=== PATIENT | male | born 1945 | race Caucasian/White ===

== ENCOUNTER → 2018-01-18 08:56 | Outpatient (CLI) | payer MEDICARE, SELFPAY ==
[2018-01-18 12:47] LABS: Absolute Lymphocyte Count 2.66 X10^3/ul (0.83-4.51); Absolute Neutrophil Count 2.2 X10^3/uL (2.0-7.7); Basophil# 0.03 X10^3/uL; Basophil% 0.5 % (0-1); Eosinophil# 0.29 X10^3/uL; Hematocrit 49.6 % (40-54); Lymphocyte # 2.66 X10^3/ul (4.0); Lymphocyte % 45.9 % (19-41); Mean Corp Hgb Conc 34.3 g/gl (32-36); Mean Corpuscular Hgb 31.7 pg (27.0-32.0); Mean Corpuscular Volume 92.5 fL (80-94); Mean Platelet Vol. 10.6 fl (6.2-12.0); Monocyte# 0.61 X10^3/uL; Monocyte% 10.5 % (0-10); Neutrophil # 2.18 X10^3/uL (2.7-7.7); Neutrophil % 37.8 % (47-70); Platelet Count 141 K/mm3 (150-450); RBC Distribution Width CV 12.4 % (11.6-14.6); RBC Distribution Width SD 41.7 fl (35.1-43.9); Red Blood Count 5.36 M/mm3 (4.6-6.2); White Blood Count 5.8 K/mm3 (4.4-11.0)
[2018-01-18 12:50] LABS: POSITIVE COUNT NO; POSITIVE DIFFERENTIAL NO; POSITIVE MORPHOLOGY NO
[2018-01-18 13:09] LABS: Vitamin D,25 Hydroxy 12.6 ng/mL (29.95-100.01)
[2018-01-18 13:15] LABS: ALB/GLOB Ratio 1.3 RATIO (0.9-2.4); AST(SGOT) 47 U/L (15-37); Alanine Aminotransfer ALT/SGPT 125 U/L (16-61); Albumin, Serum 4.4 g/dL (3.2-5.0); Alkaline Phosphatase 44 U/L (45-117); Anion Gap 9 (5-15); BUN 19 mg/dL (7-18); BUN/Creat Ratio 15.7 RATIO (10-20); Calcium,Total 8.8 mg/dL (8.5-10.1); Chloride 99 mmol/L (98-107); Creatinine, Serum 1.21 mg/dL (0.70-1.30); EST Glomerular Filtration Rate 62 mL/min (>60); Est Glom Filt Rate - Afr Amer 75 mL/min (>60); Globulin 3.5 g/dL (2.2-4.2); Glucose 105 mg/dL (74-106); Protein, Total 7.9 g/dL (6.4-8.2); Sodium Level 136 mmol/L (136-145); Thyroid Stim Hormone (TSH) 2.05 uIU/mL (0.358-3.74)
== END ==
PROVIDERS: Family Provider Family Medicine Geriatric Medicine; PCP Family Medicine Geriatric Medicine; Visit Provider Family Medicine Geriatric Medicine
DX: E55.9 Vitamin D deficiency, unspecified (principal); I10 Essential (primary) hypertension
CPT/HCPCS: 36415; 80053; 82306; 84443; 85025

== ENCOUNTER → 2018-12-09 10:05 | Outpatient (CLI) | payer MEDICARE, SELFPAY ==
[2018-08-05 08:35] VITALS: BMI 31.8
--- NOTE | 2018-12-09 10:08 | RAD_ITS ---
STUDY: X-RAY - RIGHT FOOT CLINICAL: Male, 73 years old. Pain along the plantar aspect of the foot. No known injury. TECHNIQUE: 3 view(s) of the foot. COMPARISON: None. FINDINGS: There is an enthesophyte involving the posterior superior calcaneus at the site of insertion of the Achilles tendon. Normal visualized subtalar, talonavicular, calcaneocuboid, tarsal and tarsometatarsal articulations. Normal metatarsi. Normal metatarsophalangeal joint of the great toe. Normal tibial and fibular sesamoid bones. Normal interphalangeal joint of the great toe. Normal phalanges of the great toe. Normal second through fifth metatarsophalangeal joints. Normal interphalangeal joints and phalanges of the lesser toes. The soft tissue structures are unremarkable. RAD/Foot min 3 Views IMPRESSION: Small spur at the insertion of the Achilles tendon. Electronically Signed: Mitchel Pearson, at 11:19 EDT , Service support ,
== END ==
PROVIDERS: Family Provider Family Medicine Geriatric Medicine; PCP Family Medicine Geriatric Medicine; Referring Provider Family Medicine Geriatric Medicine; Visit Provider Family Medicine Geriatric Medicine
DX: M79.671 Pain in right foot (principal)
CPT/HCPCS: 73630

== ENCOUNTER → 2019-01-20 09:51 | Outpatient (CLI) | payer MEDICARE, SELFPAY ==
[2018-08-05 08:35] VITALS: BMI 31.8
[2019-01-20 12:41] LABS: Absolute Lymphocyte Count 2.41 X10^3/uL (0.83-4.51); Absolute Neutrophil Count 1.8 X10^3/uL (2.0-7.7); Basophil# 0.06 X10^3/uL; Basophil% 1.1 % (0-1); Eosinophil# 0.41 X10^3/uL; Eosinophils% 7.6 % (0-5); Hemoglobin 15.4 g/dL (13.0-16.5); Lymphocyte # 2.41 X10^3/ul (4.0); Lymphocyte % 44.9 % (19-41); Mean Corp Hgb Conc 33.5 g/dL (32-36); Mean Corpuscular Hgb 31.3 pg (27.0-32.0); Mean Corpuscular Volume 93.5 fL (80-94); Mean Platelet Vol. 9.9 fl (6.2-12.0); Monocyte# 0.61 X10^3/uL; Monocyte% 11.4 % (0-10); NRBC Flagged by Analyzer 0 % (0-5); Neutrophil # 1.82 X10^3/uL (2.7-7.7); Neutrophil % 33.9 % (47-70); Platelet Count 154 K/mm3 (150-450); RBC Distribution Width CV 12.2 % (11.6-14.6); RBC Distribution Width SD 41.9 fl (35.1-43.9); Red Blood Count 4.92 M/mm3 (4.6-6.2); White Blood Count 5.4 K/mm3 (4.4-11.0)
[2019-01-20 12:58] LABS: Vitamin D,25 Hydroxy 22.8 ng/mL (29.95-100.01)
[2019-01-20 13:01] LABS: ALB/GLOB Ratio 1.2 RATIO (0.9-2.4); AST(SGOT) 28 U/L (15-37); Alanine Aminotransfer ALT/SGPT 77 U/L (16-61); Albumin, Serum 4.2 g/dL (3.2-5.0); Alkaline Phosphatase 39 U/L (45-117); Anion Gap 8 (5-15); BUN 19 mg/dL (7-18); BUN/Creat Ratio 16.1 RATIO (10-20); Calcium,Total 8.8 mg/dL (8.5-10.1); Chloride 103 mmol/L (98-107); Creatinine, Serum 1.18 mg/dL (0.70-1.30); EST Glomerular Filtration Rate 64 mL/min (>60); Est Glom Filt Rate - Afr Amer 77 mL/min (>60); Globulin 3.4 g/dL (2.2-4.2); Glucose 108 mg/dL (74-106); Potassium 4.1 mmol/L (3.5-5.1); Protein, Total 7.6 g/dL (6.4-8.2); Sodium Level 139 mmol/L (136-145); Thyroid Stim Hormone (TSH) 1.49 uIU/mL (0.358-3.74); Uric Acid 6.5 mg/dL (3.5-7.2)
== END ==
PROVIDERS: Family Provider Family Medicine Geriatric Medicine; PCP Family Medicine Geriatric Medicine; Visit Provider Family Medicine Geriatric Medicine
DX: E55.9 Vitamin D deficiency, unspecified (principal); I10 Essential (primary) hypertension; M10.9 Gout, unspecified
CPT/HCPCS: 36415; 80053; 82306; 84443; 84550; 85025

== ENCOUNTER → 2020-01-23 09:48 | Outpatient (CLI) | payer MEDICARE, SELFPAY ==
[2019-08-04 09:23] VITALS: BMI 29.2
[2020-01-23 12:04] LABS: Absolute Lymphocyte Count 2.76 X10^3/uL (0.83-4.51); Absolute Neutrophil Count 1.8 X10^3/uL (2.0-7.7); Basophil# 0.07 X10^3/uL; Basophil% 1.3 % (0-1); Eosinophil# 0.31 X10^3/uL; Eosinophils% 5.7 % (0-5); Hematocrit 47.2 % (40-54); Hemoglobin 16.3 g/dL (13.0-16.5); Lymphocyte # 2.76 X10^3/ul (4.0); Lymphocyte % 50.4 % (19-41); Mean Corp Hgb Conc 34.5 g/dL (32-36); Mean Corpuscular Hgb 32.1 pg (27.0-32.0); Mean Corpuscular Volume 93.1 fL (80-94); Mean Platelet Vol. 10.3 fl (6.2-12.0); Monocyte# 0.54 X10^3/uL; Monocyte% 9.9 % (0-10); NRBC Flagged by Analyzer 0 % (0-5); Neutrophil # 1.75 X10^3/uL (2.7-7.7); Neutrophil % 31.8 % (47-70); Platelet Count 144 K/mm3 (150-450); RBC Distribution Width CV 11.9 % (11.6-14.6); RBC Distribution Width SD 40.1 fl (35.1-43.9); Red Blood Count 5.07 M/mm3 (4.6-6.2); White Blood Count 5.5 K/mm3 (4.4-11.0)
[2020-01-23 12:32] LABS: Vitamin D,25 Hydroxy 18.8 ng/mL
[2020-01-23 13:00] LABS: ALB/GLOB Ratio 1.3 RATIO (0.9-2.4); AST(SGOT) 32 U/L (15-37); Alanine Aminotransfer ALT/SGPT 91 U/L (16-61); Albumin, Serum 4.2 g/dL (3.2-5.0); Alkaline Phosphatase 40 U/L (45-117); Anion Gap 7 (5-15); BUN 16 mg/dL (7-18); BUN/Creat Ratio 12.9 RATIO (10-20); Calcium,Total 8.8 mg/dL (8.5-10.1); Chloride 103 mmol/L (98-107); Creatinine, Serum 1.24 mg/dL (0.70-1.30); EST Glomerular Filtration Rate 60 mL/min (>60); Est Glom Filt Rate - Afr Amer 73 mL/min (>60); Globulin 3.3 g/dL (2.2-4.2); Glucose 135 mg/dL (74-106); Potassium 3.5 mmol/L (3.5-5.1); Protein, Total 7.5 g/dL (6.4-8.2); Sodium Level 138 mmol/L (136-145); Thyroid Stim Hormone (TSH) 1.82 uIU/mL (0.358-3.74)
== END ==
PROVIDERS: PCP Family Medicine Geriatric Medicine; Visit Provider Family Medicine Geriatric Medicine
DX: I10 Essential (primary) hypertension (principal); E55.9 Vitamin D deficiency, unspecified
CPT/HCPCS: 36415; 80053; 82306; 84443; 85025

== ENCOUNTER → 2021-01-23 09:17 | Outpatient (CLI) | payer MEDICARE, SELFPAY ==
[2021-01-23 12:26] LABS: Absolute Lymphocyte Count 2.85 X10^3/uL (0.83-4.51); Absolute Neutrophil Count 1.6 X10^3/uL (2.0-7.7); Basophil# 0.08 X10^3/uL; Basophil% 1.4 % (0-1); Eosinophil# 0.62 X10^3/uL; Eosinophils% 10.7 % (0-5); Hematocrit 47.3 % (40-54); Hemoglobin 16.5 g/dL (13.0-16.5); Lymphocyte # 2.85 X10^3/ul (0.83-4.51); Lymphocyte % 49.3 % (19-41); Mean Corp Hgb Conc 34.9 g/dL (32-36); Mean Corpuscular Hgb 31.9 pg (27.0-32.0); Mean Corpuscular Volume 91.5 fL (80-94); Mean Platelet Vol. 10.4 fl (6.2-12.0); Monocyte# 0.57 X10^3/uL; Monocyte% 9.9 % (0-10); NRBC Flagged by Analyzer 0 % (0-5); Neutrophil # 1.62 X10^3/uL (2.7-7.7); Platelet Count 129 K/mm3 (150-450); RBC Distribution Width CV 11.9 % (11.6-14.6); RBC Distribution Width SD 39.8 fl (35.1-43.9); Red Blood Count 5.17 M/mm3 (4.6-6.2); White Blood Count 5.8 K/mm3 (4.4-11.0)
[2021-01-23 12:49] LABS: Vitamin D,25 Hydroxy 19.9 ng/mL
[2021-01-23 13:25] LABS: ALB/GLOB Ratio 1.2 RATIO (0.9-2.4); AST(SGOT) 38 U/L (15-37); Alanine Aminotransfer ALT/SGPT 112 U/L (16-61); Albumin, Serum 4.1 g/dL (3.2-5.0); Alkaline Phosphatase 57 U/L (45-117); Anion Gap 9 (5-15); BUN 17 mg/dL (7-18); BUN/Creat Ratio 14.4 RATIO (10-20); Chloride 103 mmol/L (98-107); Creatinine, Serum 1.18 mg/dL (0.70-1.30); EST Glomerular Filtration Rate 64 mL/min (>60); Est Glom Filt Rate - Afr Amer 77 mL/min (>60); Globulin 3.4 g/dL (2.2-4.2); Glucose 110 mg/dL (74-106); Protein, Total 7.5 g/dL (6.4-8.2); Sodium Level 138 mmol/L (136-145); Thyroid Stim Hormone (TSH) 1.91 uIU/mL (0.358-3.74); Uric Acid 7.4 mg/dL (3.5-7.2)
== END ==
PROVIDERS: PCP Family Medicine Geriatric Medicine; Visit Provider Family Medicine Geriatric Medicine
DX: I10 Essential (primary) hypertension (principal); E55.9 Vitamin D deficiency, unspecified; M10.9 Gout, unspecified
CPT/HCPCS: 36415; 80053; 82306; 84443; 84550; 85025

== ENCOUNTER → 2021-02-01 07:03 | Outpatient (CLI) | payer MEDICARE, SELFPAY ==
--- NOTE | 2021-02-01 07:09 | US_ITS ---
STUDY: ABDOMINAL ULTRASOUND - RIGHT UPPER QUADRANT REASON FOR VISIT: Male, 75 years old ABN LIVER ENZYMES TECHNIQUE: Ultrasound evaluation of the right upper quadrant was performed with real-time and static barajas-scale imaging. TECHNICAL QUALITY: Adequate. COMPARISON: None. FINDINGS: Liver: The liver measures 16.4 cm. There is increased echogenicity consistent with fatty infiltration. The bile ducts are within normal limits. There is hepatic color flow. The direction of portal flow is hepatopetal. There is a 1.1 cm x 0.7 cm x 0.7 cm cyst in the left lobe of the liver. Gallbladder: The patient is status post cholecystectomy. Common Bile Duct (C.B.D.): The common bile duct measures 5.4 mm. Pancreas: Normal size of the head, body and tail of the pancreas. There is increased echogenicity of the pancreas. There is no demonstrated pancreatic mass or cyst. Right Kidney: Normal size of the right kidney. The right kidney measures 11.4 cm x 4.8 cm x 5 cm. Normal renal cortex. The right cortex measures 1.2 cm. There is no demonstrated renal mass or cyst. There is no right hydronephrosis. IMPRESSION: Fatty infiltration of the liver. 1.1 cm x 0.7 cm x 0.7 cm cyst in the left lobe of the liver. Status post cholecystectomy. Electronically Signed: Mitchel Pearson MD at 12:28 EST , Service support , STUDY: ABDOMINAL ULTRASOUND - ELASTOGRAPHY REASON FOR VISIT: Male, 75 years old. Fatty infiltration of the liver. Elevated liver enzymes. TECHNIQUE: Liver stiffness measurements were obtained on a doggyloot RS 85 ultrasound machine using a CA 1-7 probe following the SRU guidelines. 3 measurements were obtained using a 2-D-SWE method. The IQR/M was 24% suggesting a quality data set. TECHNICAL QUALITY: Adequate. COMPARISON: Comparison is made with prior sonogram done earlier today. FINDINGS: Liver: There is fatty infiltration of the liver. Median liver stiffness measured 7.5 kPa. US/Abdomen Limited IMPRESSION: Liver stiffness measures 7.5 kPa compatible with F2 Metavir score. Electronically Signed: Mitchel Pearson MD at 12:30 EST , Service support ,
--- NOTE | 2021-02-01 07:09 | US_ITS ---
STUDY: ABDOMINAL ULTRASOUND - RIGHT UPPER QUADRANT REASON FOR VISIT: Male, 75 years old ABN LIVER ENZYMES TECHNIQUE: Ultrasound evaluation of the right upper quadrant was performed with real-time and static barajas-scale imaging. TECHNICAL QUALITY: Adequate. COMPARISON: None. FINDINGS: Liver: The liver measures 16.4 cm. There is increased echogenicity consistent with fatty infiltration. The bile ducts are within normal limits. There is hepatic color flow. The direction of portal flow is hepatopetal. There is a 1.1 cm x 0.7 cm x 0.7 cm cyst in the left lobe of the liver. Gallbladder: The patient is status post cholecystectomy. Common Bile Duct (C.B.D.): The common bile duct measures 5.4 mm. Pancreas: Normal size of the head, body and tail of the pancreas. There is increased echogenicity of the pancreas. There is no demonstrated pancreatic mass or cyst. Right Kidney: Normal size of the right kidney. The right kidney measures 11.4 cm x 4.8 cm x 5 cm. Normal renal cortex. The right cortex measures 1.2 cm. There is no demonstrated renal mass or cyst. There is no right hydronephrosis. IMPRESSION: Fatty infiltration of the liver. 1.1 cm x 0.7 cm x 0.7 cm cyst in the left lobe of the liver. Status post cholecystectomy. Electronically Signed: Mitchel Pearson MD at 12:28 EST , Service support , STUDY: ABDOMINAL ULTRASOUND - ELASTOGRAPHY REASON FOR VISIT: Male, 75 years old. Fatty infiltration of the liver. Elevated liver enzymes. TECHNIQUE: Liver stiffness measurements were obtained on a [employer] RS 85 ultrasound machine using a CA 1-7 probe following the SRU guidelines. 3 measurements were obtained using a 2-D-SWE method. The IQR/M was 24% suggesting a quality data set. TECHNICAL QUALITY: Adequate. COMPARISON: Comparison is made with prior sonogram done earlier today. FINDINGS: Liver: There is fatty infiltration of the liver. Median liver stiffness measured 7.5 kPa. US/Elastography Parenchyma/Organ IMPRESSION: Liver stiffness measures 7.5 kPa compatible with F2 Metavir score. Electronically Signed: Mitchel Pearson MD at 12:30 EST , Service support ,
== END ==
PROVIDERS: PCP Family Medicine Geriatric Medicine; Referring Provider Family Medicine Geriatric Medicine; Visit Provider Family Medicine Geriatric Medicine
DX: R74.8 Abnormal levels of other serum enzymes (principal)
CPT/HCPCS: 76705; 76981

== ENCOUNTER 2022-01-29 08:59 | Outpatient (CLI) | payer MEDICARE, SELFPAY ==
[2022-01-29 12:23] LABS: Absolute Lymphocyte Count 2.26 X10^3/uL (0.83-4.51); Absolute Neutrophil Count 1.6 X10^3/uL (2.0-7.7); Basophil# 0.08 X10^3/uL; Basophil% 1.5 % (0-1); Eosinophils% 13.5 % (0-5); Hematocrit 47.1 % (40-54); Hemoglobin 16.4 g/dL (13.0-16.5); Lymphocyte # 2.26 X10^3/ul (0.83-4.51); Lymphocyte % 43.5 % (19-41); Mean Corp Hgb Conc 34.8 g/dL (32-36); Mean Corpuscular Hgb 32.6 pg (27.0-32.0); Mean Corpuscular Volume 93.6 fL (80-94); Mean Platelet Vol. 10.3 fl (6.2-12.0); Monocyte% 9.6 % (0-10); NRBC Flagged by Analyzer 0 % (0-5); Neutrophil # 1.62 X10^3/uL (2.7-7.7); Neutrophil % 31.1 % (47-70); Platelet Count 133 K/mm3 (150-450); RBC Distribution Width CV 12.1 % (11.6-14.6); RBC Distribution Width SD 42.2 fl (35.1-43.9); Red Blood Count 5.03 M/mm3 (4.6-6.2); White Blood Count 5.2 K/mm3 (4.4-11.0)
[2022-01-29 12:40] LABS: Vitamin D,25 Hydroxy 21.8 ng/mL
[2022-01-29 13:15] LABS: ALB/GLOB Ratio 1.5 RATIO (0.9-2.4); AST(SGOT) 32 U/L (15-37); Alanine Aminotransfer ALT/SGPT 89 U/L (16-61); Albumin, Serum 4.4 g/dL (3.2-5.0); Alkaline Phosphatase 51 U/L (45-117); Anion Gap 10 (5-15); BUN 22 mg/dL (7-18); BUN/Creat Ratio 21.2 RATIO (10-20); Calcium,Total 9.3 mg/dL (8.5-10.1); Chloride 106 mmol/L (98-107); Creatinine, Serum 1.04 mg/dL (0.70-1.30); EST Glomerular Filtration Rate 73 mL/min (>60); Est Glom Filt Rate - Afr Amer 89 mL/min (>60); Glucose 105 mg/dL (74-106); Protein, Total 7.4 g/dL (6.4-8.2); Sodium Level 141 mmol/L (136-145); Thyroid Stim Hormone (TSH) 2.27 uIU/mL (0.358-3.74)
== END 2022-01-29 23:59 | disposition home or self-care (01) ==
LOC: POLAB3 08:59
PROVIDERS: PCP Family Medicine Geriatric Medicine; Visit Provider Family Medicine Geriatric Medicine
DX: E55.9 Vitamin D deficiency, unspecified (principal); R53.83 Other fatigue
CPT/HCPCS: 36415; 80053; 82306; 84443; 85025

== ENCOUNTER → 2023-02-02 | Outpatient (CLI) | payer MEDICARE, SELFPAY ==
[2023-02-02 14:56] LABS: Absolute Neutrophil Count 2.1 X10^3/uL (2.0-7.7); Basophil# 0.05 X10^3/uL; Basophil% 0.9 % (0-1); Eosinophil# 0.64 X10^3/uL; Eosinophils% 11.1 % (0-5); Hematocrit 48.6 % (40-54); Hemoglobin 16.1 g/dL (13.0-16.5); Lymphocyte % 41.5 % (19-41); Mean Corp Hgb Conc 33.1 g/dL (32-36); Mean Corpuscular Hgb 31.4 pg (27.0-32.0); Mean Corpuscular Volume 94.9 fL (80-94); Mean Platelet Vol. 10.6 fl (6.2-12.0); Monocyte# 0.58 X10^3/uL; NRBC Flagged by Analyzer 0 % (0-5); Neutrophil # 2.07 X10^3/uL (2.7-7.7); Neutrophil % 35.8 % (47-70); Platelet Count 112 K/mm3 (150-450); RBC Distribution Width CV 12.1 % (11.6-14.6); RBC Distribution Width SD 42.5 fl (35.1-43.9); Red Blood Count 5.12 M/mm3 (4.6-6.2); White Blood Count 5.8 K/mm3 (4.4-11.0)
[2023-02-02 15:06] LABS: Vitamin D,25 Hydroxy 26.3 ng/mL
[2023-02-02 15:18] LABS: ALB/GLOB Ratio 1.2 RATIO (0.9-2.4); AST(SGOT) 27 U/L (15-37); Alanine Aminotransfer ALT/SGPT 68 U/L (16-61); Alkaline Phosphatase 47 U/L (45-117); Anion Gap 5 (5-15); BUN 24 mg/dL (7-18); BUN/Creat Ratio 19.8 RATIO (10-20); Calcium,Total 8.4 mg/dL (8.5-10.1); Chloride 111 mmol/L (98-107); Creatinine, Serum 1.21 mg/dL (0.70-1.30); EST Glomerular Filtration Rate 61 mL/min (>60); Est Glom Filt Rate - Afr Amer 74 mL/min (>60); Globulin 3.4 g/dL (2.2-4.2); Glucose 114 mg/dL (74-106); Potassium 4.8 mmol/L (3.5-5.1); Protein, Total 7.4 g/dL (6.4-8.2); Sodium Level 142 mmol/L (136-145); Thyroid Stim Hormone (TSH) 1.43 uIU/mL (0.358-3.74)
== END | disposition home or self-care (01) ==
LOC: POLAB3 13:58
PROVIDERS: PCP Family Medicine Geriatric Medicine; Visit Provider Family Medicine Geriatric Medicine
DX: I10 Essential (primary) hypertension (principal); E55.9 Vitamin D deficiency, unspecified
CPT/HCPCS: 36415; 80053; 82306; 84443; 85025

== ENCOUNTER 2023-04-15 10:30 | Outpatient (RCR) | payer MEDICARE, SELFPAY ==
--- NOTE | 2023-03-19 15:49 | HP.PTEVAL_ITS ---
Patient's Visit Information Visit Information Visit Information: TED DIOR is a 77 year old M referred to Physical Therapy by Dr. Forrest Kay MD with a diagnosis of Parkinsonism. Date of Evaluation: 03/19/23 Physical Therapist: MARYJANE Arreola Visit Plan Frequency: 2x /Week Duration: 4 Weeks Plan: Schedule balance eval on machine 2X/ week for 4 weeks for gait training, balance training foam and no foam, picking up objects form the floor, curb steps, stepping over hurdles with HEP HEP: LTR, Bridges, standing heel and toe raises, seated and standing opp arm and leg Subjective Subjective: Pt was recently dx with PD. He has never gotten the official PD dx but it is what it could be. He has shaking on the L hand and only in the mo rning when he gets up. He has an intentional tremor. He has LBP (has 5 gardens and down on his knees a lot picking up weeds and needs assistance to get up with a chair etc). He gets to the point that he gets a pain and then goes in a rests a little and then can go back out to the garden. He does not notices it when he does things or when sleeping. The back pain will stop him from completing a task and needs to rest to complete the task. He thinks that Dr Kay notices that he is walking different. He notices some weakness and hard to walk on uneven surfaces and a little more unsteady. He has on occ recently taken a cane with him when unsteady that he made. Stairs: not an issue. He is able to get out of a chair without using his arms. He does not do a lot of walking. Objective Objective: LE MMT: R hip flex 15.2 and L 16.2 R knee ext 24.3 and L 24.7 R knee flex 11.8 and 14 R hip abd 12.4 and L 12.2 Bridge: 3/4 normal ROM bridge with increase pain but then did X 10 LTR to each side and was able to do a bridge without pain Pt is able to heel and toe raise WFL Sit to stand: pt is able to get up out of a chair without the use of his UE Seated opp arm and leg X 4 and then reverts to same side standing opp arm and leg X 5 and then reverts to same side FGA: 18 CATSIB 110/120 Squating to get object from floor with slight unsteadiness but able to do it Balance/Special Test Scores Functional Gait Assessment Score: 18 % Disability: 40.0000 CATSIB Score (Max score 120 seconds): 110 Lower Extremity Functional Score: 61 Goals Goal 1:: I HEP Goal Time Frame: 4-6 Weeks Goal 2:: Be able to step off a curb X 10 in a row without AD Goal Time Frame: 4-6 Weeks Goal 3:: Be able to complete X 10 standing opp arm and legs without LOB and without messing up sequence Goal Time Frame: 4-6 Weeks Goal 4:: Increase balance (FGA was 18 on eval) Goal Time Frame: 4-6 Weeks Goal 5:: Increase balance (catsib was 110/120 on eval with Foam EC the issue) Goal Time Frame: 4-6 Weeks Goal 6:: Walk with more upright posture with heel to toe gait pattern Goal Time Frame: 4-6 Weeks Rehabilitation Potential Rehabilitation Potential: Good Anticipated Interventions Text: Thank you for the opportunity to evaluate your patient. For Medicare and Medicare HMO plans, please review the plan of care and approve it. It will need to be FAXED BACK to us at [phone] for Medicare purposes. For Medicare only, by signing this I certify the plan of care. Please let me know if there are questions or concerns regarding this plan of care. Physician Signature:__ Date:
--- NOTE | 2023-04-15 11:13 | HP.PTDCSUM ---
Discharge Summary D/C summary: It has been my pleasure to treat TED DIOR referred by Dr. Forrest Kay MD, with the diagnosis of Parkinsonism for a total of 8 visit(s). Discharge Date: 04/15/23 Please see the following information for a summary of their discharge status. Subjective Subjective: Pt has been sick with diarrhea since Thursday and has not been out of bed. He wants me to go easy on him today. The dizziness went away. Pain LBP: Pain Intensity (Out of 10): 0 Objective Objective/Function: Posture: upright posture CATSIB: 120/120 FGA: 23 opp arm and leg X 12 each leg with CGA Goals Goal 1:: I HEP Goal 2:: Be able to step off a curb X 10 in a row without AD Goal 3:: Be able to complete X 10 standing opp arm and legs without LOB and without messing up sequence Goal Progress: Goal Met Goal 4:: Increase balance (FGA was 18 on eval) Goal Progress: Goal Met Goal 5:: Increase balance (catsib was 110/120 on eval with Foam EC the issue) Goal Progress: Goal Met Goal 6:: Walk with more upright posture with heel to toe gait pattern Goal Progress: Goal Met Plan Plan: DC PT to own walking period D/C Information Discharge Comments: DC PT to indep walking program d/c sentence: If there are questions or concerns regarding this patient's physical therapy, please feel free to call me at [phone]. Thank you for the referral of this patient. Sincerely, Anu Morrison, MPT Balance/Gait/Functional tests Balance/Special Test Scores Functional Gait Assessment Score: 23 % Disability: 23.3400 CATSIB Score (Max score 120 seconds): 110 Lower Extremity Functional Score: 64
== END 2023-04-15 19:00 | disposition home or self-care (01) ==
LOC: PT 10:30
PROVIDERS: PCP Family Medicine Geriatric Medicine; Referring Provider Psychiatry & Neurology Neurology; Visit Provider Psychiatry & Neurology Neurology
DX: G20.C Parkinsonism, unspecified (principal)
CPT/HCPCS: 97110; 97112; 97140; 97162; 97530

== ENCOUNTER → 2024-02-09 | Outpatient (CLI) | payer MEDICARE, SELFPAY ==
[2024-02-09 10:49] LABS: Absolute Lymphocyte Count 2.69 X10^3/uL (0.83-4.51); Absolute Neutrophil Count 2.1 X10^3/uL (2.0-7.7); Basophil# 0.05 X10^3/uL; Basophil% 0.9 % (0-1); Eosinophil# 0.45 X10^3/uL; Eosinophils% 7.8 % (0-5); Hematocrit 47.8 % (40-54); Hemoglobin 15.9 g/dL (13.0-16.5); Lymphocyte # 2.69 X10^3/ul (0.83-4.51); Lymphocyte % 46.4 % (19-41); Mean Corp Hgb Conc 33.3 g/dL (32-36); Mean Corpuscular Hgb 31.1 pg (27.0-32.0); Mean Corpuscular Volume 93.5 fL (80-94); Mean Platelet Vol. 9.8 fl (6.2-12.0); Monocyte# 0.48 X10^3/uL; Monocyte% 8.3 % (0-10); NRBC Flagged by Analyzer 0 % (0-5); Neutrophil # 2.05 X10^3/uL (2.7-7.7); Neutrophil % 35.2 % (47-70); Platelet Count 108 K/mm3 (150-450); RBC Distribution Width SD 41.6 fl (35.1-43.9); Red Blood Count 5.11 M/mm3 (4.6-6.2); White Blood Count 5.8 K/mm3 (4.4-11.0)
[2024-02-09 11:16] LABS: ALB/GLOB Ratio 1.3 RATIO (0.9-2.4); AST(SGOT) 33 U/L (15-37); Alanine Aminotransfer ALT/SGPT 17 U/L (16-61); Albumin, Serum 4.1 g/dL (3.2-5.0); Alkaline Phosphatase 53 U/L (45-117); Anion Gap 6 (5-15); BUN 22 mg/dL (7-18); BUN/Creat Ratio 18.2 RATIO (10-20); Calcium,Total 8.8 mg/dL (8.5-10.1); Chloride 111 mmol/L (98-107); Cholesterol 183 mg/dL (200); Creatinine, Serum 1.21 mg/dL (0.70-1.30); EST Glomerular Filtration Rate 61 mL/min (>60); Est Glom Filt Rate - Afr Amer 74 mL/min (>60); Globulin 3.1 g/dL (2.2-4.2); Glucose 136 mg/dL (74-106); High Density Lipoprotein 43 mg/dL; Potassium 4.3 mmol/L (3.5-5.1); Protein, Total 7.2 g/dL (6.4-8.2); Sodium Level 142 mmol/L (136-145); Triglycerides 249 mg/dL; Very Low Density Lipoprotein 50 mg/dL (5-40)
[2024-02-09 11:19] LABS: Vitamin D,25 Hydroxy 13.3 ng/mL
[2024-02-09 15:18] LABS: Hemoglobin A1c 5.6 % (3.8-5.6)
== END | disposition home or self-care (01) ==
LOC: POLAB3 10:00
PROVIDERS: PCP Family Medicine Geriatric Medicine; Visit Provider Family Medicine Geriatric Medicine
DX: I10 Essential (primary) hypertension (principal); E55.9 Vitamin D deficiency, unspecified; E78.5 Hyperlipidemia, unspecified; R73.9 Hyperglycemia, unspecified
CPT/HCPCS: 36415; 80053; 80061; 82306; 83036; 84443; 85025

== ENCOUNTER → 2025-01-18 | Outpatient (CLI) | payer MEDICARE, SELFPAY ==
--- NOTE | 2025-01-18 09:53 | ECHOCS_ITS ---
Reason For Study Reason For Study: CAD/ASHD Procedure This was a 2D Doppler, Color Flow transthoracic echocardiogram. The study was technically difficult. Contrast injection was performed. Exam performed in department. Left Ventricle Normal LV size. Left ventricular systolic function is normal. Normal diastology for age. The left ventricular ejection fraction is 65 %. No regional wall motion abnormalities noted. Right Ventricle Normal RV size. Normal systolic function. Atria Normal left atrium. Normal right atrium. Mitral Valve Normal mitral valve. Mild (1+) mitral valve insufficiency. Tricuspid Valve Normal tricuspid valve. Mild (1+) tricuspid valve insufficiency. Pulmonary artery systolic pressure is 33 mmHg. Aortic Valve Trisinus/trileaflet aortic valve. Mild focal aortic valve thickening. There is no aortic stenosis. Pulmonic Valve Normal pulmonic valve. Trivial pulmonic valve insufficiency. Great Vessels Normal sized aortic root. Pericardium/Pleural No pericardial effusion. Medication 22 gauge I.V. with prn adaptor inserted into right arm. Diluted definity 2ml given slow IV push to enhance endocardial definition. MMode/2D Measurements & Calculations LVIDd: 4.7 cm IVSd: 0.90 cm Ao root diam: 2.9 cm LVIDs: 3.1 cm LVPWd: 1.0 cm RVDd: 3.6 cm FS: 33.7 % LAV(MOD-bp): 37.6 ml LVAd ap4: 32.9 cm2 SV(MOD-sp4): 66.3 ml LAV(MOD-bp) Indexed: 17.8 ml/m2 LVLd ap4: 8.5 cm SI(MOD-sp4): 31.4 ml/m2 LAV(MOD-sp2): 41.6 ml EDV(MOD-sp4): 103.2 ml LAV(MOD-sp4): 34.4 ml EDV(sp4-el): 108.5 ml LVAs ap4: 17.6 cm2 LVLs ap4: 7.0 cm ESV(MOD-sp4): 36.9 ml ESV(sp4-el): 37.7 ml EF(MOD-sp4): 64.2 % EF(sp4-el): 65.3 % SV(sp4-el): 70.8 ml LA A4 area: 14.8 cm2 LA dimension(2D): 4.1 cm RA A4 area: 14.2 cm2 TAPSE: 2.4 cm Time Measurements MV dec time: 0.23 sec Doppler Measurements & Calculations MV E max mich: 70.8 cm/sec Lat Peak E' Mich: 5.6 cm/sec Med Peak E' Mich: 4.8 cm/sec MV A max mich: 92.7 cm/sec E/E' lat: 12.6 E/E' med: 14.6 MV E/A: 0.76 MV V2 max: 100.9 cm/sec MV P1/2t max mich: 86.4 cm/sec Ao V2 max: 151.4 cm/sec MV max P.1 mmHg MV P1/2t: 81.2 msec Ao max P.2 mmHg MV V2 mean: 54.3 cm/sec MV dec slope: 311.5 cm/sec2 Ao V2 mean: 97.7 cm/sec MV mean P.4 mmHg MVA(P1/2t): 2.7 cm2 Ao mean P.5 mmHg MV V2 VTI: 34.7 cm Ao V2 VTI: 32.0 cm AV (velocity ratio): 0.65 LV V1 max: 99.8 cm/sec PA V2 max: 154.5 cm/sec TR max mich: 272.4 cm/sec LV V1 max P.0 mmHg PA V2 mean: 92.3 cm/sec TR max P.7 mmHg LV V1 mean P.9 mmHg LV V1 mean: 64.5 cm/sec LV V1 VTI: 20.9 cm ECHO/Echo Complete W/ Contrast Interpretation Summary Normal LV size. Mild (1+) mitral valve insufficiency. Mild (1+) tricuspid valve insufficiency. Left ventricular systolic function is normal. The left ventricular ejection fraction is 65 %. Pulmonary artery systolic pressure is 33 mmHg. Contrast injection was performed. Ordering Physician: Latha Donovan Referring Physician: Latha Donovan Performed By: Chun V[facility]quze RCS
--- OUTSIDE RECORDS SUMMARY | 2025-01-18 10:25 | XMS RPT_ITS | CCD ---
Author Organization [facility] Care Team Providers Care Snow Removing Supervisor Name Role Phone EDYTA Skinner, Olimpia Knowles Unavailable Unavailabl e Gisela Wallace Unavailable Unavailable Iliana LAN, Jennifer Banda Unavailable Unavailable Gisela Wallace Unavailable Unavailable Esdras BENSON, Norman Primary Care Provider [phone] Dr. Tab Dewitt Chi Primary Care Provider [phone] Dr. Tab Dewitt Chi Referring Provider [phone] Lukas Cheng Attending Provider HERACLIO KAY Attending Unavailable ESDRAS, TAB-CHI Primary Care Unavailable BAVBILL, HERACLIO Attending Unavailable BAVBILL, HERACLIO Referring Unavailable ESDRAS, TAB-CHI Primary Care Unavailable BAVBILL, HERACLIO Attending Unavailable ESDRAS, TAB-CHI Primary Care Unavailable BAVBILL, HERACLIO Attending Unavailable ESDRAS, TAB-CHI Primary Care Unavailable BAVIS, HERACLIO Attending Unavailable ESDRAS, TAB-CHI Primary Care Unavailable BAVBILL, HERACLIO Attending Unavailable ESDRAS, TAB-CHI Primary Care Unavailable BAVBILL, HERACLIO Attending Unavailable BAVBILL, HEARCLIO Referring Unavailable ESDRAS, TAB-CHI Primary Care Unavailable BAVIS, HERACLIO Attending Unavailable BAVIS, HERACLIO Referring Unavailable ESDRAS, TAB-CHI Primary Care Unavailable Dr. Tab Dewitt MD, Chi Primary Care Physician [phone] Dr. Tab Dewitt MD, Chi Referring Provider [phone] Latha Lowe Attending Physician Esdras, Tab Chi Primary Care Unavailable Latha Lowe Referring Unavail able Latha Lowe Attending Unavail able Esdras, Tab Chi Primary Care Unavailable EsdrasTab Chi Attending Unavailable Esdras, Tab Chi Primary Care Unavailable Latha Lowe Attending Unavail able Esdras, Tab Chi Referring Unavailable Allergies Allergy Classification Reported Allergen(s) Allergy Type Date of Onset Reaction(s) Facility hydroCHLOROthiazide (2 sources) hydroCHLOROthiazide Drug Allergy [facility] Iodine (and Iodine containting drugs) (2 sources) Iodine Drug Allergy [facility] (4 sources) simvastatin drug allergy Very elevated liver enzymes [employer] Work Phone: [phone] (4 sources) BROTHER REACTION drug allergy Life-threaten ing, pt not allergic to Iodine, but brother is [employer] Work Phone: [phone] (3 sources) hydroCHLOROthiazide Drug Allergy fatigue [facility] (20 sources) Iodine Drug Allergy life threatening, pt not allergic to iodine, but brother is. [facility] (3 sources) Simvastatin Drug Allergy elevated liver enzymes [facility] (20 sources) hydroCHLOROthiazide Drug Allergy [facility] (20 sources) Simvastatin Allergy to substance [facility] (1 source) hydroCHLOROthiazide Drug Allergy [facility] Repository (1 source) Iodine Drug Allergy [facility] (1 source) Simvastatin Drug Allergy [facility] Rep[facility] Medications Current Medications Medication Drug Class(es) Dates Sig (Normalized) Sig (Original) amLODIPine 10 mg oral tablet (20 sources) Dihydropyridine Calcium Channel Lc Start: 12-22-2024 take 1 tablet by mouth once daily Start: 08-07-2020 End: 12-22-2024 take 1 tablet by mouth once daily Amlodipine 10 mg tablet Discontinued 10 mg PO DAILY 90 January 11, 2024 11:26am December 22, 2024 4:52pm Start: 08-05-2018 End: 08-07-2020 take 1 tablet by mouth once daily Amlodipine 5 mg tablet Discontinued 5 mg PO DAILY 90 August 07, 2020 10:16am August 07, 2020 10:28am Start: 07-27-2017 End: 09-18-2017 take 1 tablet by mouth once daily Amlodipine (Norvasc) 5 mg tablet Discontinued 5 mg PO daily July 27, 2017 12:00am September 18, 2017 9:05am Start: 08-11-2013 take 1 tablet by jamie th once daily NORVASC 5 MG TABS One tablet by mouth daily AMLODIPINE BESYLATE [id number] Lukas Cheng MD carbidopa 25 mg / levodopa 100 mg oral tablet (20 sources) Aromatic Amino Acid Decarboxylation Inhibitor, Aromatic Amino Acid Start: 12-11-2023 End: 02-19-2025 Start: 09-10-2023 End: 12-11-2023 take 1 tablet by mouth twice daily carbidopa-levodopa CR (Sinemet CR) 25-100 MG ER tablet Take 1 tablet by mouth 2 times daily. Do not crush, chew, or split. 180 tablet 1 09/10/2023 12/11/2023 Discontinued losartan potassium 100 mg oral tablet (20 sources) Angiotensin 2 Receptor Lc Start: 12-22-2024 take 1 tablet by mouth once daily Start: 10-27-2018 End: 12-22-2024 take 1 tablet by mouth once daily Losartan 100 mg tablet Discontinued 100 mg PO DAILY January 11, 2024 11:26am December 22, 2024 4:52pm 24 hr metoprolol succinate 50 mg extended release oral tablet (20 sources) beta-Adrenergic Lc Start: 12-22-2024 take 1 tablet by mouth once daily Start: 07-27-2017 End: 12-22-2024 take 1 tablet by mouth once daily Metoprolol Succinate 50 mg tablet extended release 24 hr Discontinued 50 mg PO daily January 11, 2024 11:26am December 22, 2024 4:52pm Start: 06-25-2010 take 1 tablet by jamie th once daily METOPROLOL SUCCINATE ER 50 MG [id number] One tablet by mouth daily METOPROLOL SUCCINATE [id number] Luis Chatman MD omeprazole 40 mg delayed rel ease oral capsule (20 sources) Proton Pump Inhibitor Start: 07-30-2017 End: 01-11-2024 Start: 07-27-2017 End: 07-30-2017 take 1 capsule by mouth once daily Omeprazole 20 mg capsule,delayed release(DR/EC) Discontinued 20 mg PO daily July 27, 2017 12:00am July 30, 2017 9:33am Start: 09-30-2011 take 1 tablet by jamie th every week OMEPRAZOLE 40 MG CPDR One tablet by mouth three days per week to daily OMEPRAZOLE [id number] Lukas Cheng MD Start: 09-30-2011 take 1 tablet by jamie th once daily OMEPRAZOLE 20 MG CPDR One tablet by mouth daily OMEPRAZOLE [id number] Lukas Cheng MD Start: 06-25-2010 take 1 tablet by jamie th once daily OMEPRAZOLE 40 MG CPDR One tablet by mouth daily OMEPRAZOLE [id number] Lukas Cheng MD tamsulosin hydrochloride 0.4 mg oral capsule (20 sources) alpha-Adrenergic Lc Start: 02-02-2023 take 1 capsule by mouth once daily Completed/Discontinued Medications Medication Drug Class(es) Dates Sig (Normalized) Sig (Original) aspirin 81 mg delayed release oral tablet (20 sources) Nonsteroidal Anti-inflammatory Drug Start: 04-07-2012 End: 01-11-2024 Aspirin (Adult Low Dose Aspirin) 81 mg tablet,delayed release (DR/EC) Discontinued 81 mg PO daily July 27, 2017 12:00am January 11, 2024 11:03am Start: 04-07-2012 take 2 tablets by mo [facility] once daily ASPIRIN 81 MG TABS Two tablets by mouth daily ASPIRIN [id number] Lukas Cheng MD Start: 06-25-2010 take 1 tablet by jamie once daily ASPIRIN 81 MG TABS One tablet by mouth daily ASPIRIN [id number] Lukas Cheng MD BUDESONIDE-FORMOTEROL FUMARATE (8 sources) Corticosteroid, beta2-Adrenergic Agonist Start: 06-25-2010 SYMBICORT 160-4.5 MCG/ACT AERO As needed BUDESONIDE-FORMOTEROL FUMARATE [id number] Kailyn Sheffield Start: 06-25-2010 End: 04-07-2012 SYMBICORT 160-4.5 MCG/ACT AE RO As needed BUDESONIDE-FORMOTEROL FUMARATE [id number] Lukas Cheng MD donepezil hydrochloride 5 mg oral tablet (1 source) Start: 09-07-2024 End: 09-07-2024 take 1 tablet by mouth once daily donepezil (Aricept) 5 MG tablet Indications: Mild cognitive impairment with memory loss Take 1 tablet (5 mg) by mouth daily with supper. 90 tablet 3 09/07/2024 09/07/2024 Discontinued doxazosin 2 mg oral tablet (20 sources) alpha-Adrenerg ic Lc Start: 08-13-2021 End: 12-23-2022 take 1 tablet by mouth at bedtime Doxazosin (Cardura) 2 mg tablet Discontinued 2 mg PO AT BEDTIME 90 October 17, 2022 10:35am December 23, 2022 9:17am fish oil (8 sources) Start: 06-25-2010 take 3 tablets by mouth twice daily FISH OIL CAPS Three tablets by mouth twice a day OMEGA-3 FATTY ACIDS CAPS [id number] Kailynmaame Sheffield Start: 06-25-2010 End: 07-26-2013 take 3 tablets by mouth twice daily FISH OIL CAPS Three tablets by mouth twice a day OMEGA-3 FATTY ACIDS CAPS [id number] Lukas Cheng MD fluocinonide 0.5 mg/ml topical cream (3 sources) Corticosteroid Start: 08-05-2018 End: 08-04-2019 Fluocinonide 0.05 % cream Discontinued TOPICAL 30 30 0 August 05, 2018 12:00am August 04, 2019 9:31am Start: 08-05-2018 End: 08-04-2019 Fluocinonide Discontinued TO PICAL 30 30 August 04, 2018 11:00pm August 04, 2019 8:31am gabapentin 100 mg oral capsule (3 sources) Anti-epileptic Agent Start: 08-05-2018 End: 08-04-2019 take 1 capsule by mouth twice daily Gabapentin 100 mg capsule Discontinued 100 mg PO TWICE A DAY August 05, 2018 12:00am August 04, 2019 9:32am hydroCHLOROthiazide 25 mg oral tablet (6 sources) Thiazide Diuretic Start: 10-27-2018 End: 08-07-2020 take 1 tablet by mouth once daily Hydrochlorothiazide 25 mg tablet Discontinued 25 mg PO DAILY 90 August 04, 2019 9:35am August 07, 2020 10:15am hydroCHLOROthiazide 25 mg / losartan potassium 100 mg oral tablet (20 sources) Thiazide Diuretic, Angiotensin 2 Receptor Lc Start: 07-27-2017 End: 10-27-2018 Losartan-Hydrochloroth iazide (Hyzaar) 100-25 mg tablet Discontinued 1 {tbl} PO daily 90 3 October 26, 2018 4:24pm October 27, 2018 7:40pm Start: 06-25-2010 take 1 tablet by jamie th once daily HYZAAR 100-25 MG TABS One tablet by mouth daily LOSARTAN POTASSIUM-HCTZ [id number] Lukas Cheng MD Start: 06-25-2010 take 1 tablet by jamie th once daily HYZAAR 100-25 MG TABS One tablet by mouth daily LOSARTAN POTASSIUM-HCTZ [id number] Lukas Cheng MD Start: 06-25-2010 take 1 tablet by jamie th once daily HYZAAR 100-25 MG TABS One tablet by mouth daily LOSARTAN POTASSIUM-HCTZ [id number] Lukas Cheng MD 24 hr isosorbide mononitrate 30 mg extended release oral tablet (20 sources) Start: 09-18-2017 End: 08-07-2020 take 1 tablet by mouth once daily Isosorbide Mononitrate 30 mg tablet extended release 24 hr Discontinued 0 .ROUTE .COMPLEX 90 3 October 01, 2018 9:41am August 04, 2019 9:34am TAKE ONE TABLET BY MOUTH EVERY DAY Start: 07-27-2017 End: 07-30-2017 take 1 tablet by mouth once daily in the morning, then take 1 tablet by mouth every twenty-four hours Isosorbide Mononitrate 30 mg tablet extended release 24 hr Discontinued 30 mg PO EVERY MORNING July 27, 2017 12:00am July 30, 2017 9:31am Start: 06-25-2010 take 1 tablet by mouth once da narendra ISOSORBIDE MONONITRATE ER 30 MG [id number] One tablet by mouth daily (Imdur) ISOSORBIDE MONONITRATE [id number] Lukas Cheng MD metFORMIN hydrochloride 500 mg oral tablet (8 sources) Biguanide Start: 03-04-2011 End: 04-07-2012 take 1 tablet by mouth once daily METFORMIN HCL 500 MG TABS One tablet by mouth daily temporarily for liver inflammation per Dr. Dewitt METFORMIN HCL [id number] Lukas Cheng MD naproxen sodium 220 mg oral tablet (3 sources) Nonsteroidal Anti-inflammatory Drug Start: 08-05-2018 End: 08-04-2019 take 1 tablet by mouth twice daily as needed Naproxen Sodium (Aleve) 220 mg tablet Discontinued 220 mg PO TWICE A DAY as needed August 05, 2018 12:00am August 04, 2019 9:33am sildenafil 50 mg oral tablet (6 sources) Phosphodiesterase 5 Inhibitor Start: 08-07-2020 End: 08-17-2020 take 1 tablet by mouth once daily as needed Sildenafil (Viagra) 50 mg tablet Discontinued 50 mg PO DAILY as needed for sexual activity 12 06August 08, 2020 4:41pm August 17, 2020 9:57am tadalafil 10 mg oral tablet (3 sources) Phosphodiesterase 5 Inhibitor Start: 08-17-2020 End: 08-13-2021 take 1 tablet by mouth every twenty-four hours Tadalafil (Cialis) 10 mg tablet Discontinued 10 mg PO DAILY as needed for sexual activity 12 09August 17, 2020 12:00am August 13, 2021 9:02am administer approximately 30min before sexual activity; do not use more than 1 dose per 24hrs Problems Active Problems Problem Classification Problem Date Documented Date Episodic/Chronic Coronary atherosclerosis and other heart disease (13 sources) Atherosclerotic heart disease of [place] coronary artery without angina pectoris; Translations: [Coronary atherosclerosis] Onset: 06-25-2010 07-30-2016 Chronic Disorders of lipid metabolism (7 sources) Hyperlipidemia; Translations: [Hyperlipidemia, unspecified] Onset: 06-25-2010 06-25-2010 Chronic Essential hypertension (11 sources) Hypertensive disorder; Translations: [Essential hypertension] Onset: 06-25-2010 06-25-2010 Chronic Other circulatory disease (3 sources) Carotid bruit; Translations: [Other specified symptoms and signs involving the circulatory and respiratory systems] 08-04-2018 Episodic Other hereditary and degenerative nervous system conditions (8 sources) Mild cognitive impairment, so stated; Translations: [Mild cognitive impairment, so stated] Onset: 05-20-2024 05-18-2024 Chronic Other nervous system disorders (1 source) Tremor; Translations: [Tremor, unspecified] 09-09-2022 Episodic Other nutritional; endocrine; and metabolic disorders (4 sources) Body mass index (BMI) 31.0-31.9, adult; Translations: [Body mass index (BMI) 31.0-31.9, adult] Onset: 07-31-2015 07-31-2015 Chronic Parkinson`s disease (2 sources) Parkinson`s disease; Translations: [Parkinson's disease without dyskinesia, without mention of fluctuations (HCC)] Onset: 12-11-2023 Residual codes; unclassified (20 sources) Obstructive sleep apnea syndrome; Translations: [Obstructive sleep apnea (adult) (pediatric)] 12-11-2023 Chronic Residual codes; unclassified (2 sources) Obstructive sleep apnea (adult) (pediatric); Translations: [Obstructive sleep apnea (adult) (pediatric)] Onset: 12-11-2023 Chronic Unclassified (1 source) Parkinsonism; Translations: [Parkinsonism, unspecified Parkinsonism type] 03-04-2023 Chronic Unclassified (9 sources) Parkinson's disease; Translations: [Parkinson's disease without dyskinesia or fluctuating manifestations (HCC)] 09-10-2023 Chronic Past or Other Problems Problem Classification Problem Date Documented Date Episodic/Chronic Conditions associated with dizziness or vertigo (12 sources) Vertigo; Translations: [Dizziness and giddiness] Onset: 05-20-2024 02-16-2024 Episodic Malaise and fatigue (5 sources) Fatigue; Translations: [Other fatigue] Onset: 05-18-2024 05-18-2024 Episodic Nonspecific chest pain (8 sources) Chest pain, unspecified; Translations: [Chest pain, unspecified] Onset: 06-25-2010 Resolved: 07-31-2015 07-31-2015 Episodic Other aftercare (4 sources) Other alf (current) drug therapy; Translations: [Other alf (current) drug therapy] Onset: 06-25-2010 06-25-2010 Episodic Other circulatory disease (12 sources) Abnormal result of cardiovascular function study, unspecified; Translations: [Carotid bruit] Onset: 06-25-2010 Resolved: 07-31-2015 06-25-2010 Episodic Unclassified (3 sources) Mild cognitive impairment with memory loss 05-18-2024 Results Test Name Value Interpretation Reference Range Facility Cardiology Visit Reporton Cardiology Visit Report [facility] [address] [place] [address] OFFICE VISIT Date of Service: 12/22/24 MR#: [id number] Acct: [id number] Name: LON DIOR Rep #: [id number] : 1945 Provider: PERFECTO Stuart Age/Sex: 79/M Location: [facility] [place] Status: Signed HPI HPI History of Present Illness Details: The patient is an 79-year-old male with minimal coronary artery disease, HTN, and DM, presenting for follow-up. He denies chest pain, heaviness, tightness, palpitations, or worsening dyspnea. He reports occasional mild lower extremity swelling, which is neither tight nor firm, and does not cause him concern. He is currently taking metoprolol, losartan, amlodipine, carvedilol, and tamsulosin. He reports sleeping well and rising daily at 5:00 AM. He remains active, tending to seven small home gardens, and enjoys regular visits from his extended family. Intake Vital Signs 01/11/24 10:00 12/22/24 13:00 Height 5 ft 9 in 5 ft 9 in Weight: 217 lb 216 lb BMI 32.0 31.8 BP 135/76 H 105/70 Blood Pressure Location Lt brachial Lt brachial Position Sitting Sitting Respiration 18 18 Pulse 74 71 Pulse Source Monitor Monitor Pulse Oximetry (%) 95 93 Oxygen Delivery Method room air Intake Visit Reasons: 1 Y [employer] Consultant Required: No Accompanied by: Is patient in pain?: No Allergies hydrochlorothiazide Adverse Reaction (Verified 12/22/24 15:44) fatigue iodine Adverse Reaction (Verified 12/22/24 15:44) life threatening, pt not allergic to iodine, but brother is. simvastatin (From Zocor) Adverse Reaction (Verified 12/22/24 15:44) elevated liver enzymes Medications ???Medication ???Instructions ???Recorded ???Confirmed ???Type amlodipine 10 mg tablet 10 mg PO DAILY #90 tabs 01/11/24 1 Rx carbidopa 25 mg-levodopa 100 mg 1 tab PO TID 01/11/24 12/22/24 His tory tablet losartan 100 mg tablet 100 mg PO DAILY #90 TABLETS 12/22/24 Rx metoprolol succinate 50 mg 50 mg PO QDAY #90 tabs 01/11/24 Rx tablet,extended release 24 hr omeprazole 40 mg capsule,delayed See Rx Instructions .Route 4 12/22/24 Rx release .COMPLEX #45 caps tamsulosin 0.4 mg capsule 0.4 mg PO QDAY 01/11/24 12/22/24 H istory Ejection fraction %: 72 Have you fallen in the past year?: No PFSH Medical History Obesity Essential (primary) hypertension GERD (gastroesophageal reflux disease) Carotid bruit Atherosclerotic heart disease of [place] coronary artery without angina pectoris HLD (hyperlipidemia) Surgical History History of 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 samaritan History of left heart catheterization (06/12/04) Hx of cholecystectomy Hx of hernia repair History of tonsillectomy Family History Father Colon cancer Brother Hypertension Sister Hypertension Social History Smoking Status: Former smoker how long ago did patient quit smokin years ago alcohol intake: never substance use type: does not use caffeine: Yes Type: coffee Number of servings: 1 ROS Const Const: Negative for fatigue, weakness or headache(s) Eyes Eyes: Negative for change in vision ENT ENT: Positive for balance problems (Pt has Parkinson's but isn't unstable.); Negative for headache(s), dizziness or Nosebleed/epistaxis Cardio Chest Pain: No Palpitations: No Edema: Bilateral Resp Respiratory: Negative for SOB with activity GI GI: Positive for heartburn (Occassionally); Negative nausea, vomiting or bright, red blood in stools : Negative for hematuria Musc Musc: Positive for balance problems (Pt has Parkinson's but isn't unstable.) Neuro Neuro: Negative for dizziness, lightheadedness, syncope, headache(s) or weakness Endo Endo: Negative for fatigue Cardiology Exam Const Appearance: cooperative, healthy appearing, comfortable, no acute distress and well developed Orientation: alert, awake and oriented x3 Head Head: normal to inspection Ears: hearing grossly normal bilaterally Nose: external nose normal Face and Sinus: face symmetric Mouth: oral mucosae normal, lip normal and moist mucous membranes Eyes General: appearance normal, both eyes and all related structures Eyelids: eyelids normal Conjunctivae: conjunctivae normal Pupils: PERRL EOM: EOM intact bilaterally Neck Neck: normal visual inspection and trachea midline; Negative no JVD Carotids: Negative bruit Chest Chest inspection: normal inspection of the chest Auscultation: Bilateral: Clear to Auscultation Cardio Palpatio (more content not included)... Normal [facility] 29on 11-21-2024 29 Addended by: HERACLIO KAY on: 11/21/2024 01:04 PM Modules accepted: Orders [facility] 36on 11-21-2024 36 Name of Caller: Cyndie harris Contact Reason for Appointment: Zahra Gastelumy called at 8 today but not sure why, but if it was to confirm today's appointment, patient will be there. Office Name: neuro [facility] Office Visiton 11-21-2024 Follow-up visit [id number] Lon Dior 1945 M Date Provider Department Center 11/21/2024 [id number]-GXEDGHERACLIO KAY [facility] None Family History Problem Relation Age of Onset Heart attack Mother Colon cancer Father Aneurysm Sister Alcohol abuse Sister Cancer Brother Family Status - Relation Status Age at Mother Father Sister Sister Sister Alive Brother Maternal Grandmother Maternal Grandfather Paternal Grandmother Paternal Grandfather Level of Service:10103 AL OFFICE/OUTPATIENT ESTABLISHED LOW MDM 20 MIN Reason for Visit and Comments: Follow-up [558440] Sleeping Problem [347] Memory Loss [66] [facility] Progress Noteon 11-21-2024 Progress Note [facility] [address] [place] [address] [facility] [address] Dept: [phone] Dept Loc: [phone] Heraclio Kay MD CHIEF COMPLAINT: Chief Complaint Patient presents with Follow-up Sleeping Problem Memory Loss HISTORY OF PRESENT ILLNESS: The patient is a 78 y.o. person who returns for dizziness. He denies dizziness and denies falls. I reviewed the MRI brain and discussed cerebrovascular disease. Ask informant to rate the patient's ability using the following scoring system: Dependent= 3 Requires Assistance= 2 Has difficulty but does by self= 1 Normal= 0 Never did the activity but could do now= 0 Never did and would have difficulty now= 1 Score Writing checks, paying bills, balancing checkbook 3 Assembling tax records, business affairs, or papers 3 Shopping alone for clothes, household necessities or groceries 0 Playing a game of skill, working on a hobby 0 Heating water, making a cup of coffee turning off stove after use 0 Preparing a balanced meal 0 Keeping track of current events 0 Paying attention to, understanding, discussing TV, book, magazine 0 Remembering appointments, family occasions, holidays, medications 3 Traveling out of neighborhood, driving, arranging to take a bus 0 Total Score 9 Evaluation Sum scores (range 0-30). Cut-point of 9 (dependent in 3 or more activities) is recommended to indicate impaired function and possible cognitive impairment. He reports that he has not been wearing his mask at night. He reports that he feels that his sleep quality is good. JarekMemoip 05/27/2024 - 07/25/2024 : [birth year]24 Age: 1 years [place] [id number] [facility], [address] [facility], [address] Email: [email or web address] Compliance Report Compliance Payor Standard Usage 05/27/2024 - 07/25/2024 Usage days 3/60 days (5%) >= 4 hours 0 days (0%) < 4 hours 3 days (5%) Usage hours 2 hours 4 minutes Average usage (total days) 2 minutes Average usage (days used) 41 minutes Median usage (days used) 55 minutes Total used hours (value since last reset - 07/25/2024) 2 hours [employer] 10 AutoSet Serial number [id number] Mode AutoSet Min Pressure 4 cmH2O Max Pressure 15 cmH2O EPR Fulltime EPR level 3 Response Standard Therapy Pressure - cmH2O Median: 2.7 95th percentile: 2.8 Maximum: 4.3 Leaks - L/min Median: 0.0 95th percentile: 5.2 Maximum: 40.8 Events per hour AI: 0.3 HI: 0.0 AHI: 0.3 Apnea Index Central: 0.0 Obstructive: 0.0 Unknown: 0.3 RERA Index 0.0 Shawn-La respiration (average duration per night) 0 minutes (0%) Past Medical History: has a past medical history of GERD (gastroesophageal reflux disease), Hypertension, and Parkinson's disease (HCC). Past Surgical History: has a past surgical history that includes Skin surgery (03/2022) and Gallbladder surgery. Medications: Current Outpatient Medications: amLODIPine (Norvasc) 10 MG tablet, Take 10 mg by mouth daily., Disp: , Rfl: aspirin 81 MG EC tablet, Take 81 mg by mouth daily., Disp: , Rfl: carbidopa-levodopa (Sinemet) 25-100 MG tablet, Take 1 tablet by mouth 3 times daily., Disp: 270 tablet, Rfl: 3 losartan (Cozaar) 100 MG tablet, TAKE 1 TABLET BY MOUTH OINCE A DAY, Disp: , Rfl: metoprolol succinate XL (Toprol-XL) 50 MG 24 hr tablet, Take 50 mg by mouth daily., Disp: , Rfl: omeprazole (PriLOSEC) [address] capsule, TAKE 1 CAPSULE BY MOUTH ON THURSDAY, THURSDAY, AND THURSDAY, Disp: , Rfl: tamsulosin (Flomax) 0.4 MG 24 hr capsule, TAKE 1 CAPSULE BY MOUTH EVERY DAY AT SUPPER TIME. STOP DOXAZOSIN, Disp: , Rfl: doxazosin (Cardura) 2 MG tablet, Take 2 mg by mouth Nightly., Disp: , Rfl: Allergies: Simvastatin, Hydrochlorothiazide, and Iodine Social History: Social History Socioeconomic History Marital status: Spouse name: Not on file Number of children: Not on file Years of education: Not on file Highest education level: Not on file Occupational History Not on file Tobacco Use Smoking status: Former Types: Pipe, Cigars Smokeless tobacco: Former Substance and Sexual Activity Alcohol use: Not Currently Drug use: Never Sexual activity: Yes Partners: Female Other Topics Concern Not on file Social History Narrative Not on file Social Drivers of Health Financial Resource Strain: Not on file Food Insecurity: Not on file Transportation Needs: Not on file Physical Activity: Not on file Stress: Not on file Social Connections: Not on file Intimate Partner Violence: Not on file Housing Stability: Not on file Family History: Family History Problem Relation Name Age of Onset Heart attack Mother Colon cancer Father Aneurysm Sister Alcohol abuse Sister Cancer Brother REVIEW OF SYSTEMS: Review of Systems Constitutional: Negative for appetite change, chills, diaphoresis, fever and unexpected weight change. HENT: Negative for dental prob (more content not included)... Normal [facility] 37on 09-07-2024 37 Please check with your insurance about the Alzheimer's disease blood biomarkers. If they say the will cover it if I say it is medically necessary, then go ahead and get the blood work drawn at a [facility] lab. Normal [facility] Office Visiton 09-07-2024 Follow-up visit [id number] Lon Dior 1945 M Date Provider Department Center 09/07/2024 [id number] KAY [facility] None Family History Problem Relation Age of Onset Heart attack Mother Colon cancer Father Aneurysm Sister Alcohol abuse Sister Cancer Brother Family Status - Relation Status Age at Mother Father Sister Sister Sister Alive Brother Maternal Grandmother Maternal Grandfather Paternal Grandmother Paternal Grandfather Level of Service:17020 AL OFFICE/OUTPATIENT ESTABLISHED MOD MDM 30 MIN Reason for Visit and Comments: Follow-up [301506] Parkinson's Disease [385] Normal [facility] Progress Noteon 09-07-2024 Progress Note [facility] [address] [facility] [address] [facility] [address] Dept: [phone] Dept Loc: [phone] Heraclio Kay MD CHIEF COMPLAINT: Chief Complaint Patient presents with Follow-up Parkinson's Disease HISTORY OF PRESENT ILLNESS: The patient is a 78 y.o. person who returns for dizziness. He denies dizziness and denies falls. He has to be careful on steps/stairs. Mild tremor. He is tolerating the medicine. The patient reports excessive daytime sleepiness. He has not had the sleep apnea testing yet He is sleeping 12 hours and still needing naps. Snoring?Yes Tired? (Tired, Fatigued, or Sleepy during the daytime) Yes Observed? (Stop Breathing or Choking/Gasping during your sleep)Yes Pressure? (High blood pressure meds?) Yes Body Mass Index is 28 or greater?Yes Age greater than 50? Yes Neck size (Men >17 in, Women >16 in)Yes Gender Male?Yes STOP BANG score 8 I reviewed the MRI brain and discussed cerebrovascular disease. Ask informant to rate the patient's ability using the following scoring system: Dependent= 3 Requires Assistance= 2 Has difficulty but does by self= 1 Normal= 0 Never did the activity but could do now= 0 Never did and would have difficulty now= 1 Score Writing checks, paying bills, balancing checkbook 3 Assembling tax records, business affairs, or papers 3 Shopping alone for clothes, household necessities or groceries 0 Playing a game of skill, working on a hobby 0 Heating water, making a cup of coffee turning off stove after use 0 Preparing a balanced meal 0 Keeping track of current events 0 Paying attention to, understanding, discussing TV, book, magazine 0 Remembering appointments, family occasions, holidays, medications 3 Traveling out of neighborhood, driving, arranging to take a bus 0 Total Score 9 Evaluation Sum scores (range 0-30). Cut-point of 9 (dependent in 3 or more activities) is recommended to indicate impaired function and possible cognitive impairment. Past Medical History: has a past medical history of GERD (gastroesophageal reflux disease), Hypertension, and Parkinson's disease (HCC). Past Surgical History: has a past surgical history that includes Skin surgery (03/2022) and Gallbladder surgery. Medications: Current Outpatient Medications: amLODIPine (Norvasc) 10 MG tablet, Take 10 mg by mouth daily., Disp: , Rfl: aspirin 81 MG EC tablet, Take 81 mg by mouth daily., Disp: , Rfl: carbidopa-levodopa (Sinemet) 25-100 MG tablet, Take 1 tablet by mouth 3 times daily., Disp: 270 tablet, Rfl: 3 losartan (Cozaar) 100 MG tablet, TAKE 1 TABLET BY MOUTH OINCE A DAY, Disp: , Rfl: metoprolol succinate XL (Toprol-XL) 50 MG 24 hr tablet, Take 50 mg by mouth daily., Disp: , Rfl: omeprazole (PriLOSEC) [address] capsule, TAKE 1 CAPSULE BY MOUTH ON THURSDAY, THURSDAY, AND THURSDAY, Disp: , Rfl: tamsulosin (Flomax) 0.4 MG 24 hr capsule, TAKE 1 CAPSULE BY MOUTH EVERY DAY AT SUPPER TIME. STOP DOXAZOSIN, Disp: , Rfl: doxazosin (Cardura) 2 MG tablet, Take 2 mg by mouth Nightly., Disp: , Rfl: Allergies: Simvastatin, Hydrochlorothiazide, and Iodine Social History: Social History Socioeconomic History Marital status: Spouse name: Not on file Number of children: Not on file Years of education: Not on file Highest education level: Not on file Occupational History Not on file Tobacco Use Smoking status: Former Types: Pipe, Cigars Smokeless tobacco: Former Substance and Sexual Activity Alcohol use: Not Currently Drug use: Never Sexual activity: Yes Partners: Female Other Topics Concern Not on file Social History Narrative Not on file Social Drivers of Health Financial Resource Strain: Not on file Food Insecurity: Not on file Transportation Needs: Not on file Physical Activity: Not on file Stress: Not on file Social Connections: Not on file Intimate Partner Violence: Not on file Housing Stability: Not on file Family History: Family History Problem Relation Name Age of Onset Heart attack Mother Colon cancer Father Aneurysm Sister Alcohol abuse Sister Cancer Brother REVIEW OF SYSTEMS: Review of Systems Constitutional: Negative for appetite change, chills, diaphoresis, fever and unexpected weight change. HENT: Negative for dental problem and mouth sores. Eyes: Negative for discharge and itching. Respiratory: Negative for chest tightness. Cardiovascular: Negative for chest pain and leg swelling. Gastrointestinal: Negative for rectal pain and vomiting. Endocrine: Negative for polydipsia, polyphagia and polyuria. Genitourinary: Negative for decreased urine volume, flank pain and genital sores. Musculoskeletal: Negative for arthralgias. Skin: Negative for color change. Allergic/Immunologic: Negative for food allergies and immunocompromised state. Neurological: Positive for tremors. M (more content not included)... Normal [facility] 36on 07-08-2024 36 Hello! Spoke with patients Zahra, they would like to cancel patients CPAP test that is scheduled for 07/16/24 at [place] and they do not wish to reschedule at this time. Just wanted to relay the information. Thank you [facility] Sleep Studies Normal [facility] 36on 07-06-2024 36 Call to patient's spouse. Spouse notified and verbalized understanding. Normal [facility] 36 I did not order oxygen as we do not typically give oxygen with the PAP therapy. We can test his oxygen with the mask on after he has been wearing it through the night and see if he needs additional oxygen but most patients do not need oxygen with PAP therapy. [facility] 36 Name of caller: Cyndie harris Contact phone number: [phone] Relationship to Patient: spouse/SO Provider: Dr. Kay Practice: [facility] Chief Complaint/Reason for Call: Zahra states she was advised by [facility] that they don't provide oxygen for the test. Zahra states she wants to make sure that the order for the patient was with oxygen. Please review. Best time of day caller can be reached: any Patient advised that office/PCP has 24-48 business hours to return their call: [place] [address] Order faxed [place] [address]on 07-05-2024 36 Fax the order to [facility] [phone] [place] [address] [facility] is out of network with patient's insurance Where would you like his CPAP order be sent? [place] [address] Faxed over [place] [address] Please fax the CPAP order to [facility] [place] with his HOME SLEEP TEST. Tell the sleep lab to cancel the PAP titration study as we are going to try auto-PAP as the patient is anxious about being in the sleep lab. [place] [address]on 06-20-2024 36 Spoke with zahra and answered all questions [place] [address] Name of caller: Cyndie harris Contact phone number: [phone] Relationship to Patient: spouse/SO Provider: Dr. Kay Practice: Neurology Chief Complaint/Reason for Call: Zahra called advising she was returning a voicemail. CAC read per verbatim notes from Dr. Kay and Zahra understood. Zahra advised if machine will be delivered to home or will they need to pick it up at the clinic. Please call Zahra back and advise. Best time of day caller can be reached: any Patient advised that office/PCP has 24-48 business hours to return their call: Yes [place] [address] Lm for patient to call the office back, please relay providers message. [place] [address]on 06-19-2024 36 Please tell him that his home sleep test did show obstructive sleep apnea with severe drops in oxygen. I will order a CPAP titration to treat the sleep apnea. Normal [facility] 36on 06-13-2024 36 patient has been notified of providers message. Normal [facility] 36on 06-10-2024 36 Tell him that he onl y slept 2.5 hours during the sleep study and we need at least four hours for a reliable result. I am going to order a home sleep test to check for sleep apnea as he will likely sleep longer at home. He did not have any abnormal behaviors in his sleep or jerking of his legs in the lab. Normal [facility] MR Brain WO contraston 05-20 No acute intracrania l abnormality. Nonspecific T2/FLAIR hyperintensity of the ventral medulla. Differential considerations may include sequelae of hypertrophic olivary degeneration, demyelination, ischemic changes among other less likely etiologies such as vascular structure. Neoplasm is considered unlikely. Correlate with history and symptoms. Further evaluation with contrast-enhanced study may be considered. Shireen rest ischemia and generalized parenchymal volume loss. Report Dictated on Electronically Signed By: Chan Egan MD Electronically Signed Date/Time: 05/20/2024 12:15 PM [facility] RADIOLOGY SYSTEM Patient Name: LON DIOR : 1945 Exam Date/Time: 05/20/2024 09:10 Procedure: MR BRAIN WO CONTRAST Ordering Provider: KAY JAMES Reason For Exam: Mental status change, unknown cause EXAMINATION: MR BRAIN WO CONTRAST HISTORY: Mild cognitive impairment and memory loss. Vertigo. TECHNIQUE: Multiplanar, multisequence MRI of the brain was performed without contrast. COMPARISON: None. RESULT: Acute Change: Diffusion-weighted hyperintensity of the ventral medulla without ADC hypointensity is probably artifactual related to T2 shine through. No true restricted diffusion to suggest an acute infarct. Hemorrhage: No evidence of prior parenchymal hemorrhage on the gradient echo images. Mass Lesion/ Mass Effect: No evidence of an intracranial mass or extra-axial fluid collection. No significant mass effect. Chronic Change: Scattered patchy and confluent areas of increased T2 and FLAIR signal are present in the supratentorial white matter which is nonspecific but likely represents chronic microvascular ischemia. Prominent perivascular spaces of the basal ganglia (Etat crible). Parenchyma: 0.9 x 0.5 cm (TV x AP) T2/FLAIR hyperintensity of the ventral medulla in the location of the pyramids and olivary nuclei is nonspecific. No significant volume expansion or volume loss. Unremarkable appearance of the bilateral dentate nuclei and red nuclei. There is moderate generalized parenchymal volume loss. Ventricles: Mild ventriculomegaly corresponds to the degree of parenchymal volume loss. Skull Base: Hypothalamic and pituitary region are grossly normal. Craniocervical junction is normal. No significant marrow replacement process. Vasculature: Major intracranial arterial structures, and dural venous sinuses show typical flow void, suggesting patency by spin echo criteria. Other: Mucosal thickening, hyperostosis and opacification of the left maxillary sinus. The visualized paranasal sinuses and mastoid air cells are clear. The orbits and extracranial soft tissues are unremarkable. [facility] RADIOLOGY SYSTEM Chan Egan MD - 05/20/2024 [facility] 1945 [id number] Exam Date/Time: 05/20/2024 09:10 Procedure: MR BRAIN WO CONTRAST Ordering Provider: KAY JAMES Reason For Exam: Mental status change, unknown cause EXAMINATION: MR BRAIN WO CONTRAST HISTORY: Mild cognitive impairment and memory loss. Vertigo. TECHNIQUE: Multiplanar, multisequence MRI of the brain was performed without contrast. COMPARISON: None. RESULT: Acute Change: Diffusion-weighted hyperintensity of the ventral medulla without ADC hypointensity is probably artifactual related to T2 shine through. No true restricted diffusion to suggest an acute infarct. Hemorrhage: No evidence of prior parenchymal hemorrhage on the gradient echo images. Mass Lesion/ Mass Effect: No evidence of an intracranial mass or extra-axial fluid collection. No significant mass effect. Chronic Change: Scattered patchy and confluent areas of increased T2 and FLAIR signal are present in the supratentorial white matter which is nonspecific but likely represents chronic microvascular ischemia. Prominent perivascular spaces of the basal ganglia (Etat crible). Parenchyma: 0.9 x 0.5 cm (TV x AP) T2/FLAIR hyperintensity of the ventral medulla in the location of the pyramids and olivary nuclei is nonspecific. No significant volume expansion or volume loss. Unremarkable appearance of the bilateral dentate nuclei and red nuclei. There is moderate generalized parenchymal volume loss. Ventricles: Mild ventriculomegaly corresponds to the degree of parenchymal volume loss. Skull Base: Hypothalamic and pituitary region are grossly normal. Craniocervical junction is normal. No significant marrow replacement process. Vasculature: Major intracranial arterial structures, and dural venous sinuses show typical flow void, suggesting patency by spin echo criteria. Other: Mucosal thickening, hyperostosis and opacification of the left maxillary sinus. The visualized paranasal sinuses and mastoid air cells are clear. The orbits and extracranial soft tissues are unremarkable. IMPRESSION: No acute intracranial abnormality. Nonspecific T2/FLAIR hyperintensity of the ventral medulla. Differential considerations may include sequelae of hypertrophic olivary degeneration, demyelination, ischemic changes among other less likely etiologies such as vascular structure. Neoplasm is considered unlikely. Correlate with history and symptoms. Further evaluation with contrast-enhanced study may be considered. Shireen rest ischemia and generalized parenchymal volume loss. Report Dictated on Electronically Signed By: Chan Egan MD Electronically Signed Date/Time: 05/20/2024 12:15 PM EST [facility] Radiology Study observation (narrative) [facility] MR Brain WO contrastOrdered By: Chan Egan on 05-20-2024 [facility] Work Phone: Office Visiton 05-18-2024 Follow-up visit [id number] Lon Dior 1945 M Date Provider Department Center 05/18/2024 [id number] KAY [facility] None Family History Problem Relation Age of Onset Heart attack Mother Colon cancer Father Aneurysm Sister Alcohol abuse Sister Cancer Brother Family Status - Relation Status Age at Mother Father Sister Sister Sister Alive Brother Maternal Grandmother Maternal Grandfather Paternal Grandmother Paternal Grandfather Level of Service:53535 AL OFFICE/OUTPATIENT ESTABLISHED MOD MDM 30 MIN Reason for Visit and Comments: Follow-up [763177] Memory Loss [66] Normal [facility] Progress Noteon 05-18-2024 Progress Note [facility] [address] [place] [address] [facility] [address] Dept: [phone] Dept Loc: [phone] Heraclio Kay MD CHIEF COMPLAINT: Chief Complaint Patient presents with Follow-up Memory Loss HISTORY OF PRESENT ILLNESS: The patient is a 78 y.o. person who returns for dizziness. He denies dizziness and denies falls. He has to be careful on steps/stairs. The patient reports excessive daytime sleepiness. He has not had the sleep apnea testing yet He is sleeping 12 hours and still needing naps. Snoring?Yes Tired? (Tired, Fatigued, or Sleepy during the daytime) Yes Observed? (Stop Breathing or Choking/Gasping during your sleep)Yes Pressure? (High blood pressure meds?) Yes Body Mass Index is 28 or greater?Yes Age greater than 50? Yes Neck size (Men >17 in, Women >16 in)Yes Gender Male?Yes STOP BANG score 8 No hallucinations. Past Medical History: has a past medical history of GERD (gastroesophageal reflux disease), Hypertension, and Parkinson's disease (HCC). Past Surgical History: has a past surgical history that includes Skin surgery (03/2022) and Gallbladder surgery. Medications: Current Outpatient Medications: amLODIPine (Norvasc) 10 MG tablet, Take 10 mg by mouth daily., Disp: , Rfl: aspirin 81 MG EC tablet, Take 81 mg by mouth daily., Disp: , Rfl: carbidopa-levodopa (Sinemet) 25-100 MG tablet, Take 1 tablet by mouth 3 times daily., Disp: 270 tablet, Rfl: 3 doxazosin (Cardura) 2 MG tablet, Take 2 mg by mouth Nightly., Disp: , Rfl: losartan (Cozaar) 100 MG tablet, TAKE 1 TABLET BY MOUTH OINCE A DAY, Disp: , Rfl: metoprolol succinate XL (Toprol-XL) 50 MG 24 hr tablet, Take 50 mg by mouth daily., Disp: , Rfl: omeprazole (PriLOSEC) [address] capsule, TAKE 1 CAPSULE BY MOUTH ON THURSDAY, THURSDAY, AND THURSDAY, Disp: , Rfl: tamsulosin (Flomax) 0.4 MG 24 hr capsule, TAKE 1 CAPSULE BY MOUTH EVERY DAY AT SUPPER TIME. STOP DOXAZOSIN, Disp: , Rfl: Allergies: Simvastatin, Hydrochlorothiazide, and Iodine Social History: Social History Socioeconomic History Marital status: Spouse name: Not on file Number of children: Not on file Years of education: Not on file Highest education level: Not on file Occupational History Not on file Tobacco Use Smoking status: Former Types: Pipe, Cigars Smokeless tobacco: Former Substance and Sexual Activity Alcohol use: Not Currently Drug use: Never Sexual activity: Yes Partners: Female Other Topics Concern Not on file Social History Narrative Not on file Social Drivers of Health Financial Resource Strain: Not on file Food Insecurity: Not on file Transportation Needs: Not on file Physical Activity: Not on file Stress: Not on file Social Connections: Not on file Intimate Partner Violence: Not on file Housing Stability: Not on file Family History: Family History Problem Relation Name Age of Onset Heart attack Mother Colon cancer Father Aneurysm Sister Alcohol abuse Sister Cancer Brother REVIEW OF SYSTEMS: Review of Systems Constitutional: Negative for appetite change, chills, diaphoresis, fever and unexpected weight change. HENT: Negative for dental problem and mouth sores. Eyes: Negative for discharge and itching. Respiratory: Negative for chest tightness. Cardiovascular: Negative for chest pain and leg swelling. Gastrointestinal: Negative for rectal pain and vomiting. Endocrine: Negative for polydipsia, polyphagia and polyuria. Genitourinary: Negative for decreased urine volume, flank pain and genital sores. Musculoskeletal: Negative for arthralgias. Skin: Negative for color change. Allergic/Immunologic: Negative for food allergies and immunocompromised state. Neurological: Positive for tremors. Memory loss Hematological: Negative for adenopathy. Does not bruise/bleed easily. Psychiatric/Behaviora l: Negative for agitation, behavioral problems, decreased concentration, sleep disturbance and suicidal ideas. PHYSICAL EXAM: Vitals: BP (!) 152/83 (BP Location: Left arm, Patient Position: Sitting, BP Cuff Size: Adult) Pulse 69 Ht 5' 9" (1.753 m) Wt 221 lb 10.1 oz (101 kg) BMI 32.73 kg/m? General Appearance: Patient is in no apparent distress. Head is normocephalic, atraumatic Cardiovascular: Regular rate and rhythm. No heart murmurs. No carotid bruit Neurologic:MMSE 23/30 Mentation: Alert and oriented x 3 to person, place and time. Speech and Language: Speech and language normal Concentration and Attention: Concentration normal Memory: Memory 3/3 mimmed, 1/3 short Fund of Knowledge: Fund of knowledge normal Cranial Nerves: II, III, IV, V, , VII, VIII, IX, X, XI, XII tested and were intact including fundoscopic exam (optic discs) and visual field to confrontation. Motor: Strength:Strength 5 out of 5 with normal tone Alternating Movements: Mild and still (more content not included)... Normal [facility] Progress Noteon 02-16-2024 Progress Note [facility] [address] [facility] [address] Dept: [phone] Dept Loc: [phone] Patient was seen today via Telehealth by agreement and consent. I used the following Telehealth technology: Audio and video capabilities. Patient location: Patient Location: Home. This patient encounter is appropriate and reasonable under the circumstances: too sick to leave home . The patient has been advised of the potential risks and limitations of this mode of treatment (including but not limited to the absence of in-person examination) and has agreed to be treated in a remote fashion in spite of them. Any and all of the patient's/patient's family's questions on this issue have been answered and I have made no promises or guarantees to the patient. The patient has also been advised to contact this office for worsening conditions or problems, and seek emergency medical treatment and/or call 911 if the patient deems either necessary. The patient stated that they are currently in the [facility]. If the patient is a minor, permission has been obtained by the parent or guardian for the patient to receive medical care at this visit. Visit type: Established patient Reason for Visit: Follow-up Assessment and Plan 1. Parkinson's disease without dyskinesia or fluctuating manifestations (HCC) 2. Obstructive sleep apnea 3. Vertigo - External referral to Physical Therapy No follow-ups on file. Subjective HPI: The patient is a 78 y.o. person who returns early for dizziness. He reports that he has had this before and Dr. Burkett, ENT in [place], would perform Jarod maneuvers to treat this. He reports that his tremor in his left hand dominant hand. He has not had another fall since the last time. His reports that he is doing better with caridopa-levodopa. The patient reports excessive daytime sleepiness. He has not had the sleep apnea testing yet He is sleeping 12 hours and still needing. Snoring?Yes Tired? (Tired, Fatigued, or Sleepy during the daytime) Yes Observed? (Stop Breathing or Choking/Gasping during your sleep)No Pressure? (High blood pressure meds?) Yes Body Mass Index is 28 or greater?Yes Age greater than 50? Yes Neck size (Men >17 in, Women >16 in)Yes Gender Male?Yes STOP BANG score 7 REVIEW OF SYSTEMS: Review of Systems Constitutional: Negative for appetite change, chills, diaphoresis, fever and unexpected weight change. HENT: Negative for dental problem and mouth sores. Eyes: Negative for discharge and itching. Respiratory: Negative for chest tightness. Cardiovascular: Negative for chest pain and leg swelling. Gastrointestinal: Negative for rectal pain and vomiting. Endocrine: Negative for polydipsia, polyphagia and polyuria. Genitourinary: Negative for decreased urine volume, flank pain and genital sores. Musculoskeletal: Negative for arthralgias. Skin: Negative for color change. Allergic/Immunologic: Negative for food allergies and immunocompromised state. Neurological: Positive for dizziness and tremors. Hematological: Negative for adenopathy. Does not bruise/bleed easily. Psychiatric/Behaviora l: Negative for agitation, behavioral problems, decreased concentration, sleep disturbance and suicidal ideas. Allergies Allergen Reactions Simvastatin Other reaction(s): elevated liver enzymes, Very elevated liver enzymes Hydrochlorothiazide Other reaction(s): fatigue Iodine Other reaction(s): life threatening, pt not allergic to iodine, but brother is. Current Outpatient Medications: amLODIPine (Norvasc) 10 MG tablet, Take 10 mg by mouth daily., Disp: , Rfl: aspirin 81 MG EC tablet, Take 81 mg by mouth daily., Disp: , Rfl: carbidopa-levodopa (Sinemet) 25-100 MG tablet, Take 1 tablet by mouth 3 times daily., Disp: 270 tablet, Rfl: 3 losartan (Cozaar) 100 MG tablet, TAKE 1 TABLET BY MOUTH OINCE A DAY, Disp: , Rfl: metoprolol succinate XL (Toprol-XL) 50 MG 24 hr tablet, Take 50 mg by mouth daily., Disp: , Rfl: omeprazole (PriLOSEC) [address] capsule, TAKE 1 CAPSULE BY MOUTH ON THURSDAY, THURSDAY, AND THURSDAY, Disp: , Rfl: tamsulosin (Flomax) 0.4 MG 24 hr capsule, TAKE 1 CAPSULE BY MOUTH EVERY DAY AT SUPPER TIME. STOP DOXAZOSIN, Disp: , Rfl: doxazosin (Cardura) 2 MG tablet, Take 2 mg by mouth Nightly., Disp: , Rfl: Past Medical History: Diagnosis Date GERD (gastroesophageal reflux disease) Hypertension Parkinson's disease (HCC) Social History Tobacco Use Smoking status: Former Types: Pipe, Cigars Smokeless tobacco: Former Substance Use Topics Alcohol use: Not Currently Past Surgical History: Procedure Laterality Date GALLBLADDER SURGERY SKIN SURGERY 03/2022 Family History Problem Relation Name Age of Onset Heart attack Mother Colon cancer Father Aneurysm Sister Alcohol abuse Sister Cancer Brother Objective Vitals (more content not included)... [facility] 36on 02-15-2024 36 Patient has been scheduled [facility] 36 Add him on as a virtual appt tomorrow at 320 pm [place] [id number] 02-14-2024 36 S: Patient's DIL adin and Zahra spoke with [facility] nurse regarding vertigo B: Onset of symptoms/concern Last OV 12/11/23 Next OV 03/25/24 A: C/O moderate vertigo (spinning of room) that started this morning. Reports prior history of physcial therapy treatment >10 yrs ago. He is currently out of state with family.. Denies any new weakness, dizziness, numbness, change in speech or vision. R: Recommend [facility] today. Also encourage to follow up with PCP. Family agreeable to [facility] disposition out of state. Will call back if needing appointment for later in week. Caller understands care advice. 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, [address] Absolute Neut 2.1 X10 3/uL Normal 2.0-7.7 [facility] Comment on above: Performed By: #### L 100.0100, L500.4100, L501.9520, L501.9985, L506.1000, L500.4050 #### [facility] [address] [place], [address] Basophils/100 WBC (Bld) 0.9 % Normal 0-1 [facility] Comment on above: Performed By: #### L 100.0100, L500.4100, L501.9520, L501.9985, L506.1000, L500.4050 #### [facility] [address] [place], [address] Eosinophils/100 WBC (Bld) 7.8 % High 0-5 [facility] Comment on above: Performed By: #### L 100.0100, L500.4100, L501.9520, L501.9985, L506.1000, L500.4050 #### [facility] [address] [place], [address] Erythrocyte distribution width (RBC) [Ratio] 12.0 % Normal 11.6-14.6 [facility] Comment on above: Performed By: #### L 100.0100, L500.4100, L501.9520, L501.9985, L506.1000, L500.4050 #### [facility] [address] [place], [address] Hematocrit (Bld) [Volume fraction] 47.8 % Normal 40-54 [facility] Comment on above: Performed By: #### L 100.0100, L500.4100, L501.9520, L501.9985, L506.1000, L500.4050 #### [facility] [address] [place], [address] Hemoglobin (Bld) [Mass/Vol] 15.9 g/dL Normal 13.0-16.5 [facility] Comment on above: Performed By: #### L 100.0100, L500.4100, L501.9520, L501.9985, L506.1000, L500.4050 #### [facility] [address] [place], [address] IG% 1.400 High 0.0-0.9 [facility] Comment on above: Result Comment: IG% - Immature Granulocytes (promyelocytes, myelocytes and metamyelocytes) > 1% indicates that a LEFT SHIFT is Present. Performed By: #### L 100.0100, L500.4100, L501.9520, L501.9985, L506.1000, L500.4050 #### [facility] [address] [facility] [place], [address] Lymphocytes/100 WBC (Bld) 46.4 % High 19-41 [facility] Comment on above: Performed By: #### L 100.0100, L500.4100, L501.9520, L501.9985, L506.1000, L500.4050 #### [facility] [address] [place], [address] MCH (RBC) [Entitic mass] 31.1 pg Normal 27.0-32.0 [facility] Comment on above: Performed By: #### L 100.0100, L500.4100, L501.9520, L501.9985, L506.1000, L500.4050 #### [facility] [address] [facility] [place], [address] MCHC (RBC) [Mass/Vol] 33.3 g/dL Normal 32-36 [facility] Comment on above: Performed By: #### L 100.0100, L500.4100, L501.9520, L501.9985, L506.1000, L500.4050 #### [facility] [address] [place], [address] MCV (RBC) [Entitic vol] 93.5 fL Normal 80-94 [facility] Comment on above: Performed By: #### L 100.0100, L500.4100, L501.9520, L501.9985, L506.1000, L500.4050 #### [facility] [address] [place], [address] Monocytes/100 WBC (Bld) 8.3 % Normal 0-10 [facility] Comment on above: Performed By: #### L 100.0100, L500.4100, L501.9520, L501.9985, L506.1000, L500.4050 #### [facility] [address] [place], [address] Neutrophils/100 WBC (Bld) 35.2 % Low 47-70 [facility] Comment on above: Performed By: #### L 100.0100, L500.4100, L501.9520, L501.9985, L506.1000, L500.4050 #### [facility] [address] [place], [address] Nucleated RBC (Bld) [#/Vol] 0 10*3/uL Normal 0-5 [facility] Comment on above: Performed By: #### L 100.0100, L500.4100, L501.9520, L501.9985, L506.1000, L500.4050 #### [facility] [address] [place], [address] Platelet mean volume (Bld) [Entitic vol] 9.8 fL Normal 6.2-12.0 [facility] Comment on above: Performed By: #### L 100.0100, L500.4100, L501.9520, L501.9985, L506.1000, L500.4050 #### [facility] [address] [place], [address] Platelets (Bld) [#/Vol] 108 10*3/uL Low 150-450 [facility] Comment on above: Performed By: #### L 100.0100, L500.4100, L501.9520, L501.9985, L506.1000, L500.4050 #### [facility] [address] [place], [address] RBC (Bld) [#/Vol] 5.11 10*6/uL Normal 4.6-6.2 [facility] Comment on above: Performed By: #### L 100.0100, L500.4100, L501.9520, L501.9985, L506.1000, L500.4050 #### [facility] [address] [place], [address] RDW SD 41.6 fl Normal 35.1-43.9 [facility] Comment on above: Performed By: #### L 100.0100, L500.4100, L501.9520, L501.9985, L506.1000, L500.4050 #### [facility] [address] [place], [address] WBC (Bld) [#/Vol] 5.8 10*3/uL Normal 4.4-11.0 [facility] Comment on above: Performed By: #### L 100.0100, L500.4100, L501.9520, L501.9985, L506.1000, L500.4050 #### [facility] [address] [place], [address] Comprehensive Metabolic Prof [facility] 02-09-2024 Albumin [Mass/Vol] 4.1 g/dL Normal 3.2-5.0 [facility] Comment on above: Performed By: #### L 100.0100, L500.4100, L501.9520, L501.9985, L506.1000, L500.4050 #### [facility] [address] [place], [address] Albumin/Globulin [Mass ratio] 1.3 {ratio} Normal 0.9-2.4 [facility] Comment on above: Performed By: #### L 100.0100, L500.4100, L501.9520, L501.9985, L506.1000, L500.4050 #### [facility] [address] [place], [address] ALK P 53 U/L Normal 45-117 [facility] Comment on above: Performed By: #### L 100.0100, L500.4100, L501.9520, L501.9985, L506.1000, L500.4050 #### [facility] [address] [place], [address] ALT [Catalytic activity/Vol] 17 U/L Normal 16-61 [facility] Comment on above: Performed By: #### L 100.0100, L500.4100, L501.9520, L501.9985, L506.1000, L500.4050 #### [facility] [address] [place], [address] AST [Catalytic activity/Vol] 33 U/L Normal 15-37 [facility] Comment on above: Performed By: #### L 100.0100, L500.4100, L501.9520, L501.9985, L506.1000, L500.4050 #### [facility] [address] [place], [address] Bilirubin [Mass/Vol] 0.70 mg/dL Normal 0.20-1.00 [facility] Comment on above: Result Comment: For patients on eltrombopag therapy, use of Dimension [place] TBIL is not recommended. Performed By: #### L 100.0100, L500.4100, L501.9520, L501.9985, L506.1000, L500.4050 #### [facility] [address] [place], [address] BUN/CRE 18.2 RATIO Normal 10-20 [facility] Comment on above: Performed By: #### L 100.0100, L500.4100, L501.9520, L501.9985, L506.1000, L500.4050 #### [facility] [address] [place], [address] CA,Total 8.8 mg/dL Normal 8.5-10.1 [facility] Comment on above: Performed By: #### L 100.0100, L500.4100, L501.9520, L501.9985, L506.1000, L500.4050 #### [facility] [address] [place], [address] Chloride [Moles/Vol] 111 mmol/L High 98-107 [facility] Comment on above: Performed By: #### L 100.0100, L500.4100, L501.9520, L501.9985, L506.1000, L500.4050 #### [facility] [address] [place], [address] CO2 [Moles/Vol] 25.0 mmol/L Normal 21.0-32.0 [facility] Comment on above: Performed By: #### L 100.0100, L500.4100, L501.9520, L501.9985, L506.1000, L500.4050 #### [facility] [address] [place], [address] Creatinine [Mass/Vol] 1.21 mg/dL Normal 0.70-1.30 [facility] Comment on above: Result Comment: The validity of the calculated GFR GFRAA in patients over 70 years has not been determined. Clinical correlation is essential. Performed By: #### L 100.0100, L500.4100, L501.9520, L501.9985, L506.1000, L500.4050 #### [facility] [address] [place], [address] EST GFR - AA 74 mL/min Normal >60 [facility] Comment on above: Result Comment: Afri can Swiss GFR Calc Performed By: #### L 100.0100, L500.4100, L501.9520, L501.9985, L506.1000, L500.4050 #### [facility] [address] [place], [address] GAP 6 Normal 5-15 [facility] Comment on above: Performed By: #### L 100.0100, L500.4100, L501.9520, L501.9985, L506.1000, L500.4050 #### [facility] [address] [place], [address] GFR/1.73 sq M.predicted among non-blacks MDRD (S/P/Bld) [Vol rate/Area] 61 mL/min/{1.73_m2} Normal >60 [facility] Comment on above: Result Comment: Non- GFR Calc Performed By: #### L 100.0100, L500.4100, L501.9520, L501.9985, L506.1000, L500.4050 #### [facility] [address] [place], [address] Globulin (S) [Mass/Vol] 3.1 g/dL Normal 2.2-4.2 [facility] Comment on above: Performed By: #### L 100.0100, L500.4100, L501.9520, L501.9985, L506.1000, L500.4050 #### [facility] [address] [place], [address] Glucose [Mass/Vol] 136 mg/dL High 74-106 [facility] Comment on above: Result Comment: Fast ing Glucose result greater than or equal to 126 mg/dL suggests DIABETES MELLITUS per A.D.A. criteria. Performed By: #### L 100.0100, L500.4100, L501.9520, L501.9985, L506.1000, L500.4050 #### [facility] [address] [place], [address] Potassium [Moles/Vol] 4.3 mmol/L Normal 3.5-5.1 [facility] Comment on above: Performed By: #### L 100.0100, L500.4100, L501.9520, L501.9985, L506.1000, L500.4050 #### [facility] [address] [place], [address] Sodium [Moles/Vol] 142 mmol/L Normal 136-145 [facility] Comment on above: Performed By: #### L 100.0100, L500.4100, L501.9520, L501.9985, L506.1000, L500.4050 #### [facility] [address] [place], [address] T PROT 7.2 g/dL Normal 6.4-8.2 [facility] Comment on above: Performed By: #### L 100.0100, L500.4100, L501.9520, L501.9985, L506.1000, L500.4050 #### [facility] [address] [place], [address] Urea nitrogen [Mass/Vol] 22 mg/dL High 7-18 [facility] Comment on above: Performed By: #### L 100.0100, L500.4100, L501.9520, L501.9985, L506.1000, L500.4050 #### [facility] [address] [place], [place], [address] Hemoglobin A1con 02-09-2024 HbA1c (Bld) [Mass fraction] 5.6 % Normal 3.8-5.6 [facility] Comment on above: Order Comment: ADD O N FROM TODAY---H162R Result Comment: Norm al < 5.7 % Prediabetic 5.7 - 6.4 % Diabetic >or= 6.5 % Please note range changes. Performed By: #### L 100.0100, L500.4100, L501.9520, L501.9985, L506.1000, L500.4050 #### [facility] [address] [place], [address] Lipid Profileon 02-09-2024 Cholesterol [Mass/Vol] 183 mg/dL Normal 200 [facility] Comment on above: Result Comment: <200 mg/dL Desirable 200-240 mg/dL Borderline >240 mg/dL High Risk Performed By: #### L 100.0100, L500.4100, L501.9520, L501.9985, L506.1000, L500.4050 #### [facility] [address] [place], [place], [address] Cholesterol in HDL [Mass/Vol] 43 mg/dL Normal [facility] Comment on above: Result Comment: The drugs N-Acetylcysteine and Metamizole may falsely depress this assay. Reference Range HDL <40 mg/dL Low HDL Cholesterol HDL >or= 60 mg/dL High HDL Cholesterol Performed By: #### L 100.0100, L500.4100, L501.9520, L501.9985, L506.1000, L500.4050 #### [facility] [address] [place], [address] Cholesterol in LDL [Mass/Vol] 90 mg/dL Normal 0-130 [facility] Comment on above: Performed By: #### L 100.0100, L500.4100, L501.9520, L501.9985, L506.1000, L500.4050 #### [facility] [address] [place], [address] Cholesterol in VLDL [Mass/Vol] 50 mg/dL High 5-40 [facility] Comment on above: Performed By: #### L 100.0100, L500.4100, L501.9520, L501.9985, L506.1000, L500.4050 #### [facility] [address] [place], [address] Triglyceride [Mass/Vol] 249 mg/dL High [facility] Comment on above: Result Comment: The drugs N-Acetylcysteine and Metamizole may falsely depress this assay. Serum Triglycerides Reference Interval Normal <150 mg/dL Borderline high 150 - 199 mg/dL High 200 - 499 mg/dL Very High > or = 500 mg/dL Performed By: #### L 100.0100, L500.4100, L501.9520, L501.9985, L506.1000, L500.4050 #### [facility] [address] [place], [address] Thyroid Stim Hormone (TSH)on 02-09-2024 TSH 2.300 uIU/mL Normal 0.358-3.740 [facility] Comment on above: Performed By: #### L 100.0100, L500.4100, L501.9520, L501.9985, L506.1000, L500.4050 #### [facility] [address] [place], [address] Vitamin D,25 Hydroxyon 02-08 Vitamin D 25-OH 13.3 ng/mL Normal [facility] Comment on above: Result Comment: Leydi min D 25(OH) Status Range Deficiency <20 ng/mL (50nmol/L) Insufficiency 20 - 30 ng/mL (50 - 75 nmol/L) Sufficiency 30 - 100 ng/mL (75 - 250 nmol/L) Toxicity >100 ng/mL (>250 nmol/L) Performed By: #### L 100.0100, L500.4100, L501.9520, L501.9985, L506.1000, L500.4050 #### [facility] [address] [place], [address] Office Visiton 12-11-2023 Follow-up visit [id number] Lon Dior 1945 M Date Provider Department Center 12/11/2023 [id number]-PQAQLHERACLIO KAY [facility] None Family History Problem Relation Age of Onset Heart attack Mother Colon cancer Father Aneurysm Sister Alcohol abuse Sister Cancer Brother Family Status - Relation Status Age at Mother Father Sister Sister Sister Alive Brother Maternal Grandmother Maternal Grandfather Paternal Grandmother Paternal Grandfather Level of Service:56929 AL OFFICE/OUTPATIENT ESTABLISHED MOD MDM 30 MIN Reason for Visit and Comments: Follow-up [795559] Parkinson's Disease [385] [facility] PATINSon 12-11-2023 PATINS Please consider trying these exercise classes: [facility] and [employer] Taking Control by Optimizing mobility with Total Parkinson?s @ 2:30 pm [place] [address] [place] [address] Click here for details [facility] [place] Parkinsons Plus Exercise Class 12-12:45 pm Wednesdays [facility] [address] Contact [phone] [facility] Parkinson's [facility] [place] Parkinsons Exercise Class 1:00 -1:[address] [place] [address] Contact [phone] [facility] Parkinson's Schedule Parkinson Exercise Group - [place] Mondays 1-2 pm and 2-3pm [facility] [address] [facility] [address]. enter at event center not main building on [address] and ask for Ines [phone] [facility] Parkinson's Schedule Parkinsons Fitness and Wellness Class 2:30 pm - 3:30 pm [facility] In assisted Living @ [address] [facility] [address] Contact [phone] [facility] Parkinson's [facility] Parkinson?s Network present Move with Me; 1st and 2nd Brandon of each month 11-12 pm [facility]?, [address] Contact hSai Souza [phone] [email or web address] With Me [facility] Parkinson's Schedule [facility] Event Center Delay the Disease Exercise Class Mondays 1pm - [address] pm [address] [place] [address] Contact [phone] [facility] Parkinson's [facility] Event Center Delay the Disease Exercise class 2:oo-3:00pm [address] [place] [address] Contact [phone] [facility] Parkinson's Schedule Move and Relax and Thursday of each month 10-11 pm [facility] Caf?, [address] Contact Shai Souza [phone] [email or web address] Normal [facility] Progress Noteon 12-11-2023 Progress Note [facility] NEUROSCIENCE [address] [facility] [address] [facility] [address] Dept: [phone] Dept Loc: [phone] Heraclio Kay MD CHIEF COMPLAINT: Chief Complaint Patient presents with Follow-up Parkinson's Disease HISTORY OF PRESENT ILLNESS: The patient is a 78 y.o. person who returns for his tremor in his left hand dominant hand. He has had another fall since the last time. He got up without trouble but had tripped over a small uneven survace from a garage to a driveway. He was bruised in the elbow. He is still doing yardwork and gardening, but not as well as he would like to. He has trouble with going up and down steps or curbs. No dysphagia. No constipation. He complains of being tired all of the time now. The patient reports excessive daytime sleepiness. He is sleeping 12 hours and still needing. Snoring?Yes Tired? (Tired, Fatigued, or Sleepy during the daytime) Yes Observed? (Stop Breathing or Choking/Gasping during your sleep)Yes Pressure? (High blood pressure meds?) Yes Body Mass Index is 28 or greater?Yes Age greater than 50? Yes Neck size (Men >17 in, Women >16 in)Yes Gender Male?Yes STOP BANG score 8 Past Medical History: has a past medical history of GERD (gastroesophageal reflux disease) and Hypertension. Past Surgical History: has a past surgical history that includes Skin surgery (03/2022) and Gallbladder surgery. Medications: Current Outpatient Medications: amLODIPine (Norvasc) 10 MG tablet, Take 10 mg by mouth daily., Disp: , Rfl: aspirin 81 MG EC tablet, Take 81 mg by mouth daily., Disp: , Rfl: carbidopa-levodopa CR (Sinemet CR) 25-100 MG ER tablet, Take 1 tablet by mouth 2 times daily. Do not crush, chew, or split., Disp: 180 tablet, Rfl: 1 doxazosin (Cardura) 2 MG tablet, Take 2 mg by mouth Nightly., Disp: , Rfl: losartan (Cozaar) 100 MG tablet, TAKE 1 TABLET BY MOUTH OINCE A DAY, Disp: , Rfl: metoprolol succinate XL (Toprol-XL) 50 MG 24 hr tablet, Take 50 mg by mouth daily., Disp: , Rfl: omeprazole (PriLOSEC) [address] capsule, TAKE 1 CAPSULE BY MOUTH ON THURSDAY, THURSDAY, AND THURSDAY, Disp: , Rfl: tamsulosin (Flomax) 0.4 MG 24 hr capsule, TAKE 1 CAPSULE BY MOUTH EVERY DAY AT SUPPER TIME. STOP DOXAZOSIN, Disp: , Rfl: Allergies: Simvastatin, Hydrochlorothiazide, and Iodine Social History: Social History Socioeconomic History Marital status: Spouse name: Not on file Number of children: Not on file Years of education: Not on file Highest education level: Not on file Occupational History Not on file Tobacco Use Smoking status: Never Smokeless tobacco: Never Substance and Sexual Activity Alcohol use: Not Currently Drug use: Never Sexual activity: Not on file Other Topics Concern Not on file Social History Narrative Not on file Social Determinants of Health Financial Resource Strain: Not on file Food Insecurity: Not on file Transportation Needs: Not on file Physical Activity: Not on file Stress: Not on file Social Connections: Not on file Intimate Partner Violence: Not on file Housing Stability: Not on file Family History: Family History Problem Relation Name Age of Onset Heart attack Mother Colon cancer Father Aneurysm Sister Alcohol abuse Sister Cancer Brother REVIEW OF SYSTEMS: Review of Systems Constitutional: Negative for appetite change, chills, diaphoresis, fever and unexpected weight change. HENT: Negative for dental problem and mouth sores. Eyes: Negative for discharge and itching. Respiratory: Negative for chest tightness. Cardiovascular: Negative for chest pain and leg swelling. Gastrointestinal: Negative for rectal pain and vomiting. Endocrine: Negative for polydipsia, polyphagia and polyuria. Genitourinary: Negative for decreased urine volume, flank pain and genital sores. Musculoskeletal: Negative for arthralgias. Skin: Negative for color change. Allergic/Immunologic: Negative for food allergies and immunocompromised state. Neurological: Positive for tremors. Hematological: Negative for adenopathy. Does not bruise/bleed easily. Psychiatric/Behaviora l: Negative for agitation, behavioral problems, decreased concentration, sleep disturbance and suicidal ideas. PHYSICAL EXAM: Vitals: BP 132/80 (BP Location: Right arm, Patient Position: Sitting, BP Cuff Size: Adult) Pulse 69 Ht 5' 9" (1.753 m) Wt 222 lb 3.2 oz (101 kg) BMI 32.81 kg/m? General Appearance: Patient is in no apparent distress. Head is normocephalic, atraumatic Cardiovascular: Regular rate and rhythm. No heart murmurs. No carotid bruit Neurologic: Mentation: Alert and oriented x 3 to person, place and time. Speech and Language: Speech and language normal Concentration and Attention: Concentration normal Memory: Memory grossly normal Fund of Knowledge: Fund of knowledge normal Cranial Nerves: II, III, I (more content not included)... Normal [facility] Absolute lymphocyte countOrd ered By: Tab Esdras on 02-02-2023 Lymphocytes Auto (Unsp spec) [#/Vol] 2.40 10*3/uL 0.83-4.51 [facility] Basophil percentageOrdered B y: Tab Dewitt on 02-02-2023 Basophils/100 WBC (Bld) 0.9 % 0-1 [facility] Bilirubin [Mass/Vol] 0.60 mg/dL 0.20-1.00 [facility] Comment on above: For patients on eltr ombopag therapy, use of Dimension [place] TBIL is not recommended. Chloride [Moles/Vol] 111 mmol/L 98-107 [facility] Eosinophils/100 WBC (Bld) 11.1 % 0-5 [facility] Glucose [Mass/Vol] 114 mg/dL 74-106 [facility] Comment on above: Fasting Glucose resu lt from 100 to 125 mg/dL suggests IMPAIRED HOMEOSTASIS per A.D.A. criteria. Neutrophils (Bld) [#/Vol] 2.1 10*3/uL 2.0-7.7 [facility] Neutrophils/100 WBC (Bld) 35.8 % 47-70 [facility] Potassium [Moles/Vol] 4.8 mmol/L 3.5-5.1 [facility] Protein [Mass/Vol] 7.4 g/dL 6.4-8.2 [facility] Sodium [Moles/Vol] 142 mmol/L 136-145 [facility] WBC (Bld) [#/Vol] 5.8 10*3/uL 4.4-11.0 [facility] Blood erythrocytes count (nu mber/volume)Ordered By: Tab Dewitt on 02-02-2023 RBC (Bld) [#/Vol] 5.12 10*6/uL 4.6-6.2 [facility] Blood hemoglobin measurement (mass/volume)Ordered By: Tab Dewitt on 02-02-2023 Hemoglobin (Bld) [Mass/Vol] 16.1 g/dL 13.0-16.5 [facility] Blood lymphocytes/100 leukoc ytesOrdered By: Tab Dewitt on 02-02-2023 Lymphocytes/100 WBC (Bld) 41.5 % 19-41 [facility] Blood monocytes/100 leukocyt esOrdered By: Tab Dewitt on 02-02-2023 Monocytes/100 WBC (Bld) 10.0 % 0-10 [facility] Blood platelet mean volumeOr dered By: Tab Dewitt on 02-02-2023 Platelet mean volume (Bld) [Entitic vol] 10.6 fL 6.2-12.0 [facility] Determination of erythrocyte mean corpuscular volume (MCV)Ordered By: Tab Dewitt on 02-02-2023 MCV (RBC) [Entitic vol] 94.9 fL 80-94 [facility] Hematocrit Auto (Bld) [Volum e fraction]Ordered By: Tab Dewitt on 02-02-2023 Hematocrit (Bld) [Volume fraction] 48.6 % 40-54 [facility] Laboratory - Chemistry and C hemistry - challengeOrdered By: Tab Dewitt on 02-02-2023 ALP [Catalytic activity/Vol] 47 U/L 45-117 [facility] ALT [Catalytic activity/Vol] 68 U/L 16-61 [facility] CO2 [Moles/Vol] 26.0 mmol/L 21.0-32.0 [facility] Globulin (S) [Mass/Vol] 3.4 g/dL 2.2-4.2 [facility] Urea nitrogen/Creatinine [Mass ratio] 19.8 mg/mg 10-20 [facility] Laboratory - Hematology and Cell countsOrdered By: Tab Dewitt on 02-02-2023 Erythrocyte distribution width (RBC) [Entitic vol] 42.5 fL 35.1-43.9 [facility] Erythrocyte distribution width (RBC) [Ratio] 12.1 % 11.6-14.6 [facility] Immature granulocytes/100 WBC (Bld) 0.700 % 0.0-0.9 [facility] Comment on above: IG% - Immature Granu locytes (promyelocytes, myelocytes and metamyelocytes) > 1% indicates that a LEFT SHIFT is Present. MCH (RBC) [Entitic mass] 31.4 pg 27.0-32.0 [facility] Nucleated RBC/100 WBC (Bld) [Ratio] 0 % 0-5 [facility] MCHC Auto (RBC) [Mass/Vol]Or dered By: Tab Dewitt on 02-02-2023 MCHC (RBC) [Mass/Vol] 33.1 g/dL 32-36 [facility] No Panel InformationOrdered By: Tab Dewitt on 02-02-2023 Estimated GFR (MDRD) Amer 74 mL/min >60 [facility] Comment on above: GFR Calc Estimated GFR (MDRD) Non-Af Amer 61 mL/min >60 [facility] Comment on above: Non- GFR Calc Thyroid Stimulating Hormone (TSH) 1.43 uIU/mL 0.358-3.74 [facility] Vitamin D 25-Hydroxy 26.3 ng/mL [facility] Comment on above: Vitamin D 25(OH) Sta tus Range Deficiency <20 ng/mL (50nmol/L) Insufficiency 20 - 30 ng/mL (50 - 75 nmol/L) Sufficiency 30 - 100 ng/mL (75 - 250 nmol/L) Toxicity >100 ng/mL (>250 nmol/L) Platelets bldOrdered By: Tab Dewitt on 02-02-2023 Platelets (Bld) [#/Vol] 112 10*3/uL 150-450 [facility] Serum or plasma albumin sabrina urement (mass/volume)Ordered By: Tab Dewitt on 02-02-2023 Albumin [Mass/Vol] 4.0 g/dL 3.2-5.0 [facility] Serum or plasma albumin/glob ulin mass ratioOrdered By: Tab Dewitt on 02-02-2023 Albumin/Globulin [Mass ratio] 1.2 {ratio} 0.9-2.4 [facility] Serum or plasma calcium sabrina urement (mass/volume)Ordered By: Tab Dewitt on 02-02-2023 Calcium [Mass/Vol] 8.4 mg/dL 8.5-10.1 [facility] Serum or plasma creatinine m easurement (mass/volume)Ordered By: Tab Dewitt on 02-02-2023 Creatinine [Mass/Vol] 1.21 mg/dL 0.70-1.30 [facility] Comment on above: The validity of the calculated GFR & GFRAA in patients over 70 years has not been determined. Clinical correlation is essential. Serum or plasma urea nitroge n measurement (mass/volume)Ordered By: Tab Dewitt on 02-02-2023 Urea nitrogen [Mass/Vol] 24 mg/dL 7-18 [facility] Thin prep Papanicolaou smear with manual screeningOrdered By: Tab Dewitt on 02-02-2023 Thin prep Papanicolaou smear with manual screening 27 U/L 15-37 [facility] Thin prep Papanicolaou smear with manual screening 5 5-15 [facility] Office Visiton 07-31-2016 Documentation of current medications (procedure) Done Invalid Interpretation Code [facility] [employer] Work Phone: Fall risk assessment No Invalid Interpretation Code [facility] Work Phone: Clinical Lists Update: Prelo box toe flanger stitchdowns 07-30-2016 Left ventricular Ejection fraction 60 % Invalid Interpretation Code [employer] Work Phone: [phone] Office Visiton 07-31-2015 Documentation of current medications (procedure) Done Invalid Interpretation Code [employer] Work Phone: [phone] Office Visiton 07-25-2014 cardiac risk group C Invalid Interpretation Code [employer] Work Phone: [phone] General cardiovascular disease 10Y risk [#] Jewell.D'Agostino N/A Invalid Interpretation Code [employer] Work Phone: [phone] Tobacco use CPHS Former smoker Invalid Interpretation Code [employer] Work Phone: [phone] Lab Report: Drawn @ Dr. Esdras dubon officeon 01-07-2013 Alanine aminotransferase (ALT) 53 U/L Invalid Interpretation Code [employer] Work Phone: [phone] Alkaline phosphatase (ALP) 41 U/L Invalid Interpretation Code [employer] Work Phone: [phone] Aspartate aminotransferase (AST) 35 U/L Invalid Interpretation Code [employer] Work Phone: [phone] Cholesterol 100 mg/dL Invalid Interpretation Code [employer] Work Phone: [phone] Cholesterol to HDL Ratio 2.6 {ratio} Invalid Interpretation Code [facility] Phone: [phone] HDL Cholesterol 38 mg/dL Invalid Interpretation Code [employer] Work Phone: [phone] LDL Cholesterol N/A Invalid Interpretation Code [employer] Work Phone: [phone] Triglyceride mg/dL Invalid Interpretation Code [facility] Phone: [phone] EKG Report: [employer] ECG Obse rvationson 11-18-2012 GE use only - for [employer] import when terms are not otherwise specified 401 ms Invalid Interpretation Code [employer] Phone: [phone] Replaced Document: [employer] E CG Observationson 11-18-2012 electrocardiogram interpretation Sinus Rhythm -RSR(V1) -nondiagnostic . PROBABLY NORMAL Invalid Interpretation Code [employer] Work Phone: [phone] P wave axis, electrocardiogram 51 deg Invalid Interpretation Code [employer] Work Phone: [phone] AL interval, electrocardiogram 188 ms Invalid Interpretation Code [employer] Work Phone: [phone] Pulse (Heart Rate) 402 ms Invalid Interpretation Code [facility] [employer] Work Phone: [phone] Pulse (Heart Rate) 71 /min Invalid Interpretation Code [facility] [employer] Work Phone: [phone] QRS axis, electrocardiogram 83 deg Invalid Interpretation Code [employer] Work Phone: [phone] QRS duration, electrocardiogram 112 ms Invalid Interpretation Code [facility] Work Phone: [phone] QT interval, electrocardiogram new path ms Invalid Interpretation Code [facility] Work Phone: [phone] T wave axis, electrocardiogram 26 deg Invalid Interpretation Code [employer] Work Phone: [phone] Clinical Lists Update: Prelo box toe flanger stitchdowns 11-25-2011 Albumin 4.1 g/dL Invalid Interpretation Code [facility] [employer] Work Phone: [phone] Bilirubin (total) 0.60 mg/dL Invalid Interpretation Code [facility] Work Phone: [phone] Protein 7.2 g/dL Invalid Interpretation Code [facility] Work Phone: [phone] very low density lipoproteins 51 mg/dL High [employer] Work Phone: [phone] Vital Signs Date Time Vital Sign Value Performing Clinician Jose harman 12-22-2024 13:00-0400 Body height 175.[address] Tab Dewitt MD Work Phone: [facility] 12-22-2024 13:00-0400 Body mass index (BMI) [Ratio] 31.8 kg/m2 Dr. Tab Dewitt MD Work Phone: [facility] 12-22-2024 13:00-0400 Body weight 97.[address] Tab Dewitt MD Work Phone: [facility] 12-22-2024 13:00-0400 Diastolic blood pressure 70 mm[Hg] Dr. Tab Dewitt MD Work Phone: [facility] 12-22-2024 13:00-0400 Heart rate 71 /min Dr. Tab Dewitt MD Work Phone: [facility] 12-22-2024 13:00-0400 Respiratory rate 18 /min Dr. Tab Dewitt MD Work Phone: [facility] 12-22-2024 13:00-0400 SaO2% (BldA) [Mass fraction] 93 % Dr. Tab Dewitt MD Work Phone: [facility] 12-22-2024 13:00-0400 Systolic blood pressure 105 mm[Hg] Dr. Tab Dewitt MD Work Phone: [facility] 11-21-2024 12:46-0400 Body height 175.3 cm Heraclio Kay MD Work Phone: [facility] 11-21-2024 12:46-0400 Body mass index (BMI) [Ratio] 32.16 kg/m2 Heraclio Kay MD Work Phone: [facility] 11-21-2024 12:46-0400 Body weight 98.79 kg Heraclio Kay MD Work Phone: [facility] 11-21-2024 12:46-0400 Diastolic blood pressure 76 mm[Hg] Heraclio Kay MD Work Phone: [facility] 11-21-2024 12:46-0400 Heart rate 80 /min Heraclio Kay MD Work Phone: [facility] 11-21-2024 12:46-0400 Systolic blood pressure 111 mm[Hg] Heraclio Kay MD Work Phone: [facility] 09-07-2024 12:54-0400 Body height 175.3 cm Heraclio Kay MD Work Phone: [facility] 09-07-2024 12:54-0400 Body mass index (BMI) [Ratio] 32.58 kg/m2 Heraclio Kay MD Work Phone: [facility] 09-07-2024 12:54-0400 Body weight 100.06 kg Heraclio Kay MD Work Phone: [facility] 09-07-2024 12:54-0400 Diastolic blood pressure 82 mm[Hg] Heraclio Kay MD Work Phone: [facility] 09-07-2024 12:54-0400 Heart rate 73 /min Heraclio Kya MD Work Phone: [facility] 09-07-2024 12:54-0400 Systolic blood pressure 142 mm[Hg] Heraclio Kay MD Work Phone: [facility] 05-18-2024 09:59-0500 Body height 175.3 cm Heraclio Kay MD Work Phone: [facility] 05-18-2024 09:59-0500 Body mass index (BMI) [Ratio] 32.73 kg/m2 Heraclio Kay MD Work Phone: [facility] 05-18-2024 09:59-0500 Body weight 100.53 kg Heraclio Kay MD Work Phone: [facility] 05-18-2024 09:59-0500 Diastolic blood pressure 83 mm[Hg] Heraclio Kay MD Work Phone: [facility] 05-18-2024 09:59-0500 Heart rate 69 /min Heraclio Kay MD Work Phone: [facility] 05-18-2024 09:59-0500 Systolic blood pressure 152 mm[Hg] Heraclio Kay MD Work Phone: [facility] 02-16-2024 15:12-0500 Body height 175.3 cm Heraclio Kay MD Work Phone: [facility] 02-16-2024 15:12-0500 Body mass index (BMI) [Ratio] 32.78 kg/m2 Heraclio Kay MD Work Phone: [facility] 02-16-2024 15:12-0500 Body weight 100.7 kg Heraclio Kay MD Work Phone: [facility] 12-11-2023 10:09-0400 Body height 175.3 cm Heraclio Kay MD Work Phone: [facility] 12-11-2023 10:09-0400 Body mass index (BMI) [Ratio] 32.81 kg/m2 Heraclio Kay MD Work Phone: [facility] 12-11-2023 10:09-0400 Body weight 100.79 kg Heraclio Kay MD Work Phone: [facility] 12-11-2023 10:09-0400 Diastolic blood pressure 80 mm[Hg] Heraclio Kay MD Work Phone: [facility] 12-11-2023 10:09-0400 Heart rate 69 /min Heraclio Kay MD Work Phone: [facility] 12-11-2023 10:09-0400 Systolic blood pressure 132 mm[Hg] Heraclio Kay MD Work Phone: [facility] 09-10-2023 09:16-0400 Body height 175.3 cm Heraclio Kay MD Work Phone: [facility] 09-10-2023 09:16-0400 Body mass index (BMI) [Ratio] 32.4 kg/m2 Heraclio Kay MD Work Phone: [facility] 09-10-2023 09:16-0400 Body weight 99.52 kg Hreaclio Kay MD Work Phone: [facility] 09-10-2023 09:16-0400 Diastolic blood pressure 89 mm[Hg] Heraclio Kay MD Work Phone: [facility] 09-10-2023 09:16-0400 Heart rate 85 /min Heraclio Kay MD Work Phone: [facility] 09-10-2023 09:16-0400 Systolic blood pressure 164 mm[Hg] Heraclio Kay MD Work Phone: [facility] 03-04-2023 10:58-0500 Body mass index (BMI) [Ratio] 32.34 kg/m2 Heraclio Kay MD Work Phone: [facility] 03-04-2023 10:58-0500 Body weight 99.34 kg Heraclio Kay MD Work Phone: [facility] 03-04-2023 10:58-0500 Diastolic blood pressure 86 mm[Hg] Heraclio Kay MD Work Phone: [facility] 03-04-2023 10:58-0500 Heart rate 67 /min Heraclio Kay MD Work Phone: [facility] 03-04-2023 10:58-0500 Systolic blood pressure 150 mm[Hg] Heraclio Kay MD Work Phone: [facility] 12-23-2022 09:16-0400 Body height 175.[address] Tab Dewitt Work Phone: [facility] 12-23-2022 09:16-0400 Body mass index (BMI) [Ratio] 31.8 kg/m2 Dr. Tab Dewitt Work Phone: [facility] 12-23-2022 09:16-0400 Body weight 97.[address] Tab Dewitt Work Phone: [facility] 12-23-2022 09:16-0400 Diastolic blood pressure 86 mm[Hg] Dr. Tab Dewitt Work Phone: [facility] 12-23-2022 09:16-0400 Heart rate 73 /min Dr. Tab Dewitt Work Phone: [facility] 12-23-2022 09:16-0400 Respiratory rate 16 /min Dr. Tab Dewitt Work Phone: [facility] 12-23-2022 09:16-0400 Systolic blood pressure 157 mm[Hg] Dr. Tab Dewitt Work Phone: [facility] 09-09-2022 10:24-0400 Body height 175.3 cm Heraclio Kay MD Work Phone: [facility] 09-09-2022 10:24-0400 Body mass index (BMI) [Ratio] 32.96 kg/m2 Heraclio Kay MD Work Phone: [facility] 09-09-2022 10:24-0400 Body weight 101.24 kg Heraclio Kay MD Work Phone: [facility] 09-09-2022 10:24-0400 Diastolic blood pressure 84 mm[Hg] Heraclio Kay MD Work Phone: [facility] 09-09-2022 10:24-0400 Heart rate 65 /min Heraclio Kay MD Work Phone: [facility] 09-09-2022 10:24-0400 Systolic blood pressure 153 mm[Hg] Heraclio Kay MD Work Phone: [facility] 07-31-2016 09:08-0400 BMI (Body Mass Index) 30.79 kg/m2 [facility] Work Phone: 07-31-2016 09:08-0400 BP Diastolic 86 mm[Hg] [facility] Work Phone: 07-31-2016 09:08-0400 BP Systolic 140 mm[Hg] Gisela Rodrigo [facility] Work Phone: 07-31-2016 09:08-0400 Height 175.26 cm Gisela Rodrigo [facility] Work Phone: 07-31-2016 09:08-0400 Pulse (Heart Rate) 70 /min Gisela Rodrigo [facility] Work Phone: 07-31-2016 09:08-0400 Respiratory Rate 18 /min Gisela Rodrigo [facility] Work Phone: 07-31-2016 09:08-0400 Weight 94.58 kg [facility] Work Phone: 07-31-2015 08:59-0400 BMI (Body Mass Index) 31.24 kg/m2 [facility] Work Phone: 07-31-2015 08:59-0400 BP Diastolic 70 mm[Hg] Jennifer Barrientos RN [facility] Work Phone: 07-31-2015 08:59-0400 BP Systolic 100 mm[Hg] Jennifer Barrientos RN [facility] Work Phone: 07-31-2015 08:59-0400 BSA (Body Surface Area) 2.12 m2 Jennifer Barrientos RN [facility] Work Phone: 07-31-2015 08:59-0400 Pulse (Heart Rate) 68 /min Jennifer Barrientos RN [facility] Work Phone: 07-31-2015 08:59-0400 Respiratory Rate 20 /min Jennifer Barrientos RN [facility] Work Phone: 07-31-2015 08:59-0400 Weight 95.98 kg Jennifer Barrientos RN [facility] Work Phone: 03-04-2011 09:00-0500 Height 175.26 cm Jennifer Barrientos RN [facility] Work Phone: Encounters Encounter Date Encounter Type Care Provider Facility Start: 01-18-2025 ambulatory Tab Dewitt Facility:[facility] Start: 12-22-2024 End: 12-22-2024 Patient encounter procedure Latha [facility] Work Phone: Start: 12-22-2024 End: 12-22-[address] Tab Dewitt MD Work Phone: [facility] Start: 11-21-2024 End: 11-21-2024 ambulatory HERACLIO KAY [facility] Start: 11-21-2024 End: 11-21-2024 Office outpatient visit 15 minutes Heraclio Kay MD Work Phone: [facility] Comment on above: CARLY (obstructive sle ep apnea) (Primary Dx); Mild cognitive impairment with memory loss; Parkinson's disease without dyskinesia or fluctuating manifestations (HCC) Start: 09-07-2024 End: 09-07-2024 Office outpatient visit 25 minutes Heraclio Kay MD Work Phone: [facility] Comment on above: CARLY (obstructive sle ep apnea) (Primary Dx); Mild cognitive impairment with memory loss; Parkinson's disease without dyskinesia or fluctuating manifestations (HCC) Start: 09-07-2024 End: 09-07-2024 ambulatory HERACLIO [facility] Start: 07-08-2024 End: 07-21-2024 Telephone encounter Heraclio Kay MD Work Phone: [facility] Comment on above: Sleep Study Start: 07-05-2024 End: 07-05-2024 Telephone encounter Heraclio Kay MD Work Phone: [facility] Comment on above: Orders Start: 06-19-2024 End: 06-19-2024 Telephone encounter Heraclio Kay MD Work Phone: [facility] Comment on above: Other (Regarding CPA P machine ) Start: 06-14-2024 End: 06-14-2024 ambulatory Heraclio Kay MD Work Phone: [facility] Comment on above: Obstructive sleep ap jose Start: 06-10-2024 End: 06-10-2024 Telephone encounter Heraclio Kay MD Work Phone: [facility] Start: 06-08-2024 End: 06-09-2024 ambulatory Heraclio Kay MD Work Phone: [facility] Comment on above: Obstructive sleep ap jose; Fatigue, unspecified type Start: 05-20-2024 End: 05-20-2024 Subsequent hospital visit by physician Heraclio Kay MD Work Phone: [facility] Comment on above: Mild cognitive impai rment with memory loss; Vertigo Start: 05-20-2024 End: 05-20-2024 ambulatory HERACLIO [facility] Start: 05-18-2024 End: 05-18-2024 Office outpatient visit 25 minutes Heraclio Kay MD Work Phone: [facility] Comment on above: Parkinson's disease without dyskinesia or fluctuating manifestations (HCC) (Primary Dx); Mild cognitive impairment with memory loss; Obstructive sleep apnea; Vertigo; Fatigue, unspecified type Start: 05-18-2024 End: 05-18-2024 ambulatory [facility] Start: 02-16-2024 End: 02-16-2024 Office outpatient visit 15 minutes Heraclio Kay MD Work Phone: [facility] Comment on above: Parkinson's disease without dyskinesia or fluctuating manifestations (HCC) (Primary Dx); Obstructive sleep apnea; Vertigo Start: 02-16-2024 End: 02-16-2024 ambulatory [facility] Start: 02-14-2024 End: 02-14-2024 ambulatory Rochelle Wheeler RN [facility] Start: 02-14-2024 End: 02-14-2024 [facility] Start: 02-09-2024 End: 02-09-2024 ambulatory Tab Dewitt Facility:[facility] Start: 12-11-2023 End: 12-11-2023 Office outpatient visit 25 minutes Heraclio Kay MD Work Phone: [facility] Comment on above: Parkinson's disease without dyskinesia or fluctuating manifestations (HCC) (Primary Dx); Obstructive sleep apnea Start: 12-11-2023 End: 12-11-2023 ambulatory [facility] Start: 09-10-2023 End: 09-10-2023 Office outpatient visit 25 minutes Heraclio Kay MD Work Phone: [facility] Comment on above: Parkinson's disease without dyskinesia or fluctuating manifestations (HCC) (Primary Dx) Start: 04-15-2023 End: 04-15-[address] Tab Dewitt Work Phone: [facility] Work Phone: Start: 04-15-2023 End: 04-15-[address] Tab Dewitt Work Phone: [facility] Work Phone: Start: 03-04-2023 End: 03-04-2023 Office outpatient visit 25 minutes Heraclio Kay MD Work Phone: [facility] Comment on above: Parkinsonism, unspec ified Parkinsonism type (Primary Dx) Start: 02-02-2023 End: 02-02-[address] Tab Dewitt Work Phone: [facility] Work Phone: Start: 02-02-2023 End: 02-02-[address] Tab Dewitt Work Phone: [facility]Laboratory, Phy Office 3rd Flr Start: 12-23-2022 End: 12-23-[address] Tab Dewitt Work Phone: [facility] Work Phone: Start: 09-09-2022 End: 09-09-2022 Office outpatient new 45 minutes Heraclio Kay MD Work Phone: [facility] Comment on above: Tremor (Primary Dx) Procedures Date Procedure Procedure Detail Performing Clinician Start: 05-20-2024 Mri brain brain stem w/o contrast material Heraclio Kay MD Work Phone: Start: 07-31-2016 End: 07-31-2016 AMAN Cheng MD Start: 07-31-2016 End: 07-31-2016 Follow Up Appt 1 year Lukas Cheng MD Start: 07-31-2016 End: 08-06-2016 Nuclear stress test -exercise Lukas Cheng MD Start: 07-31-2015 End: 07-31-2016 AMAN Cheng MD Start: 07-31-2015 End: 07-31-2016 Follow Up Appt 1 year Lukas Cheng MD Start: 07-25-2014 End: 07-25-2014 AMAN Cheng MD Start: 07-25-2014 End: 07-26-2014 Documentation of current medications Lukas Cheng MD Start: 07-25-2014 End: 07-25-2014 Follow Up Appt 1 year Lukas Cheng MD Start: 07-26-2013 End: 07-26-2013 AMAN Cehng MD Start: 07-26-2013 End: 07-26-2013 Follow Up Appt 1 year Lukas Cheng MD Start: 11-18-2012 Lipid 1996 panel - S chika or Sue Kay MD Work Phone: Start: 11-18-2012 End: 01-11-2013 *Hepatic Function Panel Latha davidson PA-C Work Phone: Start: 11-18-2012 End: 07-31-2016 Carotid duplex Latha Donovan PA-C Work Phone: Start: 11-18-2012 End: 11-18-2012 PROFESSIONAL DEVELOPMENT INSTRUCTOR Latha Donovan PA-C Work Phone: Start: 11-18-2012 End: 11-18-2012 Electrocardiogram, complete aLtha Addison PA-C Work Phone: Start: 11-18-2012 End: 11-18-2012 Follow Up Appt 6 months Latha davidson PA-C Work Phone: Start: 11-18-2012 End: 01-11-2013 Lipid panel [AGGREGATE] Latha davidson PA-C Work Phone: Start: 11-18-2012 End: 07-11-2013 Nuclear stress test -exercise Latha Donovan PA-C Work Phone: Start: 04-07-2012 End: 11-18-2012 *Hepatic Function Panel Eleni Piña Start: 04-07-2012 End: 04-07-2012 AMAN Cheng MD Start: 04-07-2012 End: 04-07-2012 Follow Up Appt 6 months Eleni Piña Start: 04-07-2012 End: 11-18-2012 Lipid panel [AGGREGATE] Eleni Piña Start: 09-30-2011 End: 09-30-2011 Follow Up Appt 6 months Eleni Piña Plan of Treatment Date Care Activity Detail Author Start: 06-19-2025 End: 06-19-2025 Patient encounter procedure 06/19/2025 12:40 PM EDT Office Visit [facility] [address] [phone] Heraclio Kay MD [address] [address] [facility] Start: 11-21-2024 End: 11-21-2024 Patient encounter procedure 11/21/2024 12:00 PM EDT Office Visit [facility] [address] [phone] Heraclio Kay MD [address] [address] [facility] Start: 11-14-2024 COVID-19 Vaccine ( season) COVID-19 Vaccine ( season) [facility] Start: 11-14-2024 Influenza vaccination [facility] Start: 09-07-2024 End: 09-07-2025 AD-Detect ABeta 42/40 and [id number] Evaluation, Plasma Test Code 70469 - Miscellaneous Test AD-Detect ABeta 42/40 and [id number] Evaluation, Plasma Test Code 91489 - Miscellaneous Test Lab Routine Mild cognitive impairment with memory loss Expected: 09/07/2024 (Approximate), Expires: 09/07/2025 [facility] Work Phone: Comment on above: Expected: 09/07/2024 (Approximate), Expi res: 09/07/2025 Start: 09-07-2024 End: 09-07-2024 Patient encounter procedure 09/07/2024 1:00 PM EDT Office Visit [facility] [address] [facility] [address] [place] [phone] Heraclio Kay MD [address] [facility] [address] [place] [address] [facility] Start: 07-16-2024 End: 07-16-2024 Clinical Support 07/16/2024 8:30 PM EDT Clinical Support [facility] [address] [place] [phone] Heraclio Kay MD [address] [facility] [address] [place] [address] [facility] Start: 06-19-2024 End: 06-19-2025 Sleep study with pap titration Sleep study with pap titration Sleep Center Routine Obstructive sleep apnea Expected: 06/19/2024 (Approximate), Expires: 06/19/2025 [facility] Work Phone: Comment on above: Expected: 06/19/2024 (Approximate), Expi res: 06/19/2025 Start: 06-14-2024 End: 06-14-2024 Clinical Support 06/14/2024 7:00 AM EDT Clinical Support [facility] [address] [place] [phone] Heraclio Kay MD [address] [address] [facility] Start: 06-10-2024 End: 06-10-2025 Home sleep test Home sleep test Sleep Center Routine Obstructive sleep apnea Expected: 06/10/2024 (Approximate), Expires: 06/10/2025 [facility] Work Phone: Comment on above: Expected: 06/10/2024 (Approximate), Expi res: 06/10/2025 Start: 06-08-2024 End: 06-08-2024 Clinical Support 06/08/2024 8:30 PM EDT Clinical Support [facility] [address] [place] [phone] Heraclio Kay MD [address] [facility] [address] [place], [place] [phone] [facility] Start: 05-20-2024 End: 05-20-2024 Patient encounter procedure 05/20/2024 9:45 AM EST Appointment [email or web address] [address] [facility] [address] [place] [phone] Heraclio Kay MD 201 [facility] 14 [place] [address] [facility] Start: 05-18-2024 End: 05-18-2025 Cobalamin (Vitamin B12) [Mass/volume] in Serum or Plasma Vitamin B12 Lab Routine Mild cognitive impairment with memory loss Fatigue, unspecified type Expected: 05/18/2024 (Approximate), Expires: 05/18/2025 [facility] Comment on above: Expected: 05/18/2024 (Approximate), Expi res: 05/18/2025 Start: 05-18-2024 End: 05-18-2025 MR Brain WO contrast MR brain wo contrast Imaging Routine Mild cognitive impairment with memory loss Vertigo Expected: 05/18/2024, Expires: 05/18/2025 [facility] [employer] Comment on above: Expected: 05/18/2024, Expires: Start: 05-18-2024 End: 05-18-2025 Polysomnography Polysomnography Sleep Center Routine Obstructive sleep apnea Fatigue, unspecified type Expected: 05/18/2024 (Approximate), Expires: 05/18/2025 [facility] [employer] [facility] Work Phone: Comment on above: Expected: 05/18/2024 (Approximate), Expi res: 05/18/2025 Start: 05-18-2024 End: 05-18-2025 Thyrotropin [Units/volume] in Serum or Plasma TSH Lab Routine Mild cognitive impairment with memory loss Fatigue, unspecified type Expected: 05/18/2024 (Approximate), Expires: 05/18/2025 [facility] [employer] Comment on above: Expected: 05/18/2024 (Approximate), Expi res: 05/18/2025 Start: 05-18-2024 End: 05-18-2025 Vitamin B1 ([facility]) Vitamin B1 ([facility]) Lab Routine Mild cognitive impairment with memory loss Fatigue, unspecified type Expected: 05/18/2024 (Approximate), Expires: 05/18/2025 [facility] [employer] Comment on above: Expected: 05/18/2024 (Approximate), Expi res: 05/18/2025 Start: 05-18-2024 End: 05-18-2025 Vitamin B6 Vitamin B6 Lab Routine Mild cognitive impairment with memory loss Fatigue, unspecified type Expected: 05/18/2024 (Approximate), Expires: 05/18/2025 [facility] [employer] Comment on above: Expected: 05/18/2024 (Approximate), Expi res: 05/18/2025 Start: 05-18-2024 End: 05-18-2024 Patient encounter procedure 05/18/2024 10:00 AM EST Office Visit [facility] [address] [phone] Heraclio Kay MD [address] [address] [facility] Start: 03-25-2024 End: 03-25-2024 Patient encounter procedure 03/25/2024 10:40 AM EST Office Visit [facility] [address] [phone] Heraclio Kay MD [address] [address] [facility] Start: 03-16-2024 Medicare Advantage Annual Wellness Visit Medicare Advantage Annual Wellness Visit [facility] Start: 02-16-2024 End: 02-16-2024 Telemedicine consultation with patient 02/16/2024 3:20 PM EST Telemedicine [facility] [address] [facility] [address] [place] [phone] Heraclio Kya MD [address] [facility] [address] [place] [address] [facility] Start: 12-11-2023 End: 12-11-2023 Patient encounter procedure 12/11/2023 10:10 AM EDT Office Visit [facility] [address] [phone] Heraclio Kay MD [address] [address] [facility] Start: 11-15-2023 COVID-19 Vaccine ( season) COVID-19 Vaccine ( season) [facility] Start: 11-15-2023 COVID-19 Vaccine ( season) COVID-19 Vaccine ( season) [facility] Start: 11-15-2023 Influenza vaccination [facility] Start: 09-03-2023 End: 09-03-2023 Patient encounter procedure 09/03/2023 9:00 AM EDT Office Visit [facility] [address] [facility] [address] [place] [phone] Heraclio Kay MD [address] [facility] [address] [place] [address] [facility] Start: 03-16-2023 Medicare Advantage Annual Wellness Visit Medicare [facility] Annual Wellness Visit [facility] Start: 03-04-2023 End: 03-04-2023 Patient encounter procedure 03/04/2023 11:00 AM EST Office Visit [facility] [address] [facility] [address] [place] [address] Heraclio Kay MD [address] [facility] [address] [place] [address] [facility] Start: 11-14-2022 COVID-19 Vaccine ( season) COVID-19 Vaccine ( season) [facility] Start: 11-14-2022 Influenza vaccination [facility] Start: 03-20-2021 COVID-19 Vaccine (4 - Booster for Pfizer series) COVID-19 Vaccine (4 - Booster for Pfizer series) [facility] Start: 05-05-2019 Zoster Vaccines (2 of 2) Zoster Vaccines (2 of 2) [facility] Start: 2018 RSV Immunization for Adults (1 - 1-dose 75+ series) RSV Immunization for Adults (1 - 1-dose 75+ series) [facility] Start: 11-18-2017 Lipid panel Lipid Panel [facility] Start: 07-30-2017 End: 07-30-2017 Appointment Appointment [facility] Work Phone: Start: 07-31-2016 End: 07-31-2016 Appointment Appointment [facility] Work Phone: Start: 07-31-2016 End: 07-31-2016 PROFESSIONAL DEVELOPMENT INSTRUCTOR PROFESSIONAL DEVELOPMENT INSTRUCTOR [facility] Work Phone: Start: 07-31-2016 End: 07-31-2016 Follow Up Appt 1 year Follow Up Appt 1 year [facility] Work Phone: Start: 07-31-2016 End: 07-31-2016 Nuclear stress test -exercise Nuclear stress test -exercise [facility] Work Phone: Start: 07-31-2015 End: 07-31-2016 PROFESSIONAL DEVELOPMENT INSTRUCTOR PROFESSIONAL DEVELOPMENT INSTRUCTOR [facility] Work Phone: Start: 07-31-2015 End: 07-31-2016 Follow Up Appt 1 year Follow Up Appt 1 year [facility] Work Phone: Start: 07-25-2014 End: 07-25-2014 PROFESSIONAL DEVELOPMENT INSTRUCTOR PROFESSIONAL DEVELOPMENT INSTRUCTOR [facility] Work Phone: Start: 07-25-2014 End: 07-25-2014 Follow Up Appt 1 year Follow Up Appt 1 year [facility] Work Phone: Start: 07-26-2013 End: 07-26-2013 PROFESSIONAL DEVELOPMENT INSTRUCTOR PROFESSIONAL DEVELOPMENT INSTRUCTOR [facility] Work Phone: Start: 07-26-2013 End: 07-26-2013 Follow Up Appt 1 year Follow Up Appt 1 year [facility] Work Phone: Start: 11-18-2012 End: 01-11-2013 *Hepatic Function Panel *Hepatic Function Panel [facility] Work Phone: Start: 11-18-2012 End: 06-03-2013 Carotid duplex Carotid duplex [facility] Work Phone: Start: 11-18-2012 End: 11-18-2012 PROFESSIONAL DEVELOPMENT INSTRUCTOR PROFESSIONAL DEVELOPMENT INSTRUCTOR [facility] Work Phone: Start: 11-18-2012 End: 11-18-2012 Electrocardiogram, complete EKG (In office) [facility] Work Phone: Start: 11-18-2012 End: 11-18-2012 Follow Up Appt 6 months Follow Up Appt 6 months [facility] Work Phone: Start: 11-18-2012 End: 01-11-2013 Lipid panel [AGGREGATE] *Lipid Profile CC PCP [facility] Work Phone: Start: 11-18-2012 End: 11-18-2012 Nuclear stress test -exercise Nuclear stress test -exercise [facility] Work Phone: Start: 04-07-2012 End: 11-18-2012 *Hepatic Function Panel *Hepatic Function Panel [facility] Work Phone: Start: 04-07-2012 End: 04-07-2012 PROFESSIONAL DEVELOPMENT INSTRUCTOR PROFESSIONAL DEVELOPMENT INSTRUCTOR [facility] Work Phone: Start: 04-07-2012 End: 04-07-2012 Follow Up Appt 6 months Follow Up Appt 6 months [facility] Work Phone: Start: 04-07-2012 End: 11-18-2012 Lipid panel [AGGREGATE] *Lipid Profile [facility] Work Phone: Start: 09-30-2011 End: 09-30-2011 Follow Up Appt 6 months Follow Up Appt 6 months [facility] Work Phone: Start: 2008 Pneumococcal Vaccine: 65+ Years (1 - PCV) Pneumococcal Vaccine: 65+ Years (1 - PCV) [facility] Start: 2008 Pneumococcal Vaccine: 65+ Years (1 of 1 - PCV) Pneumococcal Vaccine: 65+ Years (1 of 1 - PCV) [facility] Start: 2003 RSV Immunization aged 60 or older (1 - 1-dose 60+ series) RSV Immunization aged 60 or older (1 - 1-dose 60+ series) [facility] Start: 1993 Pneumococcal Vaccine: 50+ Years (1 of 1 - PCV) Pneumococcal Vaccine: 50+ Years (1 of 1 - PCV) [facility] Start: 1962 DTaP/Tdap/Td Vaccines (1 - Tdap) DTaP/Tdap/Td Vaccines (1 - Tdap) [facility] Start: 1961 Hepatitis C screening Hepatitis C Screening [facility] Start: 1955 Depression Screening Depression Screening [facility] Immunizations Immunization Date Immunization Notes Care Provider Fa cili 01-23-2021 influenza virus vacc ine, unspecified formulation Heraclio Kay MD Work Phone: [facility] Payers Date Payer Category Payer Self-pay [id number] 2023 Medicare [employer] RE [employer] [id number] 2023-Present [address] [place] [address] Medicare HMO [id number] 2023 Medicare HMO [employer] SECURE [id number] 2022 Unknown [employer] ARE [id number] 2022-Present [address] [place] [address] Commercial [id number] 2016 Medicare [id number] 2016 Medicare [id number] Unknown [id number] 2 Unknown [id number] 2 Unknown [id number] 2 Social History Date Type Detail Facility Start: 09-09-2022 [facility] Never smoked tobacco [facility] Start: 09-09-2022 Tobacco use and exposure Smokeless tobacco non-user [facility] Start: 09-09-2022 End: 11-21-2024 Alcohol intake Ex-drinker (finding) [facility] Start: 1945 Sex Assigned At Not on file [facility] Start: 09-09-2022 End: 11-21-2024 Gender identity Not on file [facility] Start: 08-30-2022 End: 09-09-2022 Exposure to SARS-CoV-2 (event) Not sure [facility] Start: 12-23-2022 Tobacco smoking [facility] [place] Unknown if ever smoked [facility] Start: 1945 Sex Assigned At Male [facility] Start: 09-09-2022 End: 11-21-2024 History of Social function [facility] Start: 10-14-2021 Sex Male (finding) [facility] Start: 12-16-2023 Gender identity Identifies as male gender (finding) [facility] Start: 12-16-2023 Sexual orientation Heterosexual (fin gregory) [facility] Start: 12-23-2022 End: 02-16-2024 Tobacco smoking status NHIS Ex-smoker [facility] History of tobacco use Current smoker [facility] History of tobacco use Pipe Smoker [facility] History of tobacco use Cigar Smoker [facility] Start: 02-16-2024 Tobacco use and exposure Former smokeless tobacco user [facility] Clinical Notes 09-09-2022 to 12-22-2024 Note Date & Type Note Facility 12-22-2024 Progress note [facility] 12-22-2024 Progress note Note Date/Time December 22, 2024 4:16pm [facility] [address] [place] [address] OFFICE VISIT Date of Service: 12/22/24 MR#: [id number] Acct: [id number] Name: LON DIOR Rep #: [id number] : 1945 Provider: PERFECTO Caballero Age/Sex: 79/M Location: [facility] Status: Signed HPI HPI History of Present Illness Details: The patient is an 79-year-old male with minimal coronary artery disease, HTN, and DM, presenting for follow-up. He denies chest pain, heaviness, tightness, palpitations, or worsening dyspnea. He reports occasional mild lower extremity swelling, which is neither tight nor firm, and does not cause him concern. He is currently taking metoprolol, losartan, amlodipine, carvedilol, and tamsulosin. He reports sleeping well and rising daily at 5:00 AM. He remains active, tendingto seven small home gardens, and enjoys regular visits from his extended family. Intake Vital Signs 01/11/24 10:00 12/22/24 13:00 Height 5 ft 9 in 5 ft 9 in Weight: 217 lb 216 lb BMI 32.0 31.8 BP 135/76 H 105/70 Blood Pressure Location Lt brachial Lt brachial Position Sitting Sitting Respiration 18 18 Pulse 74 71 Pulse Source Monitor Monitor Pulse Oximetry (%) 95 93 Oxygen Delivery Method room air Intake Visit Reasons: 1 Y [employer] Consultant Required: No Accompanied by: Is patient in pain?: No Allergies hydrochlorothiazide Adverse Reaction (Verified 12/22/24 15:44) fatigue iodine Adverse Reaction (Verified 12/22/24 15:44) life threatening, pt not allergic to iodine, but brother is. simvastatin (From Zocor) Adverse Reaction (Verified 12/22/24 15:44) elevated liver enzymes Medications ?Medication ?Instructions ?Recorded ?Confirmed ?Type amlodipine 10 mg tablet 10 mg PO DAILY #90 tabs 12/1512/22/24 Rx carbidopa 25 mg-levodopa 100 mg 1 tab PO TID 01/11/24 12/22/24 History tablet losartan 100 mg tablet 100 mg PO DAILY #90 TABLETS 01/11/24 12/22/24 Rx metoprolol succinate 50 mg 50 mg PO QDAY #90 tabs 12/1512/22/24 Rx tablet,extended release 24 hr omeprazole 40 mg capsule,delayed See Rx Instructions . Route 01/11/24 12/22/24 Rx release .COMPLEX #45 caps tamsulosin 0.4 mg capsule 0.4 mg PO QDAY 01/11/2412/08 History Ejection fraction %: 72 Have you fallen in the past year?: No PFSH Medical History Obesity Essential (primary) hypertension GERD (gastroesophageal reflux disease) Carotid bruit Atherosclerotic heart disease of [place] coronary artery without angina pectoris HLD (hyperlipidemia) Surgical History History of 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 [place] History of left heart catheterization (06/12/04) Hx of cholecystectomy Hx of hernia repair History of tonsillectomy Family History Father Colon cancer Brother Hypertension Sister Hypertension Social History Smoking Status: Former smoker how long ago did patient quit smokin years ago alcohol intake: never substance use type: does not use caffeine: Yes Type: coffee Number of servings: 1 ROS Const Const: Negative for fatigue, weakness or headache(s) Eyes Eyes: Negative for change in vision ENT ENT: Positive for balance problems (Pt has Parkinson's but isn't unstable.); Negative for headache(s), dizziness or Nosebleed/epistaxis Cardio Chest Pain: No Palpitations: No Edema: Bilateral Resp Respiratory: Negative for SOB with activity GI GI: Positive for heartburn (Occassionally); Negative nausea, vomiting or bright, red blood in stools : Negative for hematuria Musc Musc: Positive for balance problems (Pt has Parkinson's but isn't unstable.) Neuro Neuro: Negative for dizziness, lightheadedness, syncope, headache(s) or weakness Endo Endo: Negative for fatigue Cardiology Exam Const Appearance: cooperative, healthy appearing, comfortable, no acute distress and well developed Orientation: alert, awake and oriented x3 Head Head: normal to inspection Ears: hearing grossly normal bilaterally Nose: external nose normal Face and Sinus: face symmetric Mouth: oral mucosae normal, lip normal and moist mucous membranes Eyes General: appearance normal, both eyes and all related structures Eyelids: eyelids normal Conjunctivae: conjunctivae normal Pupils: PERRL EOM: EOM intact bilaterally Neck Neck: normal visual inspection and trachea midline; Negative no JVD Carotids: Negative bruit Chest Chest inspection: normal inspection of the chest Auscultation: Bilateral: Clear to Auscultation Cardio Palpation: normal PMI Rate: regular rate Rhythm: regular rhythm Heart sounds: S1 normal and S2 normal; Negative rub, gallop or murmur GI GI: soft, no hepatosplenomegaly and bowel sounds present Neuro General: patient alert, patient awake, patient oriented x3 and CN's II-XI intactbilaterally Extremities Pulses: Normal: Right Posterior Tibial Pulse, Left Posterior Tibial Pulse, RightRadial Pulse and Left Radial Pulse Lower Extremity Edema: None: Bilateral Psych Psychological: normal affect Supplemental Info Supplemental Information Stress test 2017: Resting EKG demonstrates normal sinus rhythm with a rate of 65 beats per minute. Normal intervals are noted. Resting blood pressure was 148/96. An incomplete right bundle-branch block is noted. The patient exercised according to a regular Chava protocol for a total durationof 8 minutes completing 2 minutes into stage 3 of the Chava protocol. The maximum heart rate attained was 129 beats, which was 87% of maximum predicted heart rate. The maximum workload attained was 10 METs. At rest, there were no ST or T-wave changes noted to suggest ischemia. At peak exercise, upsloping ST changes were noted, which did not meet the criteria for ischemia. No clinical angina was noted. The test was terminated due to leg fatigue. The resting blood pressure was 148/96. The peak blood pressure is160/72. No clinical angina was noted. MYOCARDIAL PERFUSION PROTOCOL: 11.9 mCi of sestamibi was injected at rest. The patient exercised according to a regular Chava protocol for 8 minutes, attaining 10.1 METs. At peak exercise, 34.1 mCi of sestamibi was injected. Stress images were obtained. Stress and rest images were reconstructed and compared in the short axis, vertical long and horizontal long axes. Gated images were also obtained. PERFUSION SPECT ANALYSIS: Review of the images demonstrated normal uptake of tracer noted in all areas of the myocardium. The resting images similarly demonstrated normal uptake of tracer noted in all areas of the myocardium. No areas of reversibility are noted to suggest ischemia. No previous infarct is noted. GATED SPECT ANALYSIS: The gated ejection fraction is noted to be 72%. CONCLUSION: 1. Exercise myocardial perfusion stress test with no evidence of ischemia at a high workload. 2. Preserved ejection fraction. 3. No clinical angina noted. 4. No arrhythmias present. Assessment and Plan Assessment and Plan (1) Essential (primary) hypertension: Status: Chronic Orders: Orders Echo Complete Today I25.10 - Atherosclerotic heart disease of [place] coronary artery without angina pectoris Plan 1. Essential (primary) hypertension: - Currently well-controlled with multiple antihypertensive agents (metoprolol, losartan, amlodipine). - No adjustments made to existing medication regimen. - Ordered echocardiogram to evaluate left ventricular wall thickness and overallcardiac function given prolonged antihypertensive therapy. - No stress test indicated at this time in the absence of significant coronary artery disease or symptoms. - Instructed patient to follow up in one year or sooner if symptoms such as chest pain, worsening edema, or significant blood pressure changes occur. 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 Tab Dewitt MD ~ [place] [employer] Work Phone: [phone] 364-504809-08-2025 History of Present illness Narrative* Heraclio Kay MD - 11/21/2024 12:40 PM EDT Images from the original note were not included. [facility] [address] [facility] [address] [facility] [address] Dept: [phone] Dept Loc: [phone] Heraclio Kay MD CHIEF COMPLAINT: Chief Complaint Patient presents with Follow-up Sleeping Problem Memory Loss HISTORY OF PRESENT ILLNESS: The patient is a 78 y.o. person who returns for dizziness. He denies dizziness and denies falls. I reviewed the MRI brain and discussed cerebrovascular disease. Ask informant to rate the patient's ability using the following scoring system: Dependent= 3 Requires Assistance= 2 Has difficulty but does by self= 1 Normal= 0 Never did the activity but could do now= 0 Never did and would have difficulty now= 1 Score Writing checks, paying bills, balancing checkbook 3 Assembling tax records, business affairs, or papers 3 Shopping alone for clothes, household necessities or groceries 0 Playing a game of skill, working on a hobby 0 Heating water, making a cup of coffee turning off stove after use 0 Preparing a balanced meal 0 Keeping track of current events 0 Paying attention to, understanding, discussing TV, book, magazine 0 Remembering appointments, family occasions, holidays, medications 3 Traveling out of neighborhood, driving, arranging to take a bus 0 Total Score 9 Evaluation Sum scores (range 0-30). Cut-point of 9 (dependent in 3 or more activities) is recommended to indicate impaired function and possible cognitive impairment. He reports that he has not been wearing his mask at night. He reports that he feels that his sleep quality is good. Lon Dior 05/27/2024 - 07/25/2024 : 2026 Age: 1 years [place] [id number] [facility], [address] [facility], [id number] Email: Compliance ReportCompliance Payor Standard Usage 05/27/2024 - 07/25/2024 Usage days 3/60 days (5%) >= 4 hours 0 days (0%) < 4 hours 3 days (5%) Usage hours 2 hours 4 minutes Average usage (total days) 2 minutesAverage usage (days used) 41 minutes Median usage (days used) 55 minutes Total used hours (value since last reset - 07/25/2024) 2 hours AirSense 10 AutoSet Serial number [id number] Mode AutoSet Min Pressure 4 cmH2O Max Pressure 15 cmH2O EPR Fulltime EPR level 3 Response Standard Therapy Pressure -cmH2O Median: 2.7 95th percentile: 2.8 Maximum: 4.3 Leaks - L/min Median: 0.0 95th percentile: 5.2 Maximum: 40.8 Events per hour AI: 0.3 HI: 0.0 AHI: 0.3 Apnea Index Central: 0.0 Obstructive: 0.0 Unknown: 0.3 RERA Index 0.0 Shawn-La respiration (average duration per night) 0 minutes (0%) Past Medical History: has a past medical history of GERD (gastroesophageal reflux disease), Hypertension, and Parkinson'sdisease (HCC). Past Surgical History: has a past surgical history that includes Skin surgery (03/2022) and Gallbladder surgery. Medications: Current Outpatient Medications: amLODIPine (Norvasc) 10 MG tablet, Take 10 mg by mouth daily., Disp: , Rfl: aspirin 81 MG EC tablet, Take 81 mg by mouth daily., Disp: , Rfl: carbidopa-levodopa (Sinemet) 25-100 MG tablet, Take 1 tablet by mouth 3 times daily., Disp: 270 tablet, Rfl: 3 losartan (Cozaar) 100 MG tablet, TAKE 1 TABLET BY MOUTH OINCE A DAY, Disp: , Rfl: metoprolol succinate XL (Toprol-XL) 50 MG 24 hr tablet, Take 50 mg by mouth daily., Disp: , Rfl: omeprazole (PriLOSEC) [address] capsule, TAKE 1 CAPSULE BY MOUTH ON THURSDAY, THURSDAY, AND THURSDAY, Disp: , Rfl: tamsulosin (Flomax) 0.4 MG 24 hr capsule, TAKE 1 CAPSULE BY MOUTH EVERY DAY AT SUPPER TIME. STOP DOXAZOSIN, Disp: , Rfl: doxazosin (Cardura) 2 MG tablet, Take 2 mg by mouth Nightly., Disp: , Rfl: Allergies: Simvastatin, Hydrochlorothiazide, and Iodine Social History: Social History Socioeconomic History Marital status: Spouse name: Not on file Number of children: Not on file Years of education: Not on file Highest education level: Not on file Occupational History Not on file Tobacco Use Smoking status: Former Types: Pipe, Cigars Smokeless tobacco: Former Substance and Sexual Activity Alcohol use: Not Currently Drug use: Never Sexual activity: Yes Partners: Female Other Topics Concern Not on file Social History Narrative Not on file Social Drivers of Health Financial Resource Strain: Not on file Food Insecurity: Not on file Transportation Needs: Not on file Physical Activity: Not on file Stress: Not on file Social Connections: Not on file Intimate Partner Violence: Not on file Housing Stability: Not on file Family History: Family History Problem Relation Name Age of Onset Heart attack Mother Colon cancer Father Aneurysm Sister Alcohol abuse Sister Cancer Brother REVIEW OF SYSTEMS: Review of Systems Constitutional: Negative for appetite change, chills, diaphoresis, fever and unexpected weight change. HENT: Negative for dental problem and mouth sores. Eyes: Negative for discharge and itching. Respiratory: Negative for chest tightness. Cardiovascular: Negative for chest pain and leg swelling. Gastrointestinal: Negative for rectal pain and vomiting. Endocrine: Negative for polydipsia, polyphagia and polyuria. Genitourinary: Negative for decreased urine volume, flank pain and genital sores. Musculoskeletal: Negative for arthralgias. Skin: Negative for color change. Allergic/Immunologic: Negative for food allergies and immunocompromised state. Neurological: Positive for tremors. Memory loss Hematological: Negative for adenopathy. Does not bruise/bleed easily. Psychiatric/Behavioral: Negative for agitation, behavioral problems, decreased concentration, sleepdisturbance and suicidal ideas. PHYSICAL EXAM: Vitals: BP 111/76 (BP Location: Left arm, Patient Position: Sitting, BP Cuff Size: Adult) Pulse 80 Ht 5' 9" (1.753 m) Wt 217 lb 12.8 oz (98.8 kg) BMI 32.16 kg/m General Appearance: Patient is in no apparent distress. Head is normocephalic, atraumatic Cardiovascular: Regular rate and rhythm. No heart murmurs. No carotid bruit Neurologic: Mentation: Alert and oriented x 3 to person, place and time. Speech and Language: Speech and language normal Concentration and Attention: Concentration normal Memory: Memory 3/3 mimmed, 1/3 short Fund of Knowledge: Fund of knowledge normal Cranial Nerves: II, III, IV, V, , VII, VIII, IX, X, XI, XII tested and were intact including fundoscopic exam (optic discs) and visual field to confrontation. Motor: Strength:Strength 5 out of 5 with normal tone Alternating Movements: Normal today Cogwheel Rigidity: None Tone: Tone is normal Tremor / Involuntary Movements: None Deep Tendon Reflexes: 1 out of 4 symmetrical in all four limbs. Coordination: Normal coordination upper and lower extremities Gait and Station: Station is normal. Gait is mildly abnormal. Better strides. Did veer to the right, but otherwise better than before. DATA Narrative & Impression [facility] 1945 [id number] Exam Date/Time: 05/20/2024 09:10 Procedure: MR BRAIN WO CONTRAST Ordering Provider: KAY JAMES Reason For Exam: Mental status change, unknown cause EXAMINATION: MR BRAIN WO CONTRAST HISTORY: Mild cognitive impairment and memory loss. Vertigo. TECHNIQUE: Multiplanar, multisequence MRI of the brain was performed without contrast. COMPARISON: None. RESULT: Acute Change: Diffusion-weighted hyperintensity of the ventral medulla without ADC hypointensity isprobably artifactual related to T2 shine through. No true restricted diffusion to suggest an acute infarct. Hemorrhage: No evidence of prior parenchymal hemorrhage on the gradient echo images. Mass Lesion/ Mass Effect: No evidence of an intracranial mass or extra-axial fluid collection. No significant mass effect. Chronic Change: Scattered patchy and confluent areas of increased T2 and FLAIR signal are present in the supratentorial white matter which is nonspecific but likely represents chronic microvascular ischemia. Prominent perivascular spaces of the basal ganglia (Etat crible). Parenchyma: 0.9 x 0.5 cm (TV x AP) T2/FLAIR hyperintensity of the ventral medulla in the location of the pyramids and olivary nuclei is nonspecific. No significant volume expansion or volume loss. Unremarkable appearance of the bilateral dentate nuclei and red nuclei. There is moderate generalized p arenchymal volume loss. Ventricles: Mild ventriculomegaly corresponds to the degree of parenchymal volume loss. Skull Base: Hypothalamic and pituitary region are grossly normal. Craniocervical junction is normal. No significant marrow replacement process. Vasculature: Major intracranial arterial structures, and dural venous sinuses show typical flow void, suggesting patency by spin echo criteria. Other: Mucosal thickening, hyperostosis and opacification of the left maxillary sinus. The visualized paranasal sinuses and mastoid air cells are clear. The orbits and extracranial soft tissues are unremarkable. IMPRESSION: No acute intracranial abnormality. Nonspecific T2/FLAIR hyperintensity of the ventral medulla. Differential considerations may includesequelae of hypertrophic olivary degeneration, demyelination, ischemic changes among other less likely etiologies such as vascular structure. Neoplasm is considered unlikely. Correlate with history and symptoms. Further evaluation with contrast-enhanced study may be considered. Shireen rest ischemia and generalized parenchymal volume loss. Report Dictated on Electronically Signed By: Chan Egan MD Electronically Signed Date/Time: 05/20/2024 12:15 PM EST ASSESSMENT AND PLAN: Diagnosis Plan 1. CARLY (obstructive sleep apnea) 2. Mild cognitive impairment with memory loss 3. Parkinson's disease without dyskinesia or fluctuating manifestations (HCC) He was encouraged to wear his mask at night. He is stable will follow. He is better today than prior exams. I spent 30 minutes caring for this patient today, reviewing labs and records, seeing the patient, documenting in the record and arranging for studies. documented in this [place]09-08-2025 Miscellaneous Notes* Addendum Note - Heraclio Kay MD - 11/21/2024 12:40 PM EDTAddended by: HERACLIO KAY on: 11/21/2024 01:04 PM Modules accepted: Orders documented in this encounterSWVUMedicine [facility] [id number] Note* Addendum Note - Heraclio Kay MD - 11/21/2024 12:40 PM EDTAddended by: HERACLIO KAY on: 11/21/2024 01:04 PM Modules accepted: Orders [id number] Note* Addendum Note - Heraclio Kay MD - 11/21/2024 12:40 PM EDTAddended by: HERACLIO KAY on: 11/21/2024 01:04 PM Modules accepted: Orders [id number] History of Present illness Narrative* Heraclio Kay MD - 09/07/2024 1:00 PM EDT Images from the original note were not included. [facility] [address] [facility] [address] [facility] [address] Dept: [phone] Dept Loc: [phone] Heraclio Kay MD CHIEF COMPLAINT: Chief Complaint Patient presents with Follow-up Parkinson's Disease HISTORY OF PRESENT ILLNESS: The patient is a 78 y.o. person who returns for dizziness. He denies dizziness and denies falls. Hehas to be careful on steps/stairs. Mild tremor. He is tolerating the medicine. The patient reports excessive daytime sleepiness. He has not had the sleep apnea testing yet He is sleeping 12 hours and still needing naps. Snoring?Yes Tired? (Tired, Fatigued, or Sleepy during the daytime) Yes Observed? (Stop Breathing or Choking/Gasping during your sleep)Yes Pressure? (High blood pressure meds?) Yes Body Mass Index is 28 or greater?Yes Age greater than 50? Yes Neck size (Men >17 in, Women >16 in)Yes Gender Male?Yes STOP BANG score 8 I reviewed the MRI brain and discussed cerebrovascular disease. Ask informant to rate the patient's ability using the following scoring system: Dependent= 3 Requires Assistance= 2 Has difficulty but does by self= 1 Normal= 0 Never did the activity but could do now= 0 Never did and would have difficulty now= 1 Score Writing checks, paying bills, balancing checkbook 3 Assembling tax records, business affairs, or papers 3 Shopping alone for clothes, household necessities or groceries 0 Playing a game of skill, working on a hobby 0 Heating water, making a cup of coffee turning off stove after use 0 Preparing a balanced meal 0 Keeping track of current events 0 Paying attention to, understanding, discussing TV, book, magazine 0 Remembering appointments, family occasions, holidays, medications 3 Traveling out of neighborhood, driving, arranging to take a bus 0 Total Score 9 Evaluation Sum scores (range 0-30). Cut-point of 9 (dependent in 3 or more activities) is recommended to indicate impaired function and possible cognitive impairment. Past Medical History: has a past medical history of GERD (gastroesophageal reflux disease), Hypertension, and Parkinson'sdisease (HCC). Past Surgical History: has a past surgical history that includes Skin surgery (03/2022) and Gallbladder surgery. Medications: Current Outpatient Medications: amLODIPine (Norvasc) 10 MG tablet, Take 10 mg by mouth daily., Disp: , Rfl: aspirin 81 MG EC tablet, Take 81 mg by mouth daily., Disp: , Rfl: carbidopa-levodopa (Sinemet) 25-100 MG tablet, Take 1 tablet by mouth 3 times daily., Disp: 270 tablet, Rfl: 3 losartan (Cozaar) 100 MG tablet, TAKE 1 TABLET BY MOUTH OINCE A DAY, Disp: , Rfl: metoprolol succinate XL (Toprol-XL) 50 MG 24 hr tablet, Take 50 mg by mouth daily., Disp: , Rfl: omeprazole (PriLOSEC) [address] capsule, TAKE 1 CAPSULE BY MOUTH ON THURSDAY, THURSDAY, AND THURSDAY, Disp: , Rfl: tamsulosin (Flomax) 0.4 MG 24 hr capsule, TAKE 1 CAPSULE BY MOUTH EVERY DAY AT SUPPER TIME. STOP DOXAZOSIN, Disp: , Rfl: doxazosin (Cardura) 2 MG tablet, Take 2 mg by mouth Nightly., Disp: , Rfl: Allergies: Simvastatin, Hydrochlorothiazide, and Iodine Social History: Social History Socioeconomic History Marital status: Spouse name: Not on file Number of children: Not on file Years of education: Not on file Highest education level: Not on file Occupational History Not on file Tobacco Use Smoking status: Former Types: Pipe, Cigars Smokeless tobacco: Former Substance and Sexual Activity Alcohol use: Not Currently Drug use: Never Sexual activity: Yes Partners: Female Other Topics Concern Not on file Social History Narrative Not on file Social Drivers of Health Financial Resource Strain: Not on file Food Insecurity: Not on file Transportation Needs: Not on file Physical Activity: Not on file Stress: Not on file Social Connections: Not on file Intimate Partner Violence: Not on file Housing Stability: Not on file Family History: Family History Problem Relation Name Age of Onset Heart attack Mother Colon cancer Father Aneurysm Sister Alcohol abuse Sister Cancer Brother REVIEW OF SYSTEMS: Review of Systems Constitutional: Negative for appetite change, chills, diaphoresis, fever and unexpected weight change. HENT: Negative for dental problem and mouth sores. Eyes: Negative for discharge and itching. Respiratory: Negative for chest tightness. Cardiovascular: Negative for chest pain and leg swelling. Gastrointestinal: Negative for rectal pain and vomiting. Endocrine: Negative for polydipsia, polyphagia and polyuria. Genitourinary: Negative for decreased urine volume, flank pain and genital sores. Musculoskeletal: Negative for arthralgias. Skin: Negative for color change. Allergic/Immunologic: Negative for food allergies and immunocompromised state. Neurological: Positive for tremors. Memory loss Hematological: Negative for adenopathy. Does not bruise/bleed easily. Psychiatric/Behavioral: Negative for agitation, behavioral problems, decreased concentration, sleepdisturbance and suicidal ideas. PHYSICAL EXAM: Vitals: BP (!) 142/82 (BP Location: Right arm, Patient Position: Sitting, BP Cuff Size: Large adult) Pulse 73 Ht 5' 9" (1.753 m) Wt 220 lb 9.6 oz (100 kg) BMI 32.58 kg/m General Appearance: Patient is in no apparent distress. Head is normocephalic, atraumatic Cardiovascular: Regular rate and rhythm. No heart murmurs. No carotid bruit Neurologic: Mentation: Alert and oriented x 3 to person, place and time. Speech and Language: Speech and language normal Concentration and Attention: Concentration normal Memory: Memory 3/3 mimmed, 1/3 short Fund of Knowledge: Fund of knowledge normal Cranial Nerves: II, III, IV, V, , VII, VIII, IX, X, XI, XII tested and were intact including fundoscopic exam (optic discs) and visual field to confrontation. Motor: Strength:Strength 5 out of 5 with normal tone Alternating Movements: Mild and still worse on the left Cogwheel Rigidity: slight on left Tone: Tone is normal Tremor / Involuntary Movements: None Deep Tendon Reflexes: 1 out of 4 symmetrical in all four limbs. Coordination: Normal coordination upper and lower extremities Gait and Station: Station is normal. Gait is mildly abnormal. Not stooping but small steps DATA Narrative & Impression Patient Name: LON DIOR : 1945 Exam Date/Time: 05/20/2024 09:10 Procedure: MR BRAIN WO CONTRAST Ordering Provider: KAY JAMES Reason For Exam: Mental status change, unknown cause EXAMINATION: MR BRAIN WO CONTRAST HISTORY: Mild cognitive impairment and memory loss. Vertigo. TECHNIQUE: Multiplanar, multisequence MRI of the brain was performed without contrast. COMPARISON: None. RESULT: Acute Change: Diffusion-weighted hyperintensity of the ventral medulla without ADC hypointensity isprobably artifactual related to T2 shine through. No true restricted diffusion to suggest an acute infarct. Hemorrhage: No evidence of prior parenchymal hemorrhage on the gradient echo images. Mass Lesion/ Mass Effect: No evidence of an intracranial mass or extra-axial fluid collection. No significant mass effect. Chronic Change: Scattered patchy and confluent areas of increased T2 and FLAIR signal are present in the supratentorial white matter which is nonspecific but likely represents chronic microvascular ischemia. Prominent perivascular spaces of the basal ganglia (Etat crible). Parenchyma: 0.9 x 0.5 cm (TV x AP) T2/FLAIR hyperintensity of the ventral medulla in the location of the pyramids and olivary nuclei is nonspecific. No significant volume expansion or volume loss. Unremarkable appearance of the bilateral dentate nuclei and red nuclei. There is moderate generalized p arenchymal volume loss. Ventricles: Mild ventriculomegaly corresponds to the degree of parenchymal volume loss. Skull Base: Hypothalamic and pituitary region are grossly normal. Craniocervical junction is normal. No significant marrow replacement process. Vasculature: Major intracranial arterial structures, and dural venous sinuses show typical flow void, suggesting patency by spin echo criteria. Other: Mucosal thickening, hyperostosis and opacification of the left maxillary sinus. The visualized paranasal sinuses and mastoid air cells are clear. The orbits and extracranial soft tissues are unremarkable. IMPRESSION: No acute intracranial abnormality. Nonspecific T2/FLAIR hyperintensity of the ventral medulla. Differential considerations may includesequelae of hypertrophic olivary degeneration, demyelination, ischemic changes among other less likely etiologies such as vascular structure. Neoplasm is considered unlikely. Correlate with history and symptoms. Further evaluation with contrast-enhanced study may be considered. [place] rest ischemia and generalized parenchymal volume loss. Report Dictated on Electronically Signed By: Chan Egan MD Electronically Signed Date/Time: 05/20/2024 12:15 PM EST ASSESSMENT AND PLAN: Diagnosis Plan 1. CARLY (obstructive sleep apnea) 2. Mild cognitive impairment with memory loss 3. Parkinson's disease without dyskinesia or fluctuating manifestations (HCC) He has the auto-PAP and was encouraged to try it. We discussed donepezil. He wants to hold off for now. It is medically necessary for him to get blood biomarker testing for Alzheimer's disease to see if he is a candidate for Leqembi or Kisunla. Continue to use the carb-levo. I spent 30 minutes caring for this patient today, reviewing labs and records, seeing the patient, documenting in the record and arranging for studies. documented in this [place]06-25-2025 Instructions* Patient Instructions* Heraclio Kay MD - 09/07/2024 1:00 PM EDT Please check with your insurance about the Alzheimer's disease blood biomarkers. If they say the will cover it if I say it is medically necessary, then go ahead and get the blood work drawn at a [facility]. documented in this [place] [id number] Telephone encounter Note* Telephone Encounter - Shavonne Babita Can - 07/08/2024 2:37 PM EDT Hello! Spoke with patients Zahra, they would like to cancel patients CPAP test that is scheduled for 07/16/24 at [place] and they do not wish to reschedule at this time. Just wanted to relay the information. [facility] [id number] Miscellaneous Notes* Telephone Encounter - Shavonne Harris Pamella - 07/08/2024 2:37 PM EDT Hello! Spoke with patients Zahra, they would like to cancel patients CPAP test that is scheduled for 07/16/24 at [place] and they do not wish to reschedule at this time. Just wanted to relay the information. [facility] documented in this [place] [id number] Telephone encounter Note* Telephone Encounter - Jose Cabrales LPN - 07/06/2024 4:18 PM EDT Call to patient's spouse. Spouse notified and verbalized understanding. [id number] Miscellaneous Notes* Telephone Encounter - Jose Cabrales LPN - 07/06/2024 4:18 PM EDT Call to patient's spouse. Spouse notified and verbalized understanding. * Telephone Encounter - Heraclio Kay MD - 07/06/2024 4:02 PM EDT I did not order oxygen as we do not typically give oxygen with the PAP therapy. We can test his oxygen with the mask on after he has been wearing it through the night and see if he needs additional oxygen but most patients do not need oxygen with PAP therapy. * Telephone Encounter - Cesario Lopes - 07/06/2024 1:32 PM EDT Name of caller: Zahra Contact phone number: [phone] Relationship to Patient: spouse/SO Provider: Dr. Kay Practice: [facility] Chief Complaint/Reason for Call: Zahra states she was advised by [facility] that they don't provideoxygen for the test. Zahra states she wants to make sure that the order for the patient was with oxygen. Please review. Best time of day caller can be reached: any Patient advised that office/PCP has 24-48 business hours to return their call: Yes * Telephone Encounter - Stacy Alcocer MA - 07/06/2024 7:29 AM EDT Order faxed * Telephone Encounter - Heraclio Kay MD - 07/05/2024 5:34 PM EDT Fax the order to [facility] [phone] * Telephone Encounter - Lisa Daugherty - 07/05/2024 2:22 PM EDT [facility] is out of network with patient's insurance Where would you like his CPAP order be sent? documented in this [place]04-23-2025 Telephone encounter Note* Telephone Encounter - Heraclio Kay MD - 07/06/2024 4:02 PM EDT I did not order oxygen as we do not typically give oxygen with the PAP therapy. We can test his oxygen with the mask on after he has been wearing it through the night and see if he needs additional oxygen but most patients do not need oxygen with PAP therapy. [id number] Telephone encounter Note* Telephone Encounter - Cesario Lopes - 07/06/2024 1:32 PM EDT Name of caller: Zahra Contact phone number: [phone] Relationship to Patient: spouse/SO Provider: Dr. Kay Practice: [facility] Chief Complaint/Reason for Call: Zahra states she was advised by [facility] that they don't provideoxygen for the test. Zahra states she wants to make sure that the order for the patient was with oxygen. Please review. Best time of day caller can be reached: any Patient advised that office/PCP has 24-48 business hours to return their call: Yes [facility] [id number] Miscellaneous Notes* Telephone Encounter - Cesario Lopes - 07/06/2024 1:32 PM EDT Name of caller: Zahra Contact phone number: [phone] Relationship to Patient: spouse/SO Provider: Dr. Kay Practice: [facility] Chief Complaint/Reason for Call: Zahra states she was advised by [facility] that they don't provideoxygen for the test. Zahra states she wants to make sure that the order for the patient was with oxygen. Please review. Best time of day caller can be reached: any Patient advised that office/PCP has 24-48 business hours to return their call: Yes * Telephone Encounter - Stacy Alcocer MA - 07/06/2024 7:29 AM EDT Order faxed * Telephone Encounter - Heraclio Kay MD - 07/05/2024 5:34 PM EDT Fax the order to [facility] [phone] * Telephone Encounter - Lisa Sufernando - 07/05/2024 2:22 PM EDT [facility] is out of network with patient's insurance Where would you like his CPAP order be sent? documented in this encounterSWVUMed[facility] [id number] Telephone encounter Note* Telephone Encounter - Stacy Alcocer MA - 07/06/2024 7:29 AM EDT [id number] Telephone encounter Note* Telephone Encounter - Heraclio Kay MD - 07/05/2024 5:34 PM EDT Fax the order to [facility] [phone] [id number] Miscellaneous Notes* Telephone Encounter - Heraclio Kay MD - 07/05/2024 5:34 PM EDT Fax the order to [facility] [phone] * Telephone Encounter - Lisa Daugherty - 07/05/2024 2:22 PM EDT Edu [facility] is out of network with patient's insurance Where would you like his CPAP order be sent? documented in this [place] [id number] Telephone encounter Note* Telephone Encounter - Lisa Daugherty - 07/05/2024 2:22 PM EDT [facility] is out of network with patient's insurance Where would you like his CPAP order be sent? [id number] Telephone encounter Note* Telephone Encounter - Stacy Alcocer MA - 07/05/2024 8:43 AM EDT [address]ax[address] over [id number] Miscellaneous Notes* Telephone Encounter - Stacy Alcocer MA - 07/05/2024 8:43 AM EDT Faxed over * Telephone Encounter - Heraclio Kay MD - 07/05/2024 8:32 AM EDT Please fax the CPAP order to [facility] in [place] with his HOME SLEEP TEST. Tell the sleep lab to cancel the PAP titration study as we are going to try auto-PAP as the patient is anxious about beingin the sleep lab. documented in this [address]22-2025 Telephone encounter Note* Telephone Encounter - Heraclio Kay MD - 07/05/2024 8:32 AM EDT Please fax the CPAP order to [facility] in [place] with his HOME SLEEP TEST. Tell the sleep lab to cancel the PAP titration study as we are going to try auto-PAP as the patient is anxious about beingin the sleep lab. [facility]hkdpl90-21-2985 Telephone encounter Note* Telephone Encounter - Tiffany Tran MA - 06/20/2024 1:21 PM EDT Spoke with zahra and answered all questions [facility] [id number] Miscellaneous Notes* Telephone Encounter - Tiffany Tran MA - 06/20/2024 1:21 PM EDT Spoke with zahra and answered all questions * Telephone Encounter - Katarzyna Hernandez - 06/20/2024 1:09 PM EDT Name of caller: Zahra Contact phone number: [phone] Relationship to Patient: spouse/SO Provider: Dr. Kay Practice: Neurology Chief Complaint/Reason for Call: Zahra called advising she was returning a voicemail. [facility] read per verbatim notes from Dr. Kay and Zahra understood. Zahra advised if machine will be delivered to home or will they need to pick it up at the clinic. Please call Zahra back and advise. Best time of day caller can be reached: any Patient advised that office/PCP has 24-48 business hours to return their call: Yes * Telephone Encounter - Stacy Alcocer MA - 06/20/2024 8:01 AM EDT Lm for patient to call the office back, please relay providers message. * Telephone Encounter - Heraclio Kay MD - 06/19/2024 12:30 PM EDT Please tell him that his home sleep test did show obstructive sleep apnea with severe drops in oxygen. I will order a CPAP titration to treat the sleep apnea. documented in this encounterSWVUMedicine [facility] Community HospitalAwpuik65-98-3922 Telephone encounter Note* Telephone Encounter - Katarzyna Hernandez - 06/20/2024 1:09 PM EDT Name of caller: Zahra Contact phone number: [phone] Relationship to Patient: spouse/SO Provider: Dr. Kay Practice: Neurology Chief Complaint/Reason for Call: Zahra called advising she was returning a voicemail. [facility] read per verbatim notes from Dr. Kay and Zahra understood. Zahra advised if machine will be delivered to home or will they need to pick it up at the clinic. Please call Zahra back and advise. Best time of day caller can be reached: any Patient advised that office/PCP has 24-48 business hours to return their call: Yes [place] [id number] Telephone encounter Note* Telephone Encounter - Stacy Alcocer MA - 06/20/2024 8:01 AM EDT Lm for patient to call the office back, please relay providers message. [facility] ColumbusQhqtab06-41-0801 Telephone encounter Note* Telephone Encounter - Heraclio Kay MD - 06/19/2024 12:30 PM EDT Please tell him that his home sleep test did show obstructive sleep apnea with severe drops in oxygen. I will order a CPAP titration to treat the sleep apnea. [place] [id number] Miscellaneous Notes* Telephone Encounter - Heraclio Kay MD - 06/19/2024 12:30 PM EDT Please tell him that his home sleep test did show obstructive sleep apnea with severe drops in oxygen. I will order a CPAP titration to treat the sleep apnea. documented in this [place]03-31-2025 Telephone encounter Note* Telephone Encounter - Tiffany Tran MA - 06/13/2024 8:01 AM EDT patient has been notified of providers message. [place] [id number] Miscellaneous Notes* Telephone Encounter - Tiffany Tran MA - 06/13/2024 8:01 AM EDT patient has been notified of providers message. * Telephone Encounter - Heraclio Kay MD - 06/10/2024 9:08 PM EDT Tell him that he only slept 2.5 hours during the sleep study and we need at least four hours for a reliable result. I am going to order a home sleep test to check for sleep apnea as he will likely sleep longer at home. He did not have any abnormal behaviors in his sleep or jerking of his legs in the lab. documented in this [place]03-28-2025 Telephone encounter Note* Telephone Encounter - Heraclio Kay MD - 06/10/2024 9:08 PM EDT Tell him that he only slept 2.5 hours during the sleep study and we need at least four hours for a reliable result. I am going to order a home sleep test to check for sleep apnea as he will likely sleep longer at home. He did not have any abnormal behaviors in his sleep or jerking of his legs in the lab. [place] [id number] Miscellaneous Notes* Telephone Encounter - Heraclio Kay MD - 06/10/2024 9:08 PM EDT Tell him that he only slept 2.5 hours during the sleep study and we need at least four hours for a reliable result. I am going to order a home sleep test to check for sleep apnea as he will likely sleep longer at home. He did not have any abnormal behaviors in his sleep or jerking of his legs in the lab. documented in this [place]03-05-2025 History of Present illness Narrative* Heraclio Kay MD - 05/18/2024 10:00 AM EST Images from the original note were not included. [facility] [address] [facility] [address] [facility] [address] Dept: [phone] Dept Loc: [phone] Heraclio Kay MD CHIEF COMPLAINT: Chief Complaint Patient presents with Follow-up Memory Loss HISTORY OF PRESENT ILLNESS: The patient is a 78 y.o. person who returns for dizziness. He denies dizziness and denies falls. Hehas to be careful on steps/stairs. The patient reports excessive daytime sleepiness. He has not had the sleep apnea testing yet He is sleeping 12 hours and still needing naps. Snoring?Yes Tired? (Tired, Fatigued, or Sleepy during the daytime) Yes Observed? (Stop Breathing or Choking/Gasping during your sleep)Yes Pressure? (High blood pressure meds?) Yes Body Mass Index is 28 or greater?Yes Age greater than 50? Yes Neck size (Men >17 in, Women >16 in)Yes Gender Male?Yes STOP BANG score 8 No hallucinations. Past Medical History: has a past medical history of GERD (gastroesophageal reflux disease), Hypertension, and Parkinson'sdisease (HCC). Past Surgical History: has a past surgical history that includes Skin surgery (03/2022) and Gallbladder surgery. Medications: Current Outpatient Medications: amLODIPine (Norvasc) 10 MG tablet, Take 10 mg by mouth daily., Disp: , Rfl: aspirin 81 MG EC tablet, Take 81 mg by mouth daily., Disp: , Rfl: carbidopa-levodopa (Sinemet) 25-100 MG tablet, Take 1 tablet by mouth 3 times daily., Disp: 270 tablet, Rfl: 3 doxazosin (Cardura) 2 MG tablet, Take 2 mg by mouth Nightly., Disp: , Rfl: losartan (Cozaar) 100 MG tablet, TAKE 1 TABLET BY MOUTH OINCE A DAY, Disp: , Rfl: metoprolol succinate XL (Toprol-XL) 50 MG 24 hr tablet, Take 50 mg by mouth daily., Disp: , Rfl: omeprazole (PriLOSEC) [address] capsule, TAKE 1 CAPSULE BY MOUTH ON THURSDAY, THURSDAY, AND THURSDAY, Disp: , Rfl: tamsulosin (Flomax) 0.4 MG 24 hr capsule, TAKE 1 CAPSULE BY MOUTH EVERY DAY AT SUPPER TIME. STOP DOXAZOSIN, Disp: , Rfl: Allergies: Simvastatin, Hydrochlorothiazide, and Iodine Social History: Social History Socioeconomic History Marital status: Spouse name: Not on file Number of children: Not on file Years of education: Not on file Highest education level: Not on file Occupational History Not on file Tobacco Use Smoking status: Former Types: Pipe, Cigars Smokeless tobacco: Former Substance and Sexual Activity Alcohol use: Not Currently Drug use: Never Sexual activity: Yes Partners: Female Other Topics Concern Not on file Social History Narrative Not on file Social Drivers of Health Financial Resource Strain: Not on file Food Insecurity: Not on file Transportation Needs: Not on file Physical Activity: Not on file Stress: Not on file Social Connections: Not on file Intimate Partner Violence: Not on file Housing Stability: Not on file Family History: Family History Problem Relation Name Age of Onset Heart attack Mother Colon cancer Father Aneurysm Sister Alcohol abuse Sister Cancer Brother REVIEW OF SYSTEMS: Review of Systems Constitutional: Negative for appetite change, chills, diaphoresis, fever and unexpected weight change. HENT: Negative for dental problem and mouth sores. Eyes: Negative for discharge and itching. Respiratory: Negative for chest tightness. Cardiovascular: Negative for chest pain and leg swelling. Gastrointestinal: Negative for rectal pain and vomiting. Endocrine: Negative for polydipsia, polyphagia and polyuria. Genitourinary: Negative for decreased urine volume, flank pain and genital sores. Musculoskeletal: Negative for arthralgias. Skin: Negative for color change. Allergic/Immunologic: Negative for food allergies and immunocompromised state. Neurological: Positive for tremors. Memory loss Hematological: Negative for adenopathy. Does not bruise/bleed easily. Psychiatric/Behavioral: Negative for agitation, behavioral problems, decreased concentration, sleepdisturbance and suicidal ideas. PHYSICAL EXAM: Vitals: BP (!) 152/83 (BP Location: Left arm, Patient Position: Sitting, BP Cuff Size: Adult) Pulse 69 Ht 5' 9" (1.753 m) Wt 221 lb 10.1 oz (101 kg) BMI 32.73 kg/m General Appearance: Patient is in no apparent distress. Head is normocephalic, atraumatic Cardiovascular: Regular rate and rhythm. No heart murmurs. No carotid bruit Neurologic:MMSE 23/30 Mentation: Alert and oriented x 3 to person, place and time. Speech and Language: Speech and language normal Concentration and Attention: Concentration normal Memory: Memory 3/3 mimmed, 1/3 short Fund of Knowledge: Fund of knowledge normal Cranial Nerves: II, III, IV, V, , VII, VIII, IX, X, XI, XII tested and were intact including fundoscopic exam (optic discs) and visual field to confrontation. Motor: Strength:Strength 5 out of 5 with normal tone Alternating Movements: Mild and still worse on the left Cogwheel Rigidity: slight on left Tone: Tone is normal Tremor / Involuntary Movements: None Deep Tendon Reflexes: 1 out of 4 symmetrical in all four limbs. Coordination: Normal coordination upper and lower extremities Gait and Station: Station is normal. Gait is mildly abnormal. Not stooping but small steps DATA ASSESSMENT AND PLAN: Diagnosis Plan 1. Parkinson's disease without dyskinesia or fluctuating manifestations (HCC) 2. Mild cognitive impairment with memory loss TSH Vitamin B6 Vitamin B12 Vitamin B1 ([facility]) TSH Vitamin B6 Vitamin B12 Vitamin B1 ([facility]) 3. Obstructive sleep apnea Polysomnography 4. Vertigo He is doing well with carb-levo TID. NEW ISSUE. MRI brain wo for strokes or cerebral microhemorrhages causing the new memory decline. Heis to get blood work for causes of memory loss. He is to get PSG for CARLY which could be a cause. PSG. STOP BANG score 8. MRI but for now he is fine. I spent 30 minutes caring for this patient today, reviewing labs and records, seeing the patient, documenting in the record and arranging for studies. documented in this [place]12-03-2024 History of Present illness Narrative* Heraclio Kay MD - 02/16/2024 3:20 PM EST Images from the original note were not included. [place] [address] [address] [facility] [address] [facility] [address] Dept: [phone] Dept Loc: [phone] Patient was seen today via Telehealth by agreement and consent. I used the following Telehealth technology: Audio and video capabilities. Patient location: Patient Location: Home. This patient encounter is appropriate and reasonable under the circumstances: too sick to leave home . The patient has been advised of the potential risks and limitations of this mode of treatment (including but not limited to the absence of in-person examination) and has agreed to be treated in a remote fashion inspite of them. Any and all of the patient's/patient's family's questions on this issue have been answered and I have made no promises or guarantees to the patient. The patient has also been advised to contact this office for worsening conditions or problems, and seek emergency medical treatment and/or call 911 if the patient deems either necessary. The patient stated that they are currently in the [facility]. If the patient is a minor, permission has been obtained by the parent or guardian for the patient to receive medical care at this visit. Visit type: Established patient Reason for Visit: Follow-up Assessment and Plan 1. Parkinson's disease without dyskinesia or fluctuating manifestations (HCC) 2. Obstructive sleep apnea 3. Vertigo - External referral to Physical Therapy No follow-ups on file. Subjective HPI: The patient is a 78 y.o. person who returns early for dizziness. He reports that he has had this before and Dr. Burkett, ENT in [place], would perform Jarod maneuvers to treat this. He reports that his tremor in his left hand dominant hand. He has not had another fall since the last time. His reports that he is doing better with caridopa-levodopa. The patient reports excessive daytime sleepiness. He has not had the sleep apnea testing yet He is sleeping 12 hours and still needing. Snoring?Yes Tired? (Tired, Fatigued, or Sleepy during the daytime) Yes Observed? (Stop Breathing or Choking/Gasping during your sleep)No Pressure? (High blood pressure meds?) Yes Body Mass Index is 28 or greater?Yes Age greater than 50? Yes Neck size (Men >17 in, Women >16 in)Yes Gender Male?Yes STOP BANG score 7 REVIEW OF SYSTEMS: Review of Systems Constitutional: Negative for appetite change, chills, diaphoresis, fever and unexpected weight change. HENT: Negative for dental problem and mouth sores. Eyes: Negative for discharge and itching. Respiratory: Negative for chest tightness. Cardiovascular: Negative for chest pain and leg swelling. Gastrointestinal: Negative for rectal pain and vomiting. Endocrine: Negative for polydipsia, polyphagia and polyuria. Genitourinary: Negative for decreased urine volume, flank pain and genital sores. Musculoskeletal: Negative for arthralgias. Skin: Negative for color change. Allergic/Immunologic: Negative for food allergies and immunocompromised state. Neurological: Positive for dizziness and tremors. Hematological: Negative for adenopathy. Does not bruise/bleed easily. Psychiatric/Behavioral: Negative for agitation, behavioral problems, decreased concentration, sleepdisturbance and suicidal ideas. Allergies Allergen Reactions Simvastatin Other reaction(s): elevated liver enzymes, Very elevated liver enzymes Hydrochlorothiazide Other reaction(s): fatigue Iodine Other reaction(s): life threatening, pt not allergic to iodine, but brother is. Current Outpatient Medications: amLODIPine (Norvasc) 10 MG tablet, Take 10 mg by mouth daily., Disp: , Rfl: aspirin 81 MG EC tablet, Take 81 mg by mouth daily., Disp: , Rfl: carbidopa-levodopa (Sinemet) 25-100 MG tablet, Take 1 tablet by mouth 3 times daily., Disp: 270 tablet, Rfl: 3 losartan (Cozaar) 100 MG tablet, TAKE 1 TABLET BY MOUTH OINCE A DAY, Disp: , Rfl: metoprolol succinate XL (Toprol-XL) 50 MG 24 hr tablet, Take 50 mg by mouth daily., Disp: , Rfl: omeprazole (PriLOSEC) [address] capsule, TAKE 1 CAPSULE BY MOUTH ON THURSDAY, THURSDAY, AND THURSDAY, Disp: , Rfl: tamsulosin (Flomax) 0.4 MG 24 hr capsule, TAKE 1 CAPSULE BY MOUTH EVERY DAY AT SUPPER TIME. STOP DOXAZOSIN, Disp: , Rfl: doxazosin (Cardura) 2 MG tablet, Take 2 mg by mouth Nightly., Disp: , Rfl: Past Medical History: Diagnosis Date GERD (gastroesophageal reflux disease) Hypertension Parkinson's disease (HCC) Social History Tobacco Use Smoking status: Former Types: Pipe, Cigars Smokeless tobacco: Former Substance Use Topics Alcohol use: Not Currently Past Surgical History: Procedure Laterality Date GALLBLADDER SURGERY SKIN SURGERY 03/2022 Family History Problem Relation Name Age of Onset Heart attack Mother Colon cancer Father Aneurysm Sister Alcohol abuse Sister Cancer Brother Objective Vitals: Ht 5' 9" (1.753 m) Wt 222 lb (101 kg) BMI 32.78 kg/m Neurologic: Mentation: Alert and oriented x 3 to person, place and time. Speech and Language: Speech and language normal Concentration and Attention: Concentration normal Memory: Memory normal Fund of Knowledge: Fund of knowledge normal He held the phone camera in his right hadn very stable, but the left had mild tremor. Data Reviewed and Summarized DIAGNOSTIC TESTING IMPRESSION and PLAN: Problem List Items Addressed This Visit None Visit Diagnoses Parkinson's disease without dyskinesia or fluctuating manifestations (HCC) - Primary Obstructive sleep apnea Vertigo Relevant Orders External referral to Physical Therapy He is better with the carb-levo.Will follow. He asked to hold off on the sleep study for now as he is feeling well. He is better now, PT if the vertigo recurs. I spent 20 minutes caring for this patient today, reviewing labs and records, seeing the patient, documenting in the record and arranging for studies. documented in this [place]12-02-2024 Telephone encounter Note* Telephone Encounter - Tiffany Tran MA - 02/15/2024 2:33 PM EST Patient has been scheduled [id number] Miscellaneous Notes* Telephone Encounter - Tiffany Tran MA - 02/15/2024 2:33 PM EST Patient has been scheduled * Telephone Encounter - Heraclio Kay MD - 02/15/2024 2:30 PM EST Add him on as a virtual appt tomorrow at 320 pm * Telephone Encounter - Rochelle Wheeler RN - 02/14/2024 10:45 AM EST S: Patient's DIL adin and Zahra spoke with [facility] nurse regarding vertigo B: Onset of symptoms/concern Last OV 12/11/23 Next OV 03/25/24 A: C/O moderate vertigo (spinning of room) that started this morning. Reports prior history of physcial therapy treatment >10 yrs ago. He is currently out of state with family.. Denies any new weakness, dizziness, numbness, change in speech or vision. R: Recommend [facility] today. Also encourage to follow up with PCP. Family agreeable to [facility] disposition out of state. Will call back if needing appointment for later in week. Caller understands care advice. Reason for Disposition [1] MODERATE dizziness (e.g., vertigo; feels very unsteady, interferes with normal activities) AND [2] has NOT been evaluated by doctor (or CRAFT DEMONSTRATOR/PA) for this Protocols used: Dizziness - [id number] documented in this [place]12-02-2024 Miscellaneous Notes* Telephone Encounter - Tiffany Tran MA - 02/15/2024 2:33 PM EST Patient has been scheduled * Telephone Encounter - Heraclio Kay MD - 02/15/2024 2:30 PM EST Add him on as a virtual appt tomorrow at 320 pm * Telephone Encounter - Rochelle Wheeler RN - 02/14/2024 10:45 AM EST S: Patient's DIL adin and Zahra spoke with [facility] nurse regarding vertigo B: Onset of symptoms/concern Last OV 12/11/23 Next OV 03/25/24 A: C/O moderate vertigo (spinning of room) that started this morning. Reports prior history of physcial therapy treatment >10 yrs ago. He is currently out of state with family.. Denies any new weakness, dizziness, numbness, change in speech or vision. R: Recommend [facility] today. Also encourage to follow up with PCP. Family agreeable to [facility] disposition out of state. Will call back if needing appointment for later in week. Caller understands care advice. Reason for Disposition [1] MODERATE dizziness (e.g., vertigo; feels very unsteady, interferes with normal activities) AND [2] has NOT been evaluated by doctor (or CRAFT DEMONSTRATOR/PA) for this Protocols used: Dizziness - [id number] documented in this encounterSWVUMedicine [facility] Community [id number] Telephone encounter Note* Telephone Encounter - Heraclio Kay MD - 02/15/2024 2:30 PM EST Add him on as a virtual appt tomorrow at 320 pm [facility] ColumbusNpxjev74-12-4699 Telephone encounter Note* Telephone Encounter - Rochelle Wheeler RN - 02/14/2024 10:45 AM EST S: Patient's DIL adin and Zahra spoke with [facility] nurse regarding vertigo B: Onset of symptoms/concern Last OV 12/11/23 Next OV 03/25/24 A: C/O moderate vertigo (spinning of room) that started this morning. Reports prior history of physcial therapy treatment >10 yrs ago. He is currently out of state with family.. Denies any new weakness, dizziness, numbness, change in speech or vision. R: Recommend [facility] today. Also encourage to follow up with PCP. Family agreeable to [facility] disposition [place] of state. Will call back if needing appointment for later in week. Caller understands care advice. Reason for Disposition [1] MODERATE dizziness (e.g., vertigo; feels very unsteady, interferes with normal activities) AND [2] has NOT been evaluated by doctor (or CRAFT DEMONSTRATOR/PA) for this Protocols used: Dizziness - [id number]-HAJHZ-LY [facility] ColumbusJsbptk25-36-2048 Miscellaneous Notes* Telephone Encounter - Rochelle Wheeler RN - 02/14/2024 10:45 AM EST S: Patient's DIL adin and Zahra spoke with [facility] nurse regarding vertigo B: Onset of symptoms/concern Last OV 12/11/23 Next OV 03/25/24 A: C/O moderate vertigo (spinning of room) that started this morning. Reports prior history of physcial therapy treatment >10 yrs ago. He is currently out of state with family.. Denies any new weakness, dizziness, numbness, change in speech or vision. R: Recommend [facility] today. Also encourage to follow up with PCP. Family agreeable to [facility] disposition [place] of state. Will call back if needing appointment for later in week. Caller understands care advice. Reason for Disposition [1] MODERATE dizziness (e.g., vertigo; feels very unsteady, interferes with normal activities) AND [2] has NOT been evaluated by doctor (or CRAFT DEMONSTRATOR/PA) for this Protocols used: Dizziness - [id number] documented in this [place]09-27-2024 History of Present illness Narrative* Heraclio Kay MD - 12/11/2023 10:20 AM EDT Images from the original note were not included. [facility]ENCE [address] [facility] [address] [facility] [address] Dept: [phone] Dept Loc: [phone] Heraclio Kay MD CHIEF COMPLAINT: Chief Complaint Patient presents with Follow-up Parkinson's Disease HISTORY OF PRESENT ILLNESS: The patient is a 78 y.o. person who returns for his tremor in his left hand dominant hand. He has had another fall since the last time. He got up without trouble but had tripped over a small uneven survace from a garage to a driveway. He was bruised in the elbow. He is still doing yardwork and gardening, but not as well as he would like to. He has trouble with going up and down steps or curbs. Nodysphagia. No constipation. He complains of being tired all of the time now. The patient reports excessive daytime sleepiness. He is sleeping 12 hours and still needing. Snoring?Yes Tired? (Tired, Fatigued, or Sleepy during the daytime) Yes Observed? (Stop Breathing or Choking/Gasping during your sleep)Yes Pressure? (High blood pressure meds?) Yes Body Mass Index is 28 or greater?Yes Age greater than 50? Yes Neck size (Men >17 in, Women >16 in)Yes Gender Male?Yes STOP BANG score 8 Past Medical History: has a past medical history of GERD (gastroesophageal reflux disease) and Hypertension. Past Surgical History: has a past surgical history that includes Skin surgery (03/2022) and Gallbladder surgery. Medications: Current Outpatient Medications: amLODIPine (Norvasc) 10 MG tablet, Take 10 mg by mouth daily., Disp: , Rfl: aspirin 81 MG EC tablet, Take 81 mg by mouth daily., Disp: , Rfl: carbidopa-levodopa CR (Sinemet CR) 25-100 MG ER tablet, Take 1 tablet by mouth 2 times daily. Do not crush, chew, or split., Disp: 180 tablet, Rfl: 1 doxazosin (Cardura) 2 MG tablet, Take 2 mg by mouth Nightly., Disp: , Rfl: losartan (Cozaar) 100 MG tablet, TAKE 1 TABLET BY MOUTH OINCE A DAY, Disp: , Rfl: metoprolol succinate XL (Toprol-XL) 50 MG 24 hr tablet, Take 50 mg by mouth daily., Disp: , Rfl: omeprazole (PriLOSEC) [address] capsule, TAKE 1 CAPSULE BY MOUTH ON THURSDAY, THURSDAY, AND THURSDAY, Disp: , Rfl: tamsulosin (Flomax) 0.4 MG 24 hr capsule, TAKE 1 CAPSULE BY MOUTH EVERY DAY AT SUPPER TIME. STOP DOXAZOSIN, Disp: , Rfl: Allergies: Simvastatin, Hydrochlorothiazide, and Iodine Social History: Social History Socioeconomic History Marital status: Spouse name: Not on file Number of children: Not on file Years of education: Not on file Highest education level: Not on file Occupational History Not on file Tobacco Use Smoking status: Never Smokeless tobacco: Never Substance and Sexual Activity Alcohol use: Not Currently Drug use: Never Sexual activity: Not on file Other Topics Concern Not on file Social History Narrative Not on file Social Determinants of Health Financial Resource Strain: Not on file Food Insecurity: Not on file Transportation Needs: Not on file Physical Activity: Not on file Stress: Not on file Social Connections: Not on file Intimate Partner Violence: Not on file Housing Stability: Not on file Family History: Family History Problem Relation Name Age of Onset Heart attack Mother Colon cancer Father Aneurysm Sister Alcohol abuse Sister Cancer Brother REVIEW OF SYSTEMS: Review of Systems Constitutional: Negative for appetite change, chills, diaphoresis, fever and unexpected weight change. HENT: Negative for dental problem and mouth sores. Eyes: Negative for discharge and itching. Respiratory: Negative for chest tightness. Cardiovascular: Negative for chest pain and leg swelling. Gastrointestinal: Negative for rectal pain and vomiting. Endocrine: Negative for polydipsia, polyphagia and polyuria. Genitourinary: Negative for decreased urine volume, flank pain and genital sores. Musculoskeletal: Negative for arthralgias. Skin: Negative for color change. Allergic/Immunologic: Negative for food allergies and immunocompromised state. Neurological: Positive for tremors. Hematological: Negative for adenopathy. Does not bruise/bleed easily. Psychiatric/Behavioral: Negative for agitation, behavioral problems, decreased concentration, sleepdisturbance and suicidal ideas. PHYSICAL EXAM: Vitals: BP 132/80 (BP Location: Right arm, Patient Position: Sitting, BP Cuff Size: Adult) Pulse 69 Ht 5' 9" (1.753 m) Wt 222 lb 3.2 oz (101 kg) BMI 32.81 kg/m General Appearance: Patient is in no apparent distress. Head is normocephalic, atraumatic Cardiovascular: Regular rate and rhythm. No heart murmurs. No carotid bruit Neurologic: Mentation: Alert and oriented x 3 to person, place and time. Speech and Language: Speech and language normal Concentration and Attention: Concentration normal Memory: Memory grossly normal Fund of Knowledge: Fund of knowledge normal Cranial Nerves: II, III, IV, V, , VII, VIII, IX, X, XI, XII tested and were intact including fundoscopic exam (optic discs) and visual field to confrontation. Motor: Strength:Strength 5 out of 5 with normal tone Alternating Movements: Mild and still worse on the left Cogwheel Rigidity: slight on left Tone: Tone is normal Tremor / Involuntary Movements: None Deep Tendon Reflexes: 1 out of 4 symmetrical in all four limbs. Coordination: Normal coordination upper and lower extremities Gait and Station: Station is mildly abnormal. Gait is mildly abnormal. Better but still jamie slightly and has decreased arm swing. DATA ASSESSMENT AND PLAN: Diagnosis Plan 1. Parkinson's disease without dyskinesia or fluctuating manifestations (HCC) 2. Obstructive sleep apnea His bradykinesia is better but not controlled, I will increase the Sinemet to 25/100 TID. I reviewed with him that he likely has CARLY, but he would like to put that off at this time. I spent 30 minutes caring for this patient today, reviewing labs and records, seeing the patient, documenting in the record and arranging for studies. documented in this [place]09-27-2024 Instructions* Patient Instructions* Heraclio Kay MD - 12/11/2023 10:20 AM EDT Please consider trying these exercise classes: [employer] Taking Control by Optimizing mobility with Total Parkinson s @ 2:[address] [place] [address] Click here for details [facility] Parkinsons Plus Exercise Class 12-12:45 pm Wednesdays [facility] [address] Contact [phone] [facility] Parkinson's Schedule [facility] Parkinsons Exercise Class 1:00 -1:45 pm Wednesdays [facility] [address]327 Contact [phone] [facility] Parkinson's [facility] Parkinson Exercise Group - [place] Mondays 1-2 pm and 2-3pm [employer] [facility] [address] [facility] [address]. enter at event center not main building on [address] and ask for Ines [phone] [facility] Parkinson's [facility] Parkinsons Fitness and Wellness Class 2:30 pm - 3:30 pm [facility] In assisted Living @ [address] [facility] [address] Contact [phone] [facility] Parkinson's [facility] Parkinson s Network present Move with Me; and Thursday of each month 11-12 pm [facility] Caf , [email or web address] [facility] Contact Shai Souza [phone] [email or web address] Move With Me [facility] Parkinson's [facility] Image Searcher [facility] Event [place] Delay the Disease Exercise Class Mondays 1pm - [address] [place] [address] [place], [place] [address] Contact [phone] [facility] Parkinson's [facility] Image Searcher [facility] Event [place] Delay the Disease Exercise class 2:oo-3:00pm [address] [facility] [address] Contact [phone] [facility] Parkinson's [facility] Move and Relax and Thursday of each month 10-11 pm [facility] Caf , [address] [facility] Contact Shai Souza [phone] @[email or web address] documented in this [place]06-27-2024 History of Present illness Narrative* Heraclio Kay MD - 09/10/2023 9:30 AM EDT Images from the original note were not included. [facility] [address] [place] [address] [facility] [address] Dept: [phone] Dept Loc: [phone] Heraclio Kay MD CHIEF COMPLAINT: Chief Complaint Patient presents with Follow-up Parkinson's Disease HISTORY OF PRESENT ILLNESS: The patient is a 78 y.o. person who returns for his tremor in his left hand dominant hand. He had afall since the last time. He had multiple things in his hands and missteps on a curb. He had bruises but was ok. He reports that he is noticing that he is having more difficulty getting out of the car. He is having more trouble with going up and down steps. No dysphagia. No constipation. He is noticing some apathy with his activities and hobbies (gardening). Past Medical History: has a past medical history of GERD (gastroesophageal reflux disease) and Hypertension. Past Surgical History: has a past surgical history that includes Skin surgery (03/2022) and Gallbladder surgery. Medications: Current Outpatient Medications: amLODIPine (Norvasc) 10 MG tablet, Take 10 mg by mouth daily., Disp: , Rfl: aspirin 81 MG EC tablet, Take 81 mg by mouth daily., Disp: , Rfl: doxazosin (Cardura) 2 MG tablet, Take 2 mg by mouth Nightly., Disp: , Rfl: losartan (Cozaar) 100 MG tablet, TAKE 1 TABLET BY MOUTH OINCE A DAY, Disp: , Rfl: metoprolol succinate XL (Toprol-XL) 50 MG 24 hr tablet, Take 50 mg by mouth daily., Disp: , Rfl: omeprazole (PriLOSEC) [address] capsule, TAKE 1 CAPSULE BY MOUTH ON THURSDAY, THURSDAY, AND THURSDAY, Disp: , Rfl: tamsulosin (Flomax) 0.4 MG 24 hr capsule, TAKE 1 CAPSULE BY MOUTH EVERY DAY AT SUPPER TIME. STOP DOXAZOSIN, Disp: , Rfl: carbidopa-levodopa CR (Sinemet CR) 25-100 MG ER tablet, Take 1 tablet by mouth 2 times daily. Do not crush, chew, or split., Disp: 180 tablet, Rfl: 1 Allergies: Simvastatin, Hydrochlorothiazide, and Iodine Social History: Social History Socioeconomic History Marital status: Spouse name: Not on file Number of children: Not on file Years of education: Not on file Highest education level: Not on file Occupational History Not on file Tobacco Use Smoking status: Never Smokeless tobacco: Never Substance and Sexual Activity Alcohol use: Not Currently Drug use: Never Sexual activity: Not on file Other Topics Concern Not on file Social History Narrative Not on file Social Determinants of Health Financial Resource Strain: Not on file Food Insecurity: Not on file Transportation Needs: Not on file Physical Activity: Not on file Stress: Not on file Social Connections: Not on file Intimate Partner Violence: Not on file Housing Stability: Not on file Family History: Family History Problem Relation Name Age of Onset Heart attack Mother Colon cancer Father Aneurysm Sister Alcohol abuse Sister Cancer Brother REVIEW OF SYSTEMS: Review of Systems Constitutional: Negative for appetite change, chills, diaphoresis, fever and unexpected weight change. HENT: Negative for dental problem and mouth sores. Eyes: Negative for discharge and itching. Respiratory: Negative for chest tightness. Cardiovascular: Negative for chest pain and leg swelling. Gastrointestinal: Negative for rectal pain and vomiting. Endocrine: Negative for polydipsia, polyphagia and polyuria. Genitourinary: Negative for decreased urine volume, flank pain and genital sores. Musculoskeletal: Negative for arthralgias. Skin: Negative for color change. Allergic/Immunologic: Negative for food allergies and immunocompromised state. Neurological: Positive for tremors. Hematological: Negative for adenopathy. Does not bruise/bleed easily. Psychiatric/Behavioral: Negative for agitation, behavioral problems, decreased concentration, sleepdisturbance and suicidal ideas. PHYSICAL EXAM: Vitals: BP (!) 164/89 (BP Location: Right arm, Patient Position: Sitting, BP Cuff Size: Adult) Pulse 85 Ht 5' 9" (1.753 m) Wt 219 lb 6.4 oz (99.5 kg) BMI 32.40 kg/m General Appearance: Patient is in no apparent distress. Head is normocephalic, atraumatic Cardiovascular: Regular rate and rhythm. No heart murmurs. No carotid bruit Neurologic: Mentation: Alert and oriented x 3 to person, place and time. Speech and Language: Speech and language normal Concentration and Attention: Concentration normal Memory: Memory grossly normal Fund of Knowledge: Fund of knowledge normal Cranial Nerves: II, III, IV, V, , VII, VIII, IX, X, XI, XII tested and were intact including fundoscopic exam (optic discs) and visual field to confrontation. Motor: Strength:Strength 5 out of 5 with normal tone Alternating Movements: Mild and still worse on the left Cogwheel Rigidity: slight on left Tone: Tone is normal Tremor / Involuntary Movements: None Deep Tendon Reflexes: 1 out of 4 symmetrical in all four limbs. Coordination: Normal coordination upper and lower extremities Gait and Station: Station is mildly abnormal. Gait is mildly abnormal DATA CBC: No results found for: "WBC", "RBC", "HGB", "HCT", "MCV", "MCH", "MCHC", "RDW", "PLT", "MPV" CMP: No results found for: "NA", "K", "CL", "CO2", "BUN", "CREATININE", "AGRATIO", "LABGLOM", "GLUCOSE", "GLU", "PROT", "CALCIUM", "BILITOT", "ALKPHOS", "AST", "ALT" BMP: No results found for: "NA", "K", "CL", "CO2", "BUN", "CREATININE", "CALCIUM", "LABGLOM", "GLUCOSE", "GLU" PT/INR: No results found for: "PROTIME", "INR" PTT: No results found for: "APTT", "PTT"[APTT} FLP: No results found for: "CHLPL", "TRIG", "HDL", "LDLCALC", "LDLDIRECT" TSH: No results found for: "TSH" VITAMIN B12: No results found for: "[id number]" FERRITIN: No results found for: "FERRITIN" ---- No results found for: "PHENYTOIN", "PHENOBARB", "VALPROATE", "CBMZ" No components found for: "TOPIRA"No results found for: "OXCARBAZE", "OXCARB" @LASTAPPOINTMENTTHISPROV@ No image results found. @RESULTINGLABINFO@ No results found for: "LEVETIRACETA", "FERRITIN", "CRP", "JO", "ANCA" No results found for: "JEWELS", "IMMUNOGLOBUL", "OLIGOBANDS" No results found for: "[id number]", "HEPCAB" No results found for: "CRP", "ANATITER", "ANCA" ASSESSMENT AND PLAN: Diagnosis Plan 1. Parkinson's disease without dyskinesia or fluctuating manifestations (HCC) His bradykinesia is worse enough now so that I am starting him on carb-levo ER 25/100 BID. He is also developing apathy which I warned him to watch. I spent 30 minutes caring for this patient today, reviewing labs and records, seeing the patient, documenting in the record and arranging for studies. documented in this [place]01-31-2024 Discharge summary Author Anu Morrison [facility] April 15, 2023 11:13am Note Date/Time April 15, 2023 1 1:13am [facility] Physical Therapy [facility] [address] [facility] [place] [address] / REHABILITATION SERVICES DISCHARGE SUMMARY MR#: [id number] Acct: [id number] Name: LON DIOR Rep #: [id number] : 1945 77 From: Anu Morrison T Referring Dr.: Dr. Heraclio Kay MD Status: REG RCR Insurance: [employer] SELF PAY INSURANCE Discharge Summary D/C summary: It has been my pleasure to treat LON DIOR referred by Dr. Heraclio Kay MD, with the diagnosis of Parkinsonism for a total of 8 visit(s). Discharge Date: 04/15/23 Please see the following information for a summary of their discharge status. Subjective Subjective: Pt has been sick with diarrhea since Thursday and has not been out of bed. He wants me to go easy on him today. The dizziness went away. Pain LBP: Pain Intensity (Out of 10): 0 Objective Objective/Function: Posture: upright posture CATSIB: 120/120 FGA: 23 opp arm and leg X 12 each leg with CGA Goals Goal 1:: I HEP Goal 2:: Be able to step off a curb X 10 in a row without AD Goal 3:: Be able to complete X 10 standing opp arm and legs without LOB and without messing up sequence Goal Progress: Goal Met Goal 4:: Increase balance (FGA was 18 on eval) Goal Progress: Goal Met Goal 5:: Increase balance (catsib was 110/120 on eval with Foam EC the issue) Goal Progress: Goal Met Goal 6:: Walk with more upright posture with heel to toe gait pattern Goal Progress: Goal Met Plan Plan: DC PT to own walking period D/C Information Discharge Comments: DC PT to indep walking program d/c sentence: If there are questions or concerns regarding this patient's physical therapy, please feel free to call me at [phone]. Thank you for the referral of thispatient. Sincerely, MARYJANE Arreola Balance/Gait/Functional tests Balance/Special Test Scores Functional Gait Assessment Score: 23 % Disability: 23.3400 CATSIB Score (Max score 120 seconds): 110 Lower Extremity Functional Score: 64 <Electronically signed by Anu Morrison MPT> 04/15/23 1113 CC: Dr. Heraclio Kay MD; Dr. Tab Dewitt MD ~ Signed [facility] Work Phone: 1(944) 350-879512-20-2023 History of Present illness Narrative* Heraclio Kay MD - 03/04/2023 11:00 AM EST Images from the original note were not included. [facility] [address] [place] [address] [facility] [address] Dept: [phone] Dept Loc: [phone] Heraclio Kay MD CHIEF COMPLAINT: Chief Complaint Patient presents with Follow-up Tremors HISTORY OF PRESENT ILLNESS: The patient is a 77 y.o. person who returns for his tremor in his left hand (dominant hand. He reports that he is having to be more careful on uneven surfaces or stair steps. He is finding that he ishaving to use railing. He is noticing hat getting out of low seats is a challenge. No dysphagia. Novoice change. Not having constipation. Past Medical History: has a past medical history of GERD (gastroesophageal reflux disease) and Hypertension. Past Surgical History: has a past surgical history that includes Skin surgery (03/2022) and Gallbladder surgery. Medications: Current Outpatient Medications: amLODIPine (Norvasc) 10 MG tablet, Take 10 mg by mouth daily., Disp: , Rfl: aspirin 81 MG EC tablet, Take 81 mg by mouth daily., Disp: , Rfl: losartan (Cozaar) 100 MG tablet, TAKE 1 TABLET BY MOUTH OINCE A DAY, Disp: , Rfl: metoprolol succinate XL (Toprol-XL) 50 MG 24 hr tablet, Take 50 mg by mouth daily., Disp: , Rfl: omeprazole (PriLOSEC) [address] capsule, TAKE 1 CAPSULE BY MOUTH ON THURSDAY, THURSDAY, AND THURSDAY, Disp: , Rfl: tamsulosin (Flomax) 0.4 MG 24 hr capsule, TAKE 1 CAPSULE BY MOUTH EVERY DAY AT SUPPER TIME. STOP DOXAZOSIN, Disp: , Rfl: doxazosin (Cardura) 2 MG tablet, Take 2 mg by mouth Nightly., Disp: , Rfl: Allergies: Simvastatin, Hydrochlorothiazide, and Iodine Social History: Social History Socioeconomic History Marital status: Spouse name: Not on file Number of children: Not on file Years of education: Not on file Highest education level: Not on file Occupational History Not on file Tobacco Use Smoking status: Never Smokeless tobacco: Never Substance and Sexual Activity Alcohol use: Not Currently Drug use: Never Sexual activity: Not on file Other Topics Concern Not on file Social History Narrative Not on file Social Determinants of Health Financial Resource Strain: Not on file Food Insecurity: Not on file Transportation Needs: Not on file Physical Activity: Not on file Stress: Not on file Social Connections: Not on file Intimate Partner Violence: Not on file Housing Stability: Not on file Family History: Family History Problem Relation Name Age of Onset Heart attack Mother Colon cancer Father Aneurysm Sister Alcohol abuse Sister Cancer Brother REVIEW OF SYSTEMS: Review of Systems Constitutional: Negative for appetite change, chills, diaphoresis, fever and unexpected weight change. HENT: Negative for dental problem and mouth sores. Eyes: Negative for discharge and itching. Respiratory: Negative for chest tightness. Cardiovascular: Negative for chest pain and leg swelling. Gastrointestinal: Negative for rectal pain and vomiting. Endocrine: Negative for polydipsia, polyphagia and polyuria. Genitourinary: Negative for decreased urine volume, flank pain and genital sores. Musculoskeletal: Negative for arthralgias. Skin: Negative for color change. Allergic/Immunologic: Negative for food allergies and immunocompromised state. Neurological: Positive for tremors. Hematological: Negative for adenopathy. Does not bruise/bleed easily. Psychiatric/Behavioral: Negative for agitation, behavioral problems, decreased concentration, sleepdisturbance and suicidal ideas. PHYSICAL EXAM: Vitals: BP (!) 150/86 (BP Location: Left arm) Pulse 67 Wt 219 lb (99.3 kg) BMI 32.34 kg/m General Appearance: Patient is in no apparent distress. Head is normocephalic, atraumatic Cardiovascular: Regular rate and rhythm. No heart murmurs. No carotid bruit Neurologic: Mentation: Alert and oriented x 3 to person, place and time. Speech and Language: Speech and language normal Concentration and Attention: Concentration normal Memory: Memory grossly normal Fund of Knowledge: Fund of knowledge normal Cranial Nerves: II, III, IV, V, , VII, VIII, IX, X, XI, XII tested and were intact including fundoscopic exam (optic discs) and visual field to confrontation. Motor: Strength:Strength 5 out of 5 with normal tone Alternating Movements: Mild on left hand and left ankle Cogwheel Rigidity: slight on left Tone: Tone is normal Tremor / Involuntary Movements: None Deep Tendon Reflexes: 1 out of 4 symmetrical in all four limbs. Coordination: Normal coordination upper and lower extremities Gait and Station: Station is abnormal. Gait is abnormal DATA CBC: No results found for: "WBC", "RBC", "HGB", "HCT", "MCV", "MCH", "MCHC", "RDW", "PLT", "MPV" CMP: No results found for: "NA", "K", "CL", "CO2", "BUN", "CREATININE", "AGRATIO", "LABGLOM", "GLUCOSE", "GLU", "PROT", "CALCIUM", "BILITOT", "ALKPHOS", "AST", "ALT" BMP: No results found for: "NA", "K", "CL", "CO2", "BUN", "CREATININE", "CALCIUM", "LABGLOM", "GLUCOSE", "GLU" PT/INR: No results found for: "PROTIME", "INR" PTT: No results found for: "APTT", "PTT"[APTT} FLP: No results found for: "CHLPL", "TRIG", "HDL", "LDLCALC", "LDLDIRECT" TSH: No results found for: "TSH" VITAMIN B12: No results found for: "[id number]" FERRITIN: No results found for: "FERRITIN" ---- No results found for: "PHENYTOIN", "PHENOBARB", "VALPROATE", "CBMZ" No components found for: "TOPIRA"No results found for: "OXCARBAZE", "OXCARB" @LASTAPPOINTMENTTHISPROV@ No image results found. @RESULTINGLABINFO@ No results found for: "LEVETIRACETA", "FERRITIN", "CRP", "JO", "ANCA" No results found for: "JEWELS", "IMMUNOGLOBUL", "OLIGOBANDS" No results found for: "[id number]", "HEPCAB" No results found for: "CRP", "ANATITER", "ANCA" ASSESSMENT AND PLAN: Diagnosis Plan 1. Parkinsonism, unspecified Parkinsonism type External referral to Physical Therapy He is now looking more Parkinsonian. [facility], [facility] I spent 30 minutes caring for this patient today, reviewing labs and records, seeing the patient, documenting in the record and arranging for studies. documented in this [place]06-27-2023 History of Present illness Narrative* Heraclio Kay MD - 09/09/2022 10:30 AM EDT Images from the original note were not included. [facility] [address] [facility] [address] [facility] [address] Dept: [phone] Dept Loc: [phone] Heraclio Kay MD Thank you for your kind request for a neurological consultation on this patient. CHIEF COMPLAINT: Chief Complaint Patient presents with New Patient Tremors HISTORY OF PRESENT ILLNESS: The patient is a 77 y.o. person who presents with tremor in the left hand. He notices it with picking up a cup of coffee. His is left dominant. He reports that he has lost his "beautiful handwriting." He notices the issues with silverware, but not with tools. His reports that he is having trouble with walking. His reports that he has had falls with steps and sidewalks, uneven surfaces. No dysphagia, no constipation, no REM behavior disorder. Past Medical History: has a past medical history of GERD (gastroesophageal reflux disease) and Hypertension. Past Surgical History: has a past surgical history that includes Skin surgery (03/2022) and Gallbladder surgery. Medications: Current Outpatient Medications: amLODIPine (Norvasc) 10 MG tablet, Take 10 mg by mouth daily., Disp: , Rfl: aspirin 81 MG EC tablet, Take 81 mg by mouth daily., Disp: , Rfl: doxazosin (Cardura) 2 MG tablet, Take 2 mg by mouth Nightly., Disp: , Rfl: losartan (Cozaar) 100 MG tablet, TAKE 1 TABLET BY MOUTH OINCE A DAY, Disp: , Rfl: metoprolol succinate XL (Toprol-XL) 50 MG 24 hr tablet, Take 50 mg by mouth daily., Disp: , Rfl: omeprazole (PriLOSEC) [address] capsule, TAKE 1 CAPSULE BY MOUTH ON THURSDAY, THURSDAY, AND THURSDAY, Disp: , Rfl: Allergies: Patient has no known allergies. Social History: Social History Socioeconomic History Marital status: Spouse name: Not on file Number of children: Not on file Years of education: Not on file Highest education level: Not on file Occupational History Not on file Tobacco Use Smoking status: Never Smokeless tobacco: Never Substance and Sexual Activity Alcohol use: Not Currently Drug use: Never Sexual activity: Not on file Other Topics Concern Not on file Social History Narrative Not on file Social Determinants of Health Financial Resource Strain: Not on file Food Insecurity: Not on file Transportation Needs: Not on file Physical Activity: Not on file Stress: Not on file Social Connections: Not on file Intimate Partner Violence: Not on file Housing Stability: Not on file Family History: Family History Problem Relation Name Age of Onset Heart attack Mother Colon cancer Father Aneurysm Sister Alcohol abuse Sister Cancer Brother REVIEW OF SYSTEMS: Review of Systems Constitutional: Negative for appetite change, chills, diaphoresis, fever and unexpected weight change. HENT: Negative for dental problem and mouth sores. Eyes: Negative for discharge and itching. Respiratory: Negative for chest tightness. Cardiovascular: Negative for chest pain and leg swelling. Gastrointestinal: Negative for rectal pain and vomiting. Endocrine: Negative for polydipsia, polyphagia and polyuria. Genitourinary: Negative for decreased urine volume, flank pain and genital sores. Musculoskeletal: Negative for arthralgias. Skin: Negative for color change. Allergic/Immunologic: Negative for food allergies and immunocompromised state. Neurological: Positive for tremors. Hematological: Negative for adenopathy. Does not bruise/bleed easily. Psychiatric/Behavioral: Negative for agitation, behavioral problems, decreased concentration, sleepdisturbance and suicidal ideas. PHYSICAL EXAM: Vitals: BP (!) 153/84 (BP Location: Left arm, Patient Position: Sitting, BP Cuff Size: Adult) Pulse 65 Ht 5' 9" (1.753 m) Wt 223 lb 3.2 oz (101 kg) BMI 32.96 kg/m General Appearance: Patient is in no apparent distress. Head is normocephalic, atraumatic Cardiovascular: Regular rate and rhythm. No heart murmurs. No carotid bruit Neurologic: Mentation: Alert and oriented x 3 to person, place and time. Speech and Language: Speech and language normal Concentration and Attention: Concentration normal Memory: Memory normal Fund of Knowledge: Fund of knowledge normal Cranial Nerves: II, III, IV, V, , VII, VIII, IX, X, XI, XII tested and were intact including fundoscopic exam (optic discs) and visual field to confrontation. Motor: Strength:Strength 5 out of 5 with normal tone Alternating Movements: Normal Cogwheel Rigidity: None Tone: Tone is normal Tremor / Involuntary Movements: None Deep Tendon Reflexes: 1 out of 4 symmetrical in all four limbs. Sensory: Normal sensation upper and lower extremities Coordination: Normal coordination upper and lower extremities Gait and Station: Station is normal. Gait is normal DATA CBC: No results found for: WBC, RBC, HGB, HCT, MCV, MCH, MCHC, RDW, PLT, MPV CMP: No results found for: NA, K, CL, CO2, BUN, CREATININE, AGRATIO, LABGLOM, GLUCOSE, GLU, PROT, CALCIUM, BILITOT, ALKPHOS, AST, ALT BMP: No results found for: NA, K, CL, CO2, BUN, CREATININE, CALCIUM, LABGLOM, GLUCOSE, GLU PT/INR: No results found for: PROTIME, INR PTT: No results found for: APTT, PTT[APTT} FLP: No results found for: CHLPL, TRIG, HDL, LDLCALC, LDLDIRECT TSH: No results found for: TSH VITAMIN B12: No results found for: [id number] FERRITIN: No results found for: FERRITIN ---- No results found for: PHENYTOIN, PHENOBARB, VALPROATE, CBMZ No components found for: TOPIRANo results found for: OXCARBAZE, OXCARB @LASTAPPOINTMENTTHISPROV@ No image results found. @RESULTINGLABINFO@ No results found for: LEVETIRACETA, FERRITIN, CRP, JO, ANCA No results found for: JEWELS, IMMUNOGLOBUL, OLIGOBANDS No results found for: FTB60PP, HEPCAB No results found for: CRP, ANATITER, ANCA, ANCA ASSESSMENT AND PLAN: Diagnosis Plan 1. 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 I will follow itbecause his history of some imbalance and his prior exposure to pesticides and herbicides means we have to watch. Will follow him back up in 6 months. No need for meds at this time. Exercise was encouraged. I spent 45 minutes caring for this patient today, reviewing labs and records, seeing the patient, documenting in the record and arranging for studies. [facility] Diagnosis Tremor- Primary Abnormal involuntary movements [facility] Diagnosis Onset Date Resolution Status Essential (primary) hypertension [facility] Work Phone: Evaluation note* Diagnosis Parkinsonism, unspecified Parkinsonism type- Primary [facility] Diagnosis Parkinson's disease without dyskinesia or fluctuating manifestations (HCC)- Primary [facility] Diagnosis Parkinson's disease without dyskinesia or fluctuating manifestations (HCC)- Primary Obstructive sleep apnea Obstructive sleep apnea (adult) (pediatric) [facility] Diagnosis Parkinson's disease without dyskinesia or fluctuating manifestations (HCC)- Primary Obstructive sleep apnea Obstructive sleep apnea (adult) (pediatric) Vertigo Dizziness and giddiness [facility]* Diagnosis Parkinson's disease without dyskinesia or fluctuating manifestations (HCC)- Primary Mild cognitive impairment with memory loss Mild cognitive impairment, so stated Obstructive sleep apnea Obstructive sleep apnea (adult) (pediatric) Vertigo Dizziness and giddiness Fatigue, unspecified type [facility] Diagnosis Mild cognitive impairment with memory loss Mild cognitive impairment, so stated Vertigo Dizziness and giddiness [facility]* Diagnosis Obstructive sleep apnea- Primary Obstructive sleep apnea (adult) (pediatric) [facility]* Diagnosis Obstructive sleep apnea Obstructive sleep apnea (adult) (pediatric) Fatigue, unspecified type [facility]* Diagnosis Obstructive sleep apnea- Primary Obstructive sleep apnea (adult) (pediatric) [facility]* Diagnosis Obstructive sleep apnea Obstructive sleep apnea (adult) (pediatric) [facility]* Diagnosis Obstructive sleep apnea- Primary Obstructive sleep apnea (adult) (pediatric) [facility]* Diagnosis CARLY (obstructive sleep apnea)- Primary Obstructive sleep apnea (adult) (pediatric) [facility]* Diagnosis CARLY (obstructive sleep apnea)- Primary Obstructive sleep apnea (adult) (pediatric) Mild cognitive impairment with memory loss Mild cognitive impairment, so stated Parkinson's disease without dyskinesia or fluctuating manifestations (HCC) [facility]* Diagnosis CARLY (obstructive sleep apnea)- Primary Obstructive sleep apnea (adult) (pediatric) Mild cognitive impairment with memory loss Mild cognitive impairment, so stated Parkinson's disease without dyskinesia or fluctuating manifestations (HCC) [facility]* Diagnosis Onset Date Resolution Status Admit Date Essential (primary) hypertension chronic December 22 3:36pm [facility] Work Phone: Reason for referral (narrative)No [facility] for [facility]: Reason for visit Narrative* Imaging (Routine) - Closed Specialty Diagnoses / Procedures Referred By Contac t Referred To Contact Radiology Diagnoses Mild cognitive impairment with memory loss Vertigo Procedures MR brain wo contrast MR brain wo contrast Heraclio Kay MD [address] [place] [address] Phone: tel: fax: Referral ID Status Reason Start Date Expiration Date Visits Re quested Visits Authorized [id number] Closed 05/18/2024 05/18/2025 1 1 [facility] for visit Narrative* Hospital - Outpatient (Routine) - Closed Specialty Diagnoses / Procedures Referred By Homer lewis Referred To Contact Sleep Medicine Diagnoses Obstructive sleep apnea Fatigue, unspecified type Procedures Polysomnography Heraclio Kay MD [address] [facility] [address] [place] [address] Phone: tel: fax: Referral ID Status Reason Start Date Expiration Date Visits Re quested Visits Authorized [id number] Closed 05/18/2024 05/13/2025 1 1 [facility] for visit Narrative* Hospital - Outpatient (Routine) - Closed Specialty Diagnoses / Procedures Referred By Homer lewis Referred To Contact Sleep Medicine Diagnoses Obstructive sleep apnea Procedures Home sleep test Heraclio Kay MD [address] [facility] [address] [place] [address] Phone: tel: fax: [facility] [address] [place] [address] Phone: tel: fax: Referral ID Status Reason Start Date Expiration Date Visits Re quested Visits Authorized [id number] Closed 06/10/2024 06/05/2025 1 1 [facility] [employer] Chief Complaint and Reason for Visit Chief Complaint 1 Y FU Reason for Visit Essential (primary) hypertension Chief Complaint 1 Y FU [facility] HERE Reason for Visit Essential (primary) hypertension Chief Complaint Admit Date 1 Y FU December 22, 2024 3: 36pm Reason for Visit Admit Date Essential (primary) hypertension December 22, 2024 3:36pm Family History No Family History Records Found Relationship Condition Age at Onset Recorded Date/T nayeli father Malignant neoplasm of colon Unknown brother Hypertension Unknown sister Hypertension Unknown Reason for Referral Specialty Diagnoses / Procedures Referred By Homer lewis Referred To Contact Physical Therapy Diagnoses Parkinsonism, unspecified Parkinsonism type Procedures AL OFFICE/OUTPATIENT NEW HIGH MDM 60-74 MINUTES Heraclio Kay MD [address] [facility] [address] [place] [address] Referral ID Status Reason Start Date Expiration Date Visits Requested Visits Authorized [id number] Pending Review Eval and Treat 3 08/31/2023 99 99 Summary Purpose Advance Directives No Advanced Directives Records FoundNo Advanced Directives Records Found Additional Source Comments Reason for Visit (unrecogniz ed section and content) Reason Comments New Patient Tremors Reason Comments Follow-up Tremors Reason Comments Follow-up Parkinson's Disease Reason Onset Date Comments Vertigo 02/14/2024 Reason Comments Follow-up Reason Comments Follow-up Memory Loss Reason Onset Date Comments Other 06/19/2024 Regarding CPAP m achine Reason Onset Date Comments Orders 07/05/2024 Reason Onset Date Comments Sleep Study 07/08/2024 Reason Comments Follow-up Sleeping Problem Memory Loss Care Teams (unrecognized sec tion and content) Snow Removing Supervisor Relationship Specialty Start Date End Date Norman Dewitt MD [address] [facility] [address] [place] [address] PCP - General Geriatric Medicine 09/09/22 Team Status: Active Member Role Status Dates Dr. Tab Dewitt MD Family Provider Active Dr. Tab Dewitt MD Primary Care Provider Active Team Status: Inactive Member Role Status Dates Dr. Tab Dewitt MD Primary Care Provider, Referring Provider Active Dr. Lukas Cheng MD Attending Provider Active Team Status: Inactive Member Role Status Dates Dr. Tab Dewitt MD Primary Care Provider, Attending Provider Active Snow Removing Supervisor Relationship Specialty Start Date End Date Norman Dewitt MD [address] [facility] [address] [place] [phone] PCP - General Geriatric Medicine 09/09/22 Team Status: Inactive Member Role Status Dates Dr. Tab Dewitt MD Primary Care Provider Active Dr. Heraclio Kay MD Attending Provider Active Snow Removing Supervisor Relationship Specialty Start Date End Date Norman Dewitt MD [address] [facility] [address] [place] [phone] PCP - General Geriatric Medicine 09/09/22 Snow Removing Supervisor Relationship Specialty Start Date End Date Norman Dewitt MD [address] [place] [address] PCP - General Geriatric Medicine 09/09/22 Snow Removing Supervisor Relationship Specialty Start Date End Date Norman Dewitt MD [address] [place] [address] PCP - General Geriatric Medicine 09/09/22 Snow Removing Supervisor Relationship Specialty Start Date End Date Norman Dewitt MD [address] [place] [address] PCP - General Geriatric Medicine 09/09/22 Snow Removing Supervisor Relationship Specialty Start Date End Date Norman Dewitt MD [address] [place] [address] PCP - General Geriatric Medicine 09/09/22 Snow Removing Supervisor Relationship Specialty Start Date End Date Norman Dewitt MD [address] [place] [address] PCP - General Geriatric Medicine 09/09/22 Snow Removing Supervisor Relationship Specialty Start Date End Date Norman Dewitt MD [address] [place] [address] PCP - General Geriatric Medicine 09/09/22 Snow Removing Supervisor Relationship Specialty Start Date End Date Norman Dewitt MD [address] [place] [address] PCP - General Geriatric Medicine 09/09/22 Snow Removing Supervisor Relationship Specialty Start Date End Date Norman Dewitt MD [address] [place] [address] PCP - General Geriatric Medicine 09/09/22 Snow Removing Supervisor Relationship Specialty Start Date End Date Norman Dewitt MD [address] [place] [address] PCP - General Geriatric Medicine 09/09/22 Snow Removing Supervisor Relationship Specialty Start Date End Date Norman Dewitt MD [address] [place] [address] PCP - General Geriatric Medicine 09/09/22 Snow Removing Supervisor Relationship Specialty Start Date End Date Norman Dewitt MD [address] [place] [phone] PCP - General Geriatric Medicine 09/09/22 Team Status: Active Member Role/Relationship Status Dates Dr. Tab Dewitt MD Primary care physician Active Team Status: Inactive Member Role/Relationship Status Dates Dr. Tab Dewitt MD Primary care physician Active Start: December 22, 2024 End: December 22, 2024 Dr. Tab Dewitt MD Referring Provider Active Start: December 22, 2024 End: December 22, 2024 Latha GROVE, PA Attending physician Active Start: December 22, 2024 End: December 22, 2024 Goals (unrecognized section and content) Goals may be documented in a n alternate sectionGoals may be documented in an alternate sectionGoals may be documented in an alternate section (unrecognized sect ion and content) No Status Records FoundNo Status Records Found INFORMATION SOURCE (unrecogn ized section and content) DATE CREATED AUTHOR 11/22/2024 [facility] DATE CREATED AUTHOR AUTHOR'S ORGANIZ ATION 01/13/2025 [facility] FOR RECORDS PERTAINING TO PATIENTS WHO ARE OR HAVE BEEN ENROLLED IN A CHEMICAL DEPENDENCY/SUBSTANCEABUSE PROGRAM, SOME INFORMATION MAY BE OMITTED. This clinical summary was aggregated from multiple sources. Caution should be exercised in using it in the provision of clinical care. This summary normalizes information from multiple sources, and as a consequence, information in this document may materially change the coding, format and clinical context of patient data. In addition, data may be omitted in some cases. CLINICAL DECISIONS SHOULD BE BASED ON THE PRIMARY CLINICAL RECORDS. [facility] [employer] [facility]. provides no warranty or guarantee of the accuracy or completeness of information in this document.
== END | disposition home or self-care (01) ==
PROVIDERS: PCP Family Medicine Geriatric Medicine; Referring Provider Physician Assistant Medical; Visit Provider Physician Assistant Medical
DX: I25.10 Atherosclerotic heart disease of native coronary artery without angina pectoris (principal)
CPT/HCPCS: 93306; Q9957; A4216; C8929

== ENCOUNTER → 2025-02-13 | Outpatient (CLI) | payer MEDICARE, SELFPAY ==
[2025-02-13 09:15] LABS: Hematocrit 46.4 % (40-54); Hemoglobin 15.8 g/dL (13.0-16.5); Immature Granulocytes Count 0.030 X10^3/uL (0.0-0.0); Mean Corp Hgb Conc 34.1 g/dL (32-36); Mean Corpuscular Volume 93.5 fL (80-94); Mean Platelet Vol. 9.7 fl (6.2-12.0); NRBC Flagged by Analyzer 0 % (0-5); Platelet Count 105 K/mm3 (150-450); RBC Distribution Width CV 11.9 % (11.6-14.6); RBC Distribution Width SD 41.1 fl (35.1-43.9); Red Blood Count 4.96 M/mm3 (4.6-6.2); White Blood Count 5.4 K/mm3 (4.4-11.0)
[2025-02-13 10:16] LABS: Cholesterol 183 mg/dL (<=200); Low Density Lipoprotein Calc. 95 mg/dL; Triglycerides 274 mg/dL; Very Low Density Lipoprotein 55 mg/dL (5-40); Vitamin D,25 Hydroxy 20.7 ng/mL (30-100); cholesterol:hdl ratio screen 4.42
[2025-02-13 10:17] LABS: AST(SGOT) 34 U/L (<=37); Alanine Aminotransfer ALT/SGPT 21 U/L (<=46); Albumin, Serum 4.5 g/dL (3.4-4.8); Alkaline Phosphatase 48 U/L (40-129); Anion Gap 12 (5-15); BUN 24 mg/dL (4-19); BUN/Creat Ratio 18.5 RATIO (10-20); Calcium,Total 9.1 mg/dL (7.6-11.0); Carbon Dioxide 24.0 mmol/L (21.0-32.0); Chloride 105 mmol/L (98-108); Globulin 2.6 g/dL (2.2-4.2); Glucose 152 mg/dL (70-99); Potassium 4.3 mmol/L (3.3-5.1)
[2025-02-13 16:58] LABS: Xtra Tube Kwok EXTRA TUBE
== END | disposition home or self-care (01) ==
LOC: POLAB3 08:57
PROVIDERS: PCP Family Medicine Geriatric Medicine; Visit Provider Family Medicine Geriatric Medicine
DX: E55.9 Vitamin D deficiency, unspecified (principal); E11.65 Type 2 diabetes mellitus with hyperglycemia; E78.5 Hyperlipidemia, unspecified; I10 Essential (primary) hypertension
CPT/HCPCS: 36415; 80053; 80061; 82306; 83036; 84443; 85025